=== PATIENT | female | born 1950 | race Caucasian/White ===

== ENCOUNTER 2019-03-24 09:52 | Outpatient (CLI) | payer MEDICARE, SELFPAY | END 2019-03-24 09:53 | disposition home or self-care (01) | PROVIDERS: PCP Family Medicine; Visit Provider Nurse Practitioner Family | DX: J30.9 Allergic rhinitis, unspecified (principal); J45.909 Unspecified asthma, uncomplicated | CPT/HCPCS: 36415; 82103; 82785; 86003 ==

== ENCOUNTER 2019-04-12 09:10 | Outpatient (CLI) | payer MEDICARE, SELFPAY ==
--- NOTE | ~2019-04-12 | XR_ITS ---
XR knee RT 2V, XR knee LT 2V 04/12/2019 09:41 Indication: Chronic knee pain Procedure: 2 views of each knee Comparison: No prior studies for comparison. Findings: There is mild-moderate bilateral tricompartment osteoarthritis of the knees. No fracture or traumatic malalignment. No significant joint effusion. No radiopaque foreign bodies. Impression: 1: Mild-moderate tricompartment osteoarthritis of the knees. Reviewed, dictated and finalized at location B. ING MANAGER Impression: 1: Mild-moderate tricompartment osteoarthritis of the knees. Impression: 1: Mild-moderate tricompartment osteoarthritis of the knees.
== END 2019-04-12 09:11 | disposition home or self-care (01) ==
PROVIDERS: PCP Family Medicine; Visit Provider Nurse Practitioner Family
DX: M17.0 Bilateral primary osteoarthritis of knee (principal)
CPT/HCPCS: 73560

== ENCOUNTER 2019-05-08 09:51 | Outpatient (CLI) | payer MEDICARE, SELFPAY ==
--- NOTE | ~2019-05-08 | DEXA_ITS ---
Bone Density Report Name: Susan Pradhan Age: 68 Sex: Female Ethnicity: White Date of : 1950 Indication: postmenopausal; height loss; asthma or emphysema; hysterectomy; rheumatoid arthritis; Referring Provider: Keesha Henriquez Study: Bone densitometry was performed. Exam Date: May 08, 2019 Accession number: [id number] Bone Density: Region BMD T-score Z-score Classification AP Spine (L1, L2, L3) 1.178 1.5 3.5 Normal Femoral Neck (Left) 0.842 -0.1 1.7 Normal Total Hip (Left) 1.110 1.4 2.9 Normal Total Hip Bilateral Avg 1.091 1.2 2.7 Normal Femoral Neck (Right) 0.900 0.5 2.2 Normal Total Hip (Right) 1.070 1.0 2.5 Normal World Health Organization criteria for BMD impression classify patients as: Normal (T-score at or above -1.0), Osteopenia (T-score between -1.0 and -2.5), or Osteoporosis (T-score at or below -2.5). 10-year Fracture Risk: FRAX not reported because: All T-scores for Spine Total, Hip Total, Femoral Neck at or above -1.0 Clinical Information Provided by Patient: Has rheumatoid arthritis Has the following medical conditions: Asthma or Emphysema, Hysterectomy Patient maximum height was 64 Menopause Age: 33 No regular weight bearing exercise Drinks caffeinated beverages Onset of menses at age 10 Number of children 2 Impression: The patient has normal bone mass. Discussion: BONE DENSITY IS ABOVE THE MINIMUM DESIRABLE LEVEL AT ALL SKELETAL SITES TESTED. This patient?s bone mineral density is above the minimum desirable level (T-score -1.0 or better) at all sites measured. The patient should follow a healthful lifestyle (good nutrition with adequate calcium and vitamin D, and appropriate weight-bearing exercise). Follow-Up: Consider repeating this study in 5 years or sooner if there is some new clinical indication. Reported by: [facility] on 05/08/2019 10:26:00 AM. Reviewed, dictated and finalized at location AFortino KAMARA
== END 2019-05-08 09:52 | disposition home or self-care (01) ==
LOC: ANHIMG 09:54
PROVIDERS: PCP Family Medicine; Visit Provider Student in an Organized Health Care Education/Training Program
DX: Z78.0 Asymptomatic menopausal state (principal)
CPT/HCPCS: 77080

== ENCOUNTER 2019-05-08 09:58 | Outpatient (CLI) | payer MEDICARE, SELFPAY ==
--- NOTE | ~2019-05-08 | MMUS_ITS ---
EXAMINATION: MM diagnostic salud BI w jazmin, US breast BI limited HISTORY: Six-month follow-up for probably benign bilateral breast masses TECHNIQUE: Craniocaudal, mediolateral, and mediolateral oblique 3-D tomosynthesis images of the shreyas ts were performed and synthetic 2-D images were generated. CAD analysis was submitted and interpreted . High resolution limited bilateral breast ultrasound was performed. COMPARISON: 11/03/2018, 03/02/2018, 02/24/2018, 11/09/2016, 09/12/2015 BREAST PARENCHYMAL COMPOSITION: There are scattered areas of fibroglandular density. FINDINGS: MAMMOGRAPHIC FINDINGS: Right breast: Again seen are small, obscured masses in the upper outer quadrant of the breast which d o not demonstrate suspicious interval change. There is a mass of the anterior third of the inner righ t breast which is stable on multiple prior examinations and considered benign given the lack of inter billy change. Scattered benign-appearing calcifications are present. No suspicious architectural distor tion is identified. Left breast: There is no evidence of suspicious mass, calcification, or architectural distortion to suggest malignancy. There has been no suspicious interval change. ULTRASOUND: Right breast: Masses with the appearance of cysts and complicated cysts in the upper outer quadrant o f the right breast are stable to decreased in size since the prior examination. The largest measures 6 mm x 2 mm at the 7:00 location 7 cm from the nipple. None demonstrate suspicious interval change. Left breast: There is a stable 7 mm x 2 mm oval, circumscribed, parallel, hypoechoic mass at the 12:0 0 location with centimeters from the nipple with no posterior features or internal vascularity. There is a stable 6 mm oval, circumscribed, complex cystic and solid mass at the 10:00 location 0.5 cm fro m the nipple which appears to be within the skin. IMPRESSION: 1. Stable, probably benign bilateral breast masses. 2. Given one year of interval stability, recommend 12 month followup bilateral diagnostic mammogram a nd ultrasound. BI-RADS category 3, probably benign findings. Reviewed, dictated and finalized at location A. IMPRESSION: 1. Stable, probably benign bilateral breast masses. 2. Given one year of interval stability, recommend 12 month followup bilateral diagnostic mammogram and ultrasound. BI-RADS category 3, probably benign findings.
== END 2019-05-08 09:59 | disposition home or self-care (01) ==
LOC: ANHIMG 10:01
PROVIDERS: PCP Family Medicine; Visit Provider Nurse Practitioner Family
DX: R92.8 Other abnormal and inconclusive findings on diagnostic imaging of breast (principal)
CPT/HCPCS: 76642; 77062; 77066; 77080; G0279

== ENCOUNTER 2019-06-22 11:42 | Outpatient (CLI) | payer MEDICARE, SELFPAY ==
[2019-06-22 12:14] LABS: Basophils Absolute Auto 0.1 K/mm3 (0.0-0.1); Basophils Percent Auto 0.6 % (0.2-1.2); Eosinophils Absolute Auto 0.1 K/mm3 (0-0.3); Eosinophils Percent Auto 1.3 % (0-4.4); Hematocrit 37.3 % (37.0-47.0); Hemoglobin 11.9 g/dL (12.0-15.0); Immature Granulocyte Absolute 0.03 K/mm3 (0.00-0.031); Immature Granulocyte Percent A 0.3 % (0-0.5); Lymphocytes Absolute Auto 2.52 K/mm3 (0.9-3.2); Lymphocytes Percent Auto 22.5 % (18.3-44.2); Mean Corpuscular HGB Conc 31.9 g/dl (32-36); Mean Corpuscular Hemoglobin 28.7 pg (26-34); Mean Corpuscular Volume 90.1 fl (80-100); Mean Platelet Volume 9.5 fl (7.4-10.4); Monocytes Absolute Auto 0.8 K/mm3 (0.1-0.6); Monocytes Percent Auto 7.3 % (2.6-8.5); Neutrophils Absolute Auto 7.6 K/mm3 (1.3-6.7); Platelet Count Result 329 k/mm3 (150-375); Red Blood Count 4.14 M/mm3 (4.2-5.4); Red Cell Distribution Width 14.2 % (11.5-14.5); White Blood Count 11.2 K/mm3 (4.5-10.0)
[2019-06-22 12:26] LABS: Blood Urea Nitrogen 17 mg/dL (7-17); Calcium 9.3 mg/dL (8.4-10.2); Carbon Dioxide 29 mmol/L (22-30); Chloride 100 mmol/L (98-107); Estimated Glomerular Filt Rate > 60; Glucose 172 mg/dL (65-105); Potassium 3.7 mmol/L (3.4-5.0); Sodium 137 mmol/L (137-145)
== END 2019-06-22 11:43 | disposition home or self-care (01) ==
LOC: ANHLAB 11:45
PROVIDERS: PCP Family Medicine; Visit Provider Nurse Practitioner Family
DX: I10 Essential (primary) hypertension (principal); R42 Dizziness and giddiness
CPT/HCPCS: 36415; 80048; 84443; 85025

== ENCOUNTER 2019-07-17 09:58 | Outpatient (CLI) | payer MEDICARE, SELFPAY ==
[2019-07-17 10:15] LABS: Basophils Absolute Auto 0.1 K/mm3 (0.0-0.1); Basophils Percent Auto 0.6 % (0.2-1.2); Eosinophils Absolute Auto 0.2 K/mm3 (0-0.3); Hematocrit 38.3 % (37.0-47.0); Hemoglobin 12.4 g/dL (12.0-15.0); Immature Granulocyte Absolute 0.05 K/mm3 (0.00-0.031); Immature Granulocyte Percent A 0.4 % (0-0.5); Lymphocytes Absolute Auto 2.25 K/mm3 (0.9-3.2); Mean Corpuscular HGB Conc 32.4 g/dl (32-36); Mean Corpuscular Hemoglobin 28.8 pg (26-34); Mean Corpuscular Volume 88.9 fl (80-100); Mean Platelet Volume 9.1 fl (7.4-10.4); Monocytes Absolute Auto 0.7 K/mm3 (0.1-0.6); Monocytes Percent Auto 6.4 % (2.6-8.5); Neutrophils Percent Auto 70.6 % (45.5-73.1); Platelet Count Result 285 k/mm3 (150-375); Red Blood Count 4.31 M/mm3 (4.2-5.4); Red Cell Distribution Width 13.9 % (11.5-14.5); White Blood Count 11.3 K/mm3 (4.5-10.0)
[2019-07-17 10:27] LABS: Blood Urea Nitrogen 14 mg/dL (7-17); Calcium 9.5 mg/dL (8.4-10.2); Carbon Dioxide 30 mmol/L (22-30); Chloride 97 mmol/L (98-107); Estimated Glomerular Filt Rate > 60; Glucose 210 mg/dL (65-105); Potassium 3.6 mmol/L (3.4-5.0); Sodium 134 mmol/L (137-145)
== END 2019-07-17 09:59 | disposition home or self-care (01) ==
LOC: ANHLAB 10:00
PROVIDERS: PCP Family Medicine; Visit Provider Nurse Practitioner Family
DX: R42 Dizziness and giddiness (principal); D72.829 Elevated white blood cell count, unspecified; E11.9 Type 2 diabetes mellitus without complications; I10 Essential (primary) hypertension
CPT/HCPCS: 36415; 80048; 84443; 85025

== ENCOUNTER 2019-07-31 09:04 | Outpatient (CLI) | payer MEDICARE, SELFPAY ==
[2019-07-31 09:20] LABS: Hematocrit 36.7 % (37.0-47.0); Hemoglobin 11.7 g/dL (12.0-15.0); Mean Corpuscular HGB Conc 31.9 g/dl (32-36); Mean Corpuscular Hemoglobin 28.7 pg (26-34); Mean Platelet Volume 9.2 fl (7.4-10.4); Platelet Count Result 300 k/mm3 (150-375); Red Blood Count 4.08 M/mm3 (4.2-5.4); Red Cell Distribution Width 14.2 % (11.5-14.5); White Blood Count 12.4 K/mm3 (4.5-10.0)
[2019-07-31 09:35] LABS: Blood Urea Nitrogen 21 mg/dL (7-17); Calcium 9.2 mg/dL (8.4-10.2); Carbon Dioxide 30 mmol/L (22-30); Chloride 100 mmol/L (98-107); Estimated Glomerular Filt Rate > 60; Glucose 203 mg/dL (65-105); Potassium 3.6 mmol/L (3.4-5.0); Sodium 139 mmol/L (137-145)
== END 2019-07-31 09:05 | disposition home or self-care (01) ==
LOC: ANHLAB 09:07
PROVIDERS: PCP Family Medicine; Visit Provider Nurse Practitioner Family
DX: E87.1 Hypo-osmolality and hyponatremia (principal); D72.829 Elevated white blood cell count, unspecified
CPT/HCPCS: 36415; 80048; 85027

== ENCOUNTER 2019-08-30 09:27 | Outpatient (CLI) | payer MEDICARE, SELFPAY ==
[2019-08-30 09:42] LABS: Basophils Percent Auto 0.5 % (0.2-1.2); Eosinophils Absolute Auto 0.1 K/mm3 (0-0.3); Eosinophils Percent Auto 1.6 % (0-4.4); Hematocrit 34.6 % (37.0-47.0); Hemoglobin 10.9 g/dL (12.0-15.0); Immature Granulocyte Absolute 0.03 K/mm3 (0.00-0.031); Immature Granulocyte Percent A 0.3 % (0-0.5); Lymphocytes Absolute Auto 2.25 K/mm3 (0.9-3.2); Lymphocytes Percent Auto 26.2 % (18.3-44.2); Mean Corpuscular HGB Conc 31.5 g/dl (32-36); Mean Corpuscular Hemoglobin 28.4 pg (26-34); Mean Corpuscular Volume 90.1 fl (80-100); Mean Platelet Volume 8.5 fl (7.4-10.4); Monocytes Absolute Auto 0.7 K/mm3 (0.1-0.6); Monocytes Percent Auto 8.5 % (2.6-8.5); Neutrophils Absolute Auto 5.4 K/mm3 (1.3-6.7); Neutrophils Percent Auto 62.9 % (45.5-73.1); Platelet Count Result 234 k/mm3 (150-375); Red Blood Count 3.84 M/mm3 (4.2-5.4); Red Cell Distribution Width 14.3 % (11.5-14.5); White Blood Count 8.6 K/mm3 (4.5-10.0)
== END 2019-08-30 09:28 | disposition home or self-care (01) ==
LOC: ANHLAB 09:30
PROVIDERS: PCP Family Medicine; Visit Provider Internal Medicine Hematology & Oncology
DX: D72.829 Elevated white blood cell count, unspecified (principal)
CPT/HCPCS: 36415; 85025

== ENCOUNTER 2019-08-31 14:43 | Outpatient (CLI) | payer MEDICARE, SELFPAY ==
[2019-08-31 16:37] LABS: Iron 62 ug/dL (37-170)
[2019-08-31 16:43] LABS: Alanine Aminotransferase 22 U/L (4-35); Albumin Level 4.2 g/dL (3.5-5.1); Alkaline Phosphatase 103 U/L (38-126); Anion Gap 13.9 mmol/L (7-16); Aspartate Amino Transferase 32 U/L (14-36); Bilirubin,Total 0.5 mg/dL (0.2-1.3); Blood Urea Nitrogen 27 mg/dL (7-17); Calcium 9.1 mg/dL (8.4-10.2); Carbon Dioxide 26 mmol/L (22-30); Chloride 101 mmol/L (98-107); Estimated Glomerular Filt Rate > 60; Glucose 168 mg/dL (65-105); Potassium 3.9 mmol/L (3.4-5.0); Sodium 137 mmol/L (137-145)
[2019-08-31 16:51] LABS: Percent Iron Saturation 18 % (20-50)
== END 2019-08-31 14:44 | disposition home or self-care (01) ==
PROVIDERS: PCP Family Medicine; Visit Provider Internal Medicine Hematology & Oncology
DX: D64.9 Anemia, unspecified (principal)
CPT/HCPCS: 36415; 80053; 82607; 82728; 83540; 83550

== ENCOUNTER 2019-09-11 08:57 | Outpatient (CLI) | payer MEDICARE, SELFPAY ==
[2019-09-11 09:39] LABS: Add Urine Microscopic? YES; Appearance Urine Cloudy (Clear); Bilirubin Urine Negative (Negative); Blood Urine 1+ (Negative); Color Urine Yellow (Yellow); Glucose Urine UA Negative (Negative); Ketones Urine Negative (Negative); Leukocyte Esterase Ur 3+ LEU/UL (Negative); Mucus Urine Rare /lpf; Nitrate Urine Negative (Negative); Protein Urine 2+ mg/dL (Negative); Specific Grav Ur 1.023 (1.001-1.035); Squamous Epithelial Cell Urine Many /hpf (Few); Urobilinogen Urine Negative mg/dL (<2.0)
[2019-09-11 09:47] LABS: Albumin Level 4.3 g/dL (3.5-5.1); Anion Gap 13.8 mmol/L (7-16); Blood Urea Nitrogen 29 mg/dL (7-17); Calcium 9.2 mg/dL (8.4-10.2); Carbon Dioxide 28 mmol/L (22-30); Chloride 99 mmol/L (98-107); Estimated Glomerular Filt Rate 44; Glucose 173 mg/dL (65-105); Phosphorus 3.7 mg/dL (2.5-4.5); Potassium 3.8 mmol/L (3.4-5.0); Sodium 137 mmol/L (137-145)
[2019-09-11 10:01] LABS: Creatinine Urine 189.1 mg/dL; Total Protein Urine Random 59 mg/dL
== END 2019-09-11 08:58 | disposition home or self-care (01) ==
LOC: ANHLAB 09:02
PROVIDERS: PCP Family Medicine; Visit Provider Internal Medicine Nephrology
DX: I10 Essential (primary) hypertension (principal)
CPT/HCPCS: 36415; 80069; 81001; 82088; 82570; 84156; 84244; 87077; 87086; 87088

== ENCOUNTER 2019-09-26 07:36 | Outpatient (CLI) | payer MEDICARE, SELFPAY ==
--- NOTE | ~2019-09-26 | US_ITS ---
EXAMINATION: US retroperitoneal duplex ltd EXAM DATE: 09/26/2019 09:05 INDICATION: Essential hypertension. Kidney TECHNIQUE: Multiple grayscale and Doppler images of the kidneys and renal arteries were obtained. T here is no prior study for comparison. FINDINGS: The aorta peak systolic velocity is 75 cm/s. The right renal artery peak systolic velocity is 164 cm/ s in the proximal segment, 128 cm/s in the mid segment, and 119 cm/s in the distal segment. The left renal artery peak systolic velocity is 121 cm/s in the proximal segment, 107 cm/s in the mid segment, and 116 cm/s in the distal segment. IMPRESSION: 1. Renal artery Doppler velocities within normal limits. Reviewed, dictated and finalized at location B.
== END 2019-09-26 07:37 | disposition home or self-care (01) ==
PROVIDERS: PCP Family Medicine; Visit Provider Internal Medicine Nephrology
DX: I10 Essential (primary) hypertension (principal)
CPT/HCPCS: 93976

== ENCOUNTER 2019-10-18 14:51 | Outpatient (CLI) | payer MEDICARE, SELFPAY ==
[2019-10-18 18:05] LABS: Folic Acid 7.5 ng/mL (2.76->20)
== END 2019-10-18 14:52 | disposition home or self-care (01) ==
PROVIDERS: PCP Family Medicine; Visit Provider Internal Medicine Hematology & Oncology
DX: D51.9 Vitamin B12 deficiency anemia, unspecified (principal)
CPT/HCPCS: 36415; 82607; 82746

== ENCOUNTER 2019-11-27 10:07 | Outpatient (CLI) | payer MEDICARE, SELFPAY ==
[2019-11-27 10:57] LABS: Basophils Absolute Auto 0.1 K/mm3 (0.0-0.1); Basophils Percent Auto 0.6 % (0.2-1.2); Eosinophils Absolute Auto 0.2 K/mm3 (0-0.3); Eosinophils Percent Auto 1.4 % (0-4.4); Hemoglobin 10.8 g/dL (12.0-15.0); Immature Granulocyte Absolute 0.03 K/mm3 (0.00-0.031); Immature Granulocyte Percent A 0.3 % (0-0.5); Lymphocytes Absolute Auto 2.13 K/mm3 (0.9-3.2); Lymphocytes Percent Auto 19.8 % (18.3-44.2); Mean Corpuscular HGB Conc 31.8 g/dl (32-36); Mean Corpuscular Hemoglobin 29.1 pg (26-34); Mean Corpuscular Volume 91.6 fl (80-100); Mean Platelet Volume 8.9 fl (7.4-10.4); Monocytes Absolute Auto 0.8 K/mm3 (0.1-0.6); Monocytes Percent Auto 7.2 % (2.6-8.5); Neutrophils Absolute Auto 7.6 K/mm3 (1.3-6.7); Neutrophils Percent Auto 70.7 % (45.5-73.1); Platelet Count Result 263 k/mm3 (150-375); Red Blood Count 3.71 M/mm3 (4.2-5.4); Red Cell Distribution Width 14.1 % (11.5-14.5); White Blood Count 10.8 K/mm3 (4.5-10.0)
[2019-11-27 11:01] LABS: Blood Urea Nitrogen 13 mg/dL (8-26); Carbon Dioxide 29 mmol/L (22-30); Chloride 97 mmol/L (98-109); Estimated Glomerular Filt Rate > 60; Glucose 136 mg/dL (70-105); Potassium 3.6 mmol/L (3.5-4.9); Sodium 140 mmol/L (138-146)
[2019-11-27 13:19] LABS: Iron 45 ug/dL (37-170)
[2019-11-27 13:22] LABS: Alanine Aminotransferase 21 U/L (4-35); Albumin Level 4.1 g/dL (3.5-5.1); Alkaline Phosphatase 77 U/L (38-126); Anion Gap 9 mmol/L (8-16); Aspartate Amino Transferase 33 U/L (14-36); Bilirubin,Total 0.5 mg/dL (0.2-1.3); Blood Urea Nitrogen 15 mg/dL (7-17); Calcium 9.4 mg/dL (8.4-10.2); Carbon Dioxide 32 mmol/L (22-30); Chloride 98 mmol/L (98-107); Estimated Glomerular Filt Rate > 60; Glucose 135 mg/dL (65-105); Sodium 139 mmol/L (137-145)
[2019-11-27 14:20] LABS: Percent Iron Saturation 13 % (20-50)
[2019-11-27 15:20] LABS: Folic Acid 6.9 ng/mL (2.76->20)
== END 2019-11-27 10:08 | disposition home or self-care (01) ==
LOC: ANHLAB 10:09
PROVIDERS: PCP Family Medicine; Visit Provider Internal Medicine Hematology & Oncology
DX: D64.9 Anemia, unspecified (principal); D51.9 Vitamin B12 deficiency anemia, unspecified
CPT/HCPCS: 36415; 80048; 80053; 82607; 82728; 82746; 83540; 83550; 85025

== ENCOUNTER 2020-01-26 11:53 | Outpatient (NON) | payer MEDICARE, SELFPAY ==
[2020-01-27 01:18] LABS: SARS-CoV-2 RNA PCR Negative
== END 2020-01-26 11:54 ==
LOC: ANHCOVIDDT 11:55
PROVIDERS: PCP Family Medicine; Visit Provider Nurse Practitioner Family
DX: Z20.828 Contact with and (suspected) exposure to other viral communicable diseases (principal)
CPT/HCPCS: 87635; C9803; U0003

== ENCOUNTER 2020-02-16 09:17 | Outpatient (CLI) | payer MEDICARE, SELFPAY ==
[2020-02-16 09:45] LABS: Basophils Percent Auto 0.4 % (0.2-1.2); Eosinophils Absolute Auto 0.1 K/mm3 (0-0.3); Eosinophils Percent Auto 1.2 % (0-4.4); Hematocrit 33.4 % (37.0-47.0); Hemoglobin 10.6 g/dL (12.0-15.0); Immature Granulocyte Absolute 0.02 K/mm3 (0.00-0.031); Immature Granulocyte Percent A 0.2 % (0-0.5); Lymphocytes Absolute Auto 2.15 K/mm3 (0.9-3.2); Mean Corpuscular HGB Conc 31.7 g/dl (32-36); Mean Corpuscular Volume 91.5 fl (80-100); Mean Platelet Volume 9.4 fl (7.4-10.4); Monocytes Absolute Auto 0.7 K/mm3 (0.1-0.6); Neutrophils Absolute Auto 6.8 K/mm3 (1.3-6.7); Neutrophils Percent Auto 69.2 % (45.5-73.1); Platelet Count Result 252 k/mm3 (150-375); Red Blood Count 3.65 M/mm3 (4.2-5.4); Red Cell Distribution Width 13.6 % (11.5-14.5); White Blood Count 9.8 K/mm3 (4.5-10.0)
[2020-02-16 15:18] LABS: Iron 51 ug/dL (37-170)
[2020-02-16 15:23] LABS: Alanine Aminotransferase 18 U/L (4-35); Alkaline Phosphatase 85 U/L (38-126); Anion Gap 10 mmol/L (8-16); Aspartate Amino Transferase 26 U/L (14-36); Bilirubin,Total 0.4 mg/dL (0.2-1.3); Blood Urea Nitrogen 19 mg/dL (7-17); Calcium 9.2 mg/dL (8.4-10.2); Carbon Dioxide 29 mmol/L (22-30); Chloride 100 mmol/L (98-107); Estimated Glomerular Filt Rate > 60; Glucose 176 mg/dL (65-105); Potassium 3.6 mmol/L (3.4-5.0); Sodium 139 mmol/L (137-145)
[2020-02-16 15:30] LABS: Percent Iron Saturation 14 % (20-50)
[2020-02-16 16:23] LABS: Folic Acid 8.1 ng/mL (2.76->20)
== END 2020-02-16 09:18 | disposition home or self-care (01) ==
LOC: ANHLAB 09:19
PROVIDERS: PCP Family Medicine; Visit Provider Internal Medicine Hematology & Oncology
DX: D72.829 Elevated white blood cell count, unspecified (principal); D51.9 Vitamin B12 deficiency anemia, unspecified; D64.9 Anemia, unspecified
CPT/HCPCS: 36415; 80053; 82607; 82728; 82746; 83540; 83550; 85025

== ENCOUNTER 2020-03-11 08:23 | Outpatient (CLI) | payer MEDICARE, SELFPAY ==
[2020-03-11 09:07] LABS: Anion Gap 7 mmol/L (8-16); Blood Urea Nitrogen 19 mg/dL (7-17); Calcium 8.9 mg/dL (8.4-10.2); Carbon Dioxide 31 mmol/L (22-30); Chloride 102 mmol/L (98-107); Estimated Glomerular Filt Rate 55; Glucose 128 mg/dL (65-105); Phosphorus 3.1 mg/dL (2.5-4.5); Potassium 3.9 mmol/L (3.4-5.0); Sodium 140 mmol/L (137-145)
[2020-03-11 09:10] LABS: Creatinine Urine 171.7 mg/dL; Total Protein Urine Random 31 mg/dL; Ur Ttl Prot Creatinine Ratio 0.18 mg/mg (0-0.20)
== END 2020-03-11 08:24 | disposition home or self-care (01) ==
PROVIDERS: PCP Family Medicine; Visit Provider Internal Medicine Nephrology
DX: R80.8 Other proteinuria (principal); I10 Essential (primary) hypertension
CPT/HCPCS: 36415; 80069; 82570; 84156

== ENCOUNTER 2020-05-14 18:08 | Observation (INO) | payer MEDICARE, SELFPAY ==
[2020-05-14] VITALS (24 sets, daily range): BP systolic 97–119; BP diastolic 44–88; PULSE 52–95; RESP 14–23; TEMP 36.3–36.6; O2SAT 93–100; BMI 38.1
--- NOTE | ~2020-05-14 | XR_ITS ---
EXAMINATION: XR chest 1V portable INDICATION: Slurred speech, transient alteration of awareness TECHNIQUE: Portable AP chest at 1832 hours COMPARISON: 01/06/2019 FINDINGS: The lungs are free of acute opacities. There is no pleural effusion or pneumothorax. The ca rdiomediastinal silhouette is normal. IMPRESSION: 1. No acute cardiopulmonary abnormality. Reviewed, dictated and finalized at location A.
--- NOTE | ~2020-05-14 | CT_ITS ---
EXAMINATION: CTA brain carotid DATE: 05/14/2020 19:24 INDICATION: Slurred speech and difficulty walking TECHNIQUE: Computed tomographic angiography (CTA) of the head was performed with 100 mL Omnipaque-350 intravenous contrast. CTA of the neck was performed with intravenous contrast. The dose-length produ ct was 1151.34 mGy-cm. Maximum intensity projection and volume rendered 3D-reconstructions were creat ed by the technologist on a separate workstation. Automated exposure control and iterative reconstruc tion technique were employed. COMPARISON: CT from today and MRI dated 04/22/2018 FINDINGS: HEAD CTA: There is no acute intraparenchymal hemorrhage. There is a stable 11 mm mass at the undersur face of the right cerebellar tentorium, consistent with a meningioma. No evidence of acute infarction . There is mild periventricular and subcortical hypodensity probably related to small vessel ischemic disease. There is mild prominence of the sulci and ventricles related to cerebral atrophy. Intracran ial calcified cerebral atherosclerosis is noted. There are no extra-axial collections. There is no ma ss effect or midline shift. Changes in the globes are likely from ocular lens surgery. . The visuali zed sinuses and mastoid air cells are well aerated. There is no significant stenosis of the basilar artery or posterior cerebral arteries. There is no si gnificant stenosis of the intracranial internal carotid arteries or the anterior or middle cerebral a rteries. The anterior communicating artery and posterior communicating arteries are normal. There is no aneurysm. NECK CTA: The thyroid gland is unremarkable. The submandibular and parotid glands are symmetric. Ther e is no lymphadenopathy. There are no masses identified. The airway is unremarkable. There is moderat e cervical spondylosis. The superior mediastinum is unremarkable. There is 6% stenosis of the proximal right internal carotid artery relative to normal distal artery l umen diameter (NASCET criteria). There is 0% stenosis of the proximal left internal carotid artery re lative to normal distal artery lumen diameter. IMPRESSION: 1. No acute intracranial abnormality. Normal head CTA. 2. 6% stenosis of the proximal right internal carotid artery relative to normal distal artery lumen d iameter (NASCET criteria). 3. 0% stenosis of the proximal left internal carotid artery relative to normal distal artery lumen di ameter. Reviewed, dictated and finalized at location A. IMPRESSION: 1. No acute intracranial abnormality. Normal head CTA. 2. 6% stenosis of the proximal right internal carotid artery relative to normal distal artery lumen diameter (NASCET criteria). 3. 0% stenosis of the proximal left internal carotid artery relative to normal distal artery lumen diameter.
--- NOTE | ~2020-05-14 | CT_ITS ---
EXAMINATION: CT brain wo con INDICATION: Slurred speech COMPARISON: None TECHNIQUE: Standard unenhanced head CT. The dose-length product (DLP) was 605.33 mGy-cm. The mA was a djusted according to patient size. Iterative reconstruction technique was employed. FINDINGS: There is no acute intraparenchymal hemorrhage. No evidence of acute infarction. There is a stable 11 mm mass at the undersurface of the right cerebellar tentorium, consistent with a meningioma . There is mild periventricular and subcortical hypodensity probably related to small vessel ischemic disease. There is mild prominence of the sulci and ventricles related to cerebral atrophy. Intracran ial calcified cerebral atherosclerosis is noted. There are no extra-axial collections. There is no ma ss effect or midline shift. Changes in the globes are likely from ocular lens surgery. The visualize d sinuses and mastoid air cells are well aerated. IMPRESSION: 1. No acute intracranial abnormality. 2. Age related findings. As per stroke protocol, I called these results to the Emergency Department, and discussed with STEVEN Styles at 1636 hours on 05/14/2020. Reviewed, dictated and finalized at location A.
--- NOTE | ~2020-05-14 | US_ITS ---
EXAMINATION: US carotid duplex BI EXAM DATE: 05/15/2020 12:50 INDICATION: Vertigo. TECHNIQUE: Grayscale, color and pulsed Doppler images of the cervical carotid arteries were obtained . The degree of vessel stenosis is placed in one of the following categories: normal, <50% stenosis, 50-69% stenosis, >=70% stenosis but less than near-occlusion, near-occlusion, or occlusion. Note that percent stenosis relative to normal distal artery lumen diameter is indirectly measured from velocit y measurements as described by Davi, et al. Radiology 2003; 229:340-346. Correlation is made to CTA from yesterday. FINDINGS: RIGHT SIDE: Right common carotid artery peak systolic velocity (PSV in cm/s): 66 Right bulb/internal carotid artery peak systolic velocity (PSV in cm/s): 78 Right internal carotid artery end diastolic velocity (EDV in cm/s): 66 Right ICA/CCA peak systolic ratio: 1.2 Right external carotid artery peak systolic velocity (PSV in cm/s): 68 Right vertebral artery antegrade flow: yes There is mild carotid bulb plaque. Velocity and Doppler waveforms in the common and internal carotid arteries is normal. LEFT SIDE: Left common carotid artery peak systolic velocity (PSV in cm/s): 82 Left bulb/internal carotid artery peak systolic velocity (PSV in cm/s): 77 Left internal carotid artery end diastolic velocity (EDV in cm/s): 15 Left ICA/CCA peak systolic ratio: 0.9 Left external carotid artery peak systolic velocity (PSV in cm/s): 62 Left vertebral artery antegrade flow: yes There is mild carotid bulb plaque. Velocity and Doppler waveforms in the common and internal carotid arteries is normal. IMPRESSION: 1. Less than 50% stenosis right internal carotid artery. 2. Less than 50% stenosis left internal carotid artery. Reviewed, dictated and finalized at location A.
--- NOTE | ~2020-05-14 | MR_ITS ---
EXAMINATION: MR brain/brain stem wo/w con DATE: 05/15/2020 12:44 INDICATION: Cerebrovascular accident. Dizziness. TECHNIQUE: Magnetic resonance imaging (MRI) of the brain and brainstem was performed without and with 19 mL MultiHance intravenous contrast. Sequences included sagittal and axial T1-weighted FSE, axial diffusion-weighted FS EPI, axial T2*-weighted GRE, axial T2-weighted FLAIR Propeller, and axial T2-we ighted Propeller. Postcontrast sequences included axial, sagittal, and coronal T1-weighted FSE. Appar ent diffusion coefficient (ADC) maps were created. COMPARISON: Brain MRI 04/22/2018, head CT 05/14/2020 FINDINGS: There are scattered areas of nonspecific increased T2-weighted signal intensity in the cere bral white matter, which is within normal limits for the patient's age. There is an 11 mm enhancing e xtra-axial mass at the undersurface of the right cerebellar tentorium, stable from 04/22/18. There is no intracranial hemorrhage. The ventricles are normal in size. There is a trace left mastoid effusion . There are likely changes of ocular lens replacement surgeries. The paranasal sinuses are clear. IMPRESSION: 1. Stable 11 mm extra-axial mass at the undersurface of the right cerebellar tentorium, consistent wi th a meningioma. Reviewed, dictated and finalized at location A. IMPRESSION: 1. Stable 11 mm extra-axial mass at the undersurface of the right cerebellar te ntorium, consistent with a meningioma.
--- NOTE | 2020-05-14 18:13 | ECG_ITS ---
Measurements Intervals [place] Rate: 54 P: 86 HI: 180 QRS: -11 QRSD: 95 T: 93 QT: 494 QTc: 468 Interpretive Statements SINUS BRADYCARDIA BORDERLINE R WAVE PROGRESSION, ANTERIOR LEADS CONSIDER INFERIOR INFARCT, AGE INDETERMINATE BORDERLINE ST-T WAVE ABNORMALITY- HIGH LATERAL LEADS BASELINE ARTIFACT- II, III, AVF, V3-V6 ABNORMAL ECG Electronically Signed On 05-14-2020 19:02:25 CDT by Mansoor Hernandes D.O.
[2020-05-14 18:30] LABS: Glucose Point of Care 198 (65-105)
[2020-05-14 18:33] LABS: Basophils Absolute Auto 0.1 K/mm3 (0.0-0.1); Basophils Percent Auto 0.6 % (0.2-1.2); Eosinophils Absolute Auto 0.2 K/mm3 (0-0.3); Eosinophils Percent Auto 1.8 % (0-4.4); Hematocrit 32.3 % (37.0-47.0); Hemoglobin 9.9 g/dL (12.0-15.0); Immature Granulocyte Absolute 0.03 K/mm3 (0.00-0.031); Immature Granulocyte Percent A 0.3 % (0-0.5); Lymphocytes Absolute Auto 3.58 K/mm3 (0.9-3.2); Lymphocytes Percent Auto 30.9 % (18.3-44.2); Mean Corpuscular HGB Conc 30.7 g/dl (32-36); Mean Corpuscular Hemoglobin 28.8 pg (26-34); Mean Corpuscular Volume 93.9 fl (80-100); Mean Platelet Volume 9.1 fl (7.4-10.4); Monocytes Absolute Auto 1.1 K/mm3 (0.1-0.6); Monocytes Percent Auto 9.8 % (2.6-8.5); Neutrophils Absolute Auto 6.6 K/mm3 (1.3-6.7); Neutrophils Percent Auto 56.6 % (45.5-73.1); Platelet Count Result 294 k/mm3 (150-375); Red Blood Count 3.44 M/mm3 (4.2-5.4); Red Cell Distribution Width 14.1 % (11.5-14.5); White Blood Count 11.6 K/mm3 (4.5-10.0)
--- NOTE | 2020-05-14 18:34 | ED.NEUROSD ---
HPI - Neuro Symptoms/Deficit General Chief Complaint: Suspected CVA <Damien Howard PA-C - Last Filed: 05/14/20 20:25> Stated Complaint: unsteady on feet/room spinning/slurred speech 1730 <Damien Howard PA-C - Last Filed: 05/14/20 20:25> Time Seen by Provider: 05/14/20 18:14 <Damien Howard PA-C - Last Filed: 05/14/20 20:25> Source: patient <Damien Howard PA-C - Last Filed: 05/14/20 20:25> Mode of arrival: ambulatory <GRZEGORZ Celaya Last Filed: 05/14/20 20:25> Limitations: no limitations <Damien Howard PA-C - Last Filed: 05/14/20 20:25> History of Present Illness HPI Narrative: Patient is 69-year-old female who presents to emergency department for evaluation of dizziness unsteady gait that occurred around 530 when coming to dinner she had been fine prior to this patient on arrival is accompanied by son presents per EMS patient is alert and oriented x3 notes some dizziness with sitting up but otherwise is answering questions appropriately. Patient on arrival has clear speech resting comfortably moving all extremities without difficulty denies any injury or trauma patient has been speaking with her sister just prior to onset of symptoms and the discussion was normal per son who spoke with the sister. <Damien Howard PA-C - Last Filed: 05/14/20 20:25> Related Data Home Medications: Home Medications Medication Instructions Recorded Confirmed aspirin 81 mg tablet,delayed 81 mg PO DAILY 01/19/19 05/06/20 release <Damien Howard PA-C - Last Filed: 05/14/20 20:25> Allergies/Adverse Reactions: Allergies Allergy/AdvReac Type Severity Reaction Status Date / Time No Known Allergies Allergy Verified 05/06/20 10:01 <Damien Howard PA-C - Last Filed: 05/14/20 20:25> Review of Systems Review of Systems: All systems reviewed & are unremarkable except as noted in HPI and below <Damien Howard PA-C - Last Filed: 05/14/20 20:25> [facility] Past Medical History Medical History: Medical History Acid reflux Anxiety Asthma BMI 34.0-34.9,adult BMI 37.0-37.9, adult BMI 38.0-38.9,adult COPD (chronic obstructive pulmonary disease) Diabetes Frequent headaches H/O vaginal delivery x2 11/1971, 07/1970 History of blood transfusion History of one miscarriage 1968 HTN (hypertension) Pneumonia <Damien Howard PA-C - Last Filed: 05/14/20 20:25> Surgical History Surgical History: Surgical History H/O dilation and curettage 1968 H/O total hysterectomy with removal of both tubes and ovaries 1995 History of bladder surgery 1995 [place] teeth removed 1971 <Damien Howard PA-C - Last Filed: 05/14/20 20:25> Family History Family History: Family History Mother , 79 Family history of cardiovascular disease Breast cancer Hypertension Diabetes mellitus Acute myocardial infarction Thrombocyte disorder Father , 64 Family history of pancreatic cancer Family history of lung cancer High cholesterol Hypertension Diabetes mellitus Sibling Family history of lung cancer Ovarian cancer Diabetes mellitus Grandparent Family history of lung cancer Son , 46 Family history of lung cancer Family history of malignant neoplasm of brain Family history of malignant neoplasm of bone Family history of primary malignant neoplasm of liver Hypertension Diabetes mellitus <Damien Howard PA-C - Last Filed: 05/14/20 20:25> Social History Social History: Social History Smoking status: Former smoker Tobacco type: cigarettes Second hand tobacco smoke exposure: Yes Alcohol intake: former Substance use: never Substance u
[2020-05-14 18:46] LABS: INR 0.9
[2020-05-14 18:47] LABS: Partial Thromboplastin Time 23.5 SECONDS (22.3-36.8)
[2020-05-14 18:52] LABS: Anion Gap 7 mmol/L (8-16); Blood Urea Nitrogen 18 mg/dL (7-17); Calcium 8.7 mg/dL (8.4-10.2); Carbon Dioxide 29 mmol/L (22-30); Chloride 104 mmol/L (98-107); Estimated CRCL calculation 48 ml/min; Estimated Glomerular Filt Rate 49; Glucose 195 mg/dL (65-105); Sodium 140 mmol/L (137-145)
[2020-05-14 19:03] LABS: Troponin I < 0.012 ng/mL (0.000-0.034)
--- NOTE | 2020-05-14 19:10 | PC.NURSE ---
Report given to ELADIO Hinojosa and Gabriela RN
--- NOTE | 2020-05-14 19:27 | PC.NURSE ---
assumed care of pt. report from Tanisha.
[2020-05-14] MEDS: SODIUM CHLORIDE 0.9% IV 500 ML 999 ML IV CONT (19:39)
[2020-05-14] MEDS: ASPIRIN 325 MG ENTERIC TABLET PO (21:10)
[2020-05-14 21:40] LABS: Add Urine Microscopic? YES; Appearance Urine Cloudy (Clear); Bilirubin Urine Negative (Negative); Blood Urine Negative (Negative); Color Urine Yellow (Yellow); Glucose Urine UA Negative (Negative); Ketones Urine Negative (Negative); Leukocyte Esterase Ur 1+ LEU/UL (Negative); Mucus Urine Rare /lpf; Nitrate Urine Negative (Negative); Protein Urine 1+ mg/dL (Negative); Specific Grav Ur 1.038 (1.001-1.035); Squamous Epithelial Cell Urine Many /hpf (Few)
--- NOTE | 2020-05-14 23:51 | PC.NURSE ---
This patient, Susan Pradhan, was admitted to 3 [facility] Surg Room 300-01 @ 22:55. Patient/family oriented to hospital policies and general routines including ID bracelet, bed and alarms, visiting hours, pain management, procedures, bathroom and other care routines, personal items, smoking policy, room service/diet, and visiting hours. Information on how to activate the Rapid Response Team has been discussed. Patient/Family are encouraged to report perceived risks to care and to ask questions if they do not understand what they are told or what they should do.
[2020-05-15] VITALS (8 sets, daily range): BP systolic 151–177; BP diastolic 57–64; PULSE 49–57; RESP 18–20; TEMP 36.2–36.6; O2SAT 97–98
--- NOTE | 2020-05-15 04:58 | PM.IMHP ---
H&P: HPI History of Present Illness Date/Time: 05/15/20 04:58 Chief Complaint: Slurred speech Narrative: 69-year-old female with a past medical history of meningioma, hypertension, diabetes and obesity who presented to the ER due to slurred speech. The patient had MRI of the brain at [facility] November 2019 to monitor her meningioma a demonstrated stable size and overall appearance of a meningioma emanating from the posterior medial right tentorium. Stable moderate atrophy and small-vessel ischemic disease [facility] Past Medical History Medical History (Updated 05/15/20 @ 05:07 by Kelsea Stanley DO) Acid reflux Anxiety Asthma COPD (chronic obstructive pulmonary disease) Mildly decreased DLCO on PFTs December 2018 Diabetes Frequent headaches H/O vaginal delivery x2 11/1971, 07/1970 History of blood transfusion History of one miscarriage 1968 HTN (hypertension) Pneumonia Surgical History Surgical History H/O dilation and curettage 1968 H/O total hysterectomy with removal of both tubes and ovaries 1995 History of bladder surgery 1995 [place] teeth removed 1971 Family History Family History Mother , 79 Family history of cardiovascular disease Breast cancer Hypertension Diabetes mellitus Acute myocardial infarction Thrombocyte disorder Father , 64 Family history of pancreatic cancer Family history of lung cancer High cholesterol Hypertension Diabetes mellitus Sibling Family history of lung cancer Ovarian cancer Diabetes mellitus Grandparent Family history of lung cancer Son , 46 Family history of lung cancer Family history of malignant neoplasm of brain Family history of malignant neoplasm of bone Family history of primary malignant neoplasm of liver Hypertension Diabetes mellitus Social History Social History Smoking status: Former smoker Tobacco type: cigarettes Second hand tobacco smoke exposure: Yes Additional smoking assessment comments: smoked as a teenager Alcohol intake: former Substance use: never Substance use type: does not use Additional occupation/education comments: [employer] Gender identity (if verbalized by the patient): Female Spiritual care concerns: No Meds Home Medications and Allergies Home Medications Medication Instructions Recorded Confirmed Type aspirin 81 mg tablet,delayed 81 mg PO DAILY 01/19/19 05/14/20 History release montelukast 10 mg tablet 10 mg PO DAILY 30 Days #90 tablet 06/22/19 05/14/20 Rx furosemide 20 mg tablet 20 mg PO QAM PRN #30 tablet 09/26/19 05/14/20 Rx albuterol sulfate 90 mcg/actuation 1 puff INHALATION Q4-6H PRN #18 gm 11/01/19 05/14/20 Rx aerosol inhaler glimepiride 1 mg tablet 1 mg PO BID #180 tablet 11/10/19 05/14/20 Rx omeprazole 20 mg capsule,delayed 20 mg PO DAILY PRN #90 cap 12/16/19 05/14/20 Rx release nifedipine 30 mg tablet,extended 30 mg PO DAILY #90 tablet 01/11/20 05/14/20 Rx release metformin 500 mg tablet 1,000 mg PO BID #360 tablet 02/20/20 05/14/20 Rx losartan 100 See Rx Instructions .ROUTE 03/18/20 05/14/20 Rx mg-hydrochlorothiazide 25 mg tablet .COMPLEX #90 tablet metoprolol tartrate 100 mg tablet 100 mg PO Q12H #180 tablet 03/18/20 05/14/20 Rx rosuvastatin 20 mg tablet 20 mg PO DAILY #90 tablet 03/18/20 05/14/20 Rx Allergies Allergy/AdvReac Type Severity Reaction Status Date / Time No Known Allergies Allergy Verified 05/06/20 10:01 Vital Signs Vital Signs - 24 hr 05/14/20 18:24 05/14/20 18:25 05/14/20 18:34 Temperature 97.8 F Pulse Rate 60 59 L 53 L Respiratory Rate 22 H 22 H 17 Blood Pressure 116/88 112/50 L Pulse Oximetry 95 100 05/14/20 18:35 05/14/20 18:41 05/14/20 18:45 Temperature Pulse Ra
[2020-05-15] MEDS: LACTATED RINGERS 1,000 ML 75 ML IV CONT (06:00)
[2020-05-15 08:18] LABS: Glucose Point of Care 102 (65-105)
--- NOTE | 2020-05-15 12:46 | PCSTNOTE ---
Please refer to the Bedside Swallow Evaluation in the EMR. Please note, silent aspiration cannot be ruled out at bedside.
--- NOTE | 2020-05-15 17:29 | PM.SD2 ---
Same Day Admit/Disch: HPI History of Present Illness Chief complaint: dizziness Narrative: Susan Pradhan is a 69 year old female with history of leukocytosis under surveillance of hematology for early leukemia, osteoarthritis bilateral knees, obesity, hypertension, diabetes mellitus, early dementia, IBS, HLD, meningioma under surveillance for the last 14 years, who presents to the emergency room with chief complaint of dizziness, slurred speech, difficulty ambulating, confusion lasted for approximately 1 hour and then resolved spontaneously. Patient denies any history of seizure, loss of bowel or bladder incontinence. Her confusion resolved when her motor symptoms improved. Patient reports that she has had a headache for the last week unrelieved with Tylenol or Imitrex. She is under the care of by outpatient physician that is treating her for this. At the time of my interview patient is ambulating without difficulty at baseline without dizziness or other complaint. [facility] Past Medical History Medical History (Updated 05/15/20 @ 17:38 by Anika Eldridge MD) Acid reflux Anxiety Asthma COPD (chronic obstructive pulmonary disease) Mildly decreased DLCO on PFTs December 2018 Diabetes Frequent headaches H/O vaginal delivery x2 11/1971, 07/1970 History of blood transfusion History of one miscarriage 1968 HTN (hypertension) Pneumonia Surgical History Surgical History H/O dilation and curettage 1968 H/O total hysterectomy with removal of both tubes and ovaries 1995 History of bladder surgery 1995 Arma teeth removed 1971 Family History Family History Mother , 79 Family history of cardiovascular disease Breast cancer Hypertension Diabetes mellitus Acute myocardial infarction Thrombocyte disorder Father , 64 Family history of pancreatic cancer Family history of lung cancer High cholesterol Hypertension Diabetes mellitus Sibling Family history of lung cancer Ovarian cancer Diabetes mellitus Grandparent Family history of lung cancer Son , 46 Family history of lung cancer Family history of malignant neoplasm of brain Family history of malignant neoplasm of bone Family history of primary malignant neoplasm of liver Hypertension Diabetes mellitus Social History Social History Smoking status: Former smoker Tobacco type: cigarettes Second hand tobacco smoke exposure: Yes Additional smoking assessment comments: smoked as a teenager Alcohol intake: former Substance use: never Substance use type: does not use Additional occupation/education comments: [employer] Gender identity (if verbalized by the patient): Female Spiritual care concerns: No Same Day Admit/Disch: Med Pre-admit Medications Home Medications Medication Instructions Recorded Confirmed Type aspirin 81 mg tablet,delayed 81 mg PO DAILY 01/19/19 05/14/20 History release montelukast 10 mg tablet 10 mg PO DAILY 30 Days #90 tablet 06/22/19 05/14/20 Rx furosemide 20 mg tablet 20 mg PO QAM PRN #30 tablet 09/26/19 05/14/20 Rx albuterol sulfate 90 mcg/actuation 1 puff INHALATION Q4-6H PRN #18 gm 11/01/19 05/14/20 Rx aerosol inhaler glimepiride 1 mg tablet 1 mg PO BID #180 tablet 11/10/19 05/14/20 Rx omeprazole 20 mg capsule,delayed 20 mg PO DAILY PRN #90 cap 12/16/19 05/14/20 Rx release nifedipine 30 mg tablet,extended 30 mg PO DAILY #90 tablet 01/11/20 05/14/20 Rx release metformin 500 mg tablet 1,000 mg PO BID #360 tablet 02/20/20 05/14/20 Rx losartan 100 See Rx Instructions .ROUTE 03/18/20 05/14/20 Rx mg-hydrochlorothiazide 25 mg tablet .COMPLEX #90 tablet metoprolol tartrate 100 mg tablet 100 mg PO Q12H #180 tablet 03/18/20 05/14/20 Rx rosuvastatin 20 mg tablet 20 mg PO ELVA
[2020-05-15] MEDS: GLIMEPIRIDE 1 MG TABLET PO (18:11)
[2020-05-15] MEDS: metFORMIN HCL 500 MG TABLET 1000 MG PO (18:11)
--- NOTE | 2020-05-15 18:47 | PC.NURSE ---
Pt has been discharged. Pt's IV was removed, tele monitor removed, and discharge paperwork reviewed. Pt and her visitor exhibited good understanding of all discharge instructions. Pt was assisted by staff to the front of the building, in a wheelchair.
== END 2020-05-15 18:47 | disposition home or self-care (01) ==
LOC: ANHED 20:25 → ANH3MEDSUR 05-15 08:31
PROVIDERS: Emergency Medicine; Emergency Medicine Emergency Medical Services; Admitting Provider Internal Medicine; Emergency Provider Emergency Medicine; PCP Family Medicine; Visit Provider Hospitalist
DX: G45.9 Transient cerebral ischemic attack, unspecified (principal); I10 Essential (primary) hypertension; J44.9 Chronic obstructive pulmonary disease, unspecified; E11.9 Type 2 diabetes mellitus without complications; F41.9 Anxiety disorder, unspecified; K21.9 Gastro-esophageal reflux disease without esophagitis; Z87.891 Personal history of nicotine dependence; M17.0 Bilateral primary osteoarthritis of knee; F03.90 Unspecified dementia, unspecified severity, without behavioral disturbance, psychotic disturbance, mood disturbance, and anxiety; E78.5 Hyperlipidemia, unspecified; K58.9 Irritable bowel syndrome, unspecified; D32.9 Benign neoplasm of meninges, unspecified; E66.9 Obesity, unspecified; Z68.38 Body mass index [BMI] 38.0-38.9, adult; Z79.82 Long term (current) use of aspirin; Z79.51 Long term (current) use of inhaled steroids; Z79.84 Long term (current) use of oral hypoglycemic drugs
CPT/HCPCS: 36415; 51701; 70450; 70496; 70498; 70553; 71045; 80048; 81001; 84484; 85025; 85610; 85730; 87077; 87086; 87088; 92610; 93005; 93880; 96360; 96361; 97161; 97165; 99285; A9270; A9577; G0378; J7040; J7120; Q9967

== ENCOUNTER 2020-05-17 10:34 | Outpatient (CLI) | payer MEDICARE, SELFPAY ==
--- NOTE | ~2020-05-17 | US_ITS ---
EXAMINATION: US thyroid EXAM DATE: 05/17/2020 15:35 INDICATION: R22.1 - Localized swelling, mass and lump, neck . TECHNIQUE: Multiple grayscale and Doppler images of the thyroid were obtained (by a technologist who performed the scan) and subsequently reviewed. Individual nodules and recommendations may be reporte d in accordance with TI-RADS system as designated by the 2017 ACR White Paper TI-RADS committee. The re is no prior study for comparison. FINDINGS: The right thyroid lobe measures 4.9 x 2.2 x 2.1 cm, the left measuring 3.7 x 1.8 x 1.7 cm. Diffusely heterogeneous thyroid echogenicity with multiple scattered small thyroid nodules, largest category TR 4 in the right thyroid lobe measuring 1.2 x 1.2 x 1.1 cm. IMPRESSION: Multiple thyroid nodules; consider one-year follow-up for the largest right thyroid lobe nodule. Reviewed, dictated and finalized at location A. IMPRESSION: Multiple thyroid nodules; consider one-year follow-up for the large st right thyroid lobe nodule.
--- NOTE | ~2020-05-17 | XR_ITS ---
EXAMINATION: XR chest 2V DATE: 05/17/2020 15:24 INDICATION: COPD, contact with and suspected exposure to asbestos TECHNIQUE: PA and lateral views of the chest are obtained. COMPARISON: 05/14/2020 FINDINGS: The lungs are free of acute opacities. There is no pleural effusion or pneumothorax. The ca rdiomediastinal silhouette is normal. There is moderate thoracic spondylosis. IMPRESSION: 1. No acute cardiopulmonary abnormality. Reviewed, dictated and finalized at location A.
[2020-05-17 11:48] LABS: Alanine Aminotransferase 16 U/L (4-35); Albumin Level 4.4 g/dL (3.5-5.1); Alkaline Phosphatase 89 U/L (38-126); Aspartate Amino Transferase 26 U/L (14-36); Bilirubin,Total 0.3 mg/dL (0.2-1.3); Cholesterol 120 mg/dL (0-200); HDL Direct 40 mg/dL; Triglycerides 154 mg/dL (<150)
[2020-05-17 11:59] LABS: LDL Cholesterol Direct 55 mg/dL
[2020-05-17 12:34] LABS: MALB Creatinine Ratio 95.3 mg/g (0-30); Microalbumin Urine Random 251.6 mg/L (0-16.7)
== END 2020-05-17 10:35 | disposition home or self-care (01) ==
PROVIDERS: PCP Family Medicine; Visit Provider Nurse Practitioner Family
DX: E11.9 Type 2 diabetes mellitus without complications (principal); R51.9 Headache, unspecified; Z13.29 Encounter for screening for other suspected endocrine disorder; E78.5 Hyperlipidemia, unspecified; E11.65 Type 2 diabetes mellitus with hyperglycemia; R22.1 Localized swelling, mass and lump, neck; R05 Cough; Z77.090 Contact with and (suspected) exposure to asbestos; E04.2 Nontoxic multinodular goiter
CPT/HCPCS: 36415; 71046; 76536; 80061; 80076; 82043; 84443

== ENCOUNTER 2020-06-25 10:06 | Outpatient (CLI) | payer MEDICARE, SELFPAY ==
[2020-06-25 10:55] LABS: Basophils Absolute Auto 0.1 K/mm3 (0.0-0.1); Basophils Percent Auto 0.6 % (0.2-1.2); Eosinophils Absolute Auto 0.2 K/mm3 (0-0.3); Eosinophils Percent Auto 1.5 % (0-4.4); Hematocrit 33.7 % (37.0-47.0); Hemoglobin 10.6 g/dL (12.0-15.0); Immature Granulocyte Absolute 0.04 K/mm3 (0.00-0.031); Immature Granulocyte Percent A 0.4 % (0-0.5); Lymphocytes Absolute Auto 1.89 K/mm3 (0.9-3.2); Lymphocytes Percent Auto 19.4 % (18.3-44.2); Mean Corpuscular HGB Conc 31.5 g/dl (32-36); Mean Corpuscular Volume 92.1 fl (80-100); Mean Platelet Volume 9.3 fl (7.4-10.4); Monocytes Absolute Auto 0.7 K/mm3 (0.1-0.6); Monocytes Percent Auto 7.3 % (2.6-8.5); Neutrophils Absolute Auto 6.9 K/mm3 (1.3-6.7); Neutrophils Percent Auto 70.8 % (45.5-73.1); Platelet Count Result 258 k/mm3 (150-375); Red Blood Count 3.66 M/mm3 (4.2-5.4); Red Cell Distribution Width 13.9 % (11.5-14.5); White Blood Count 9.7 K/mm3 (4.5-10.0)
[2020-06-25 10:57] LABS: Add Urine Microscopic? NO; Appearance Urine Clear (Clear); Bilirubin Urine Negative (Negative); Blood Urine Negative (Negative); Color Urine Yellow (Yellow); Glucose Urine UA Negative (Negative); Ketones Urine Negative (Negative); Leukocyte Esterase Ur Negative LEU/UL (Negative); Nitrate Urine Negative (Negative); Protein Urine Negative (Negative); Specific Grav Ur 1.012 (1.001-1.035); Urobilinogen Urine Negative mg/dL (<2.0)
[2020-06-25 12:42] LABS: Anion Gap 9 mmol/L (8-16); Blood Urea Nitrogen 23 mg/dL (7-17); Calcium 9.6 mg/dL (8.4-10.2); Carbon Dioxide 29 mmol/L (22-30); Chloride 102 mmol/L (98-107); Estimated Glomerular Filt Rate 49; Glucose 130 mg/dL (65-105); Potassium 3.8 mmol/L (3.4-5.0); Sodium 140 mmol/L (137-145)
== END 2020-06-25 10:07 | disposition home or self-care (01) ==
LOC: ANHLAB 10:14
PROVIDERS: PCP Family Medicine; Visit Provider Nurse Practitioner Family
DX: R53.81 Other malaise (principal); R94.4 Abnormal results of kidney function studies; D72.829 Elevated white blood cell count, unspecified
CPT/HCPCS: 36415; 80048; 81003; 85025

== ENCOUNTER 2020-06-27 16:50 | Outpatient (CLI) | payer MEDICARE, SELFPAY ==
--- NOTE | ~2020-06-27 | XR_ITS ---
EXAMINATION: XR lumbar spine 2-3V DATE: 06/27/2020 17:15 INDICATION: Dorsalgia unspecified TECHNIQUE: Anteroposterior and lateral views of the lumbar spine, and cone-down lateral view of the l umbosacral junction were obtained. COMPARISON: None. FINDINGS: There are 3 mm of anterolisthesis of L4 on L5. The vertebral body heights are maintained. T here is moderate loss of intervertebral disc space height at L3-4 and mild loss of intervertebral dis c space height throughout the remainder of the lumbar spine. The vertebral body heights are maintaine d. There is severe facet osteoarthritis of the lower lumbar spine. Small degenerative osteophytes pro ject from the anterior endplates of multiple vertebral bodies. Calcified atherosclerosis is noted. IMPRESSION: 1. Moderate lumbar spondylosis without acute findings. Reviewed, dictated and finalized at location A.
--- NOTE | ~2020-06-27 | XR_ITS ---
EXAMINATION: XR thoracic spine 2V DATE: 06/27/2020 17:15 INDICATION: Thoracic back pain TECHNIQUE: AP, lateral and lateral swimmer's views of the thoracic spine were obtained. COMPARISON: None. FINDINGS: The vertebral body heights and alignment are normal. There is no fracture. There is mild lo ss of intervertebral disc space height at multiple levels of the thoracic spine. Small degenerative o steophytes project from the anterior endplates of multiple vertebral bodies. IMPRESSION: 1. Mild thoracic spondylosis without acute findings. Reviewed, dictated and finalized at location A.
== END 2020-06-27 16:51 | disposition home or self-care (01) ==
PROVIDERS: PCP Family Medicine; Visit Provider Nurse Practitioner Family
DX: M54.9 Dorsalgia, unspecified (principal); M47.814 Spondylosis without myelopathy or radiculopathy, thoracic region; M47.816 Spondylosis without myelopathy or radiculopathy, lumbar region
CPT/HCPCS: 72070; 72100

== ENCOUNTER 2020-07-11 11:26 | Outpatient (CLI) | payer MEDICARE, SELFPAY ==
--- NOTE | ~2020-07-11 | MMUS_ITS ---
EXAMINATION: MM diagnostic salud BI w jazmin, US breast BI limited HISTORY: Follow-up bilateral breast masses TECHNIQUE: Additional 3-D tomosynthesis images of the breasts were performed and synthetic 2-D images were generated. CAD analysis was submitted and interpreted. High resolution limited bilateral breast ultrasound was performed. COMPARISON: Comparison to multiple prior studies sequentially, with oldest reviewed study dated 05/2015. BREAST PARENCHYMAL COMPOSITION: Breast composed of scattered areas of fibroglandular density. FINDINGS: MAMMOGRAPHIC FINDINGS: The breasts are stable. Nodular asymmetries are unchanged from prior examination. No new masses, calc ifications or architectural distortion is seen. ULTRASOUND: Right breast ultrasound: There are multiple cysts of the right breast. In addition at 7:00, 7 cm from the nipple, there is a stable 4 mm oval circumscribed hypoechoic mass, likely a complicated cyst. Left breast ultrasound: At 12:00, 1 cm from the nipple, there is a complicated cyst measuring 7 mm wi thout significant interval change. IMPRESSION: 1. Stable benign-appearing bilateral breast masses. No evidence for malignancy. 2. Routine yearly screening mammogram and regular clinical breast examination are recommended. BI-RADS Category 2: Benign finding(s). Reviewed, dictated and finalized at location A. IMPRESSION: 1. Stable benign-appearing bilateral breast masses. No evidence for malignancy. 2. Routine yearly screening mammogram and regular clinical breast examination a re recommended. BI-RADS Category 2: Benign finding(s).
== END 2020-07-11 11:27 | disposition home or self-care (01) ==
LOC: ANHIMG 11:29
PROVIDERS: PCP Family Medicine; Visit Provider Nurse Practitioner Family
DX: R92.8 Other abnormal and inconclusive findings on diagnostic imaging of breast (principal); Z87.898 Personal history of other specified conditions
CPT/HCPCS: 76642; 77062; 77066; G0279

== ENCOUNTER 2020-08-14 10:05 | Outpatient (CLI) | payer MEDICARE, SELFPAY ==
[2020-08-14 10:27] LABS: Hematocrit 33.5 % (37.0-47.0); Hemoglobin 10.7 g/dL (12.0-15.0); Mean Corpuscular HGB Conc 31.9 g/dl (32-36); Mean Corpuscular Hemoglobin 29.1 pg (26-34); Mean Platelet Volume 9.1 fl (7.4-10.4); Platelet Count Result 263 k/mm3 (150-375); Red Blood Count 3.68 M/mm3 (4.2-5.4); Red Cell Distribution Width 13.6 % (11.5-14.5); White Blood Count 9.6 K/mm3 (4.5-10.0)
[2020-08-14 13:38] LABS: Iron 52 ug/dL (37-170)
[2020-08-14 13:42] LABS: Anion Gap 11 mmol/L (8-16); Blood Urea Nitrogen 24 mg/dL (7-17); Calcium 9.6 mg/dL (8.4-10.2); Carbon Dioxide 28 mmol/L (22-30); Chloride 102 mmol/L (98-107); Estimated Glomerular Filt Rate 55; Glucose 161 mg/dL (65-105); Sodium 141 mmol/L (137-145)
[2020-08-14 13:47] LABS: Percent Iron Saturation 16 % (20-50)
[2020-08-14 14:48] LABS: Folic Acid 6.6 ng/mL (2.76->20)
== END 2020-08-14 10:06 | disposition home or self-care (01) ==
PROVIDERS: PCP Family Medicine; Visit Provider Internal Medicine Hematology & Oncology
DX: D64.9 Anemia, unspecified (principal)
CPT/HCPCS: 36415; 80048; 82607; 82728; 82746; 83540; 83550; 85027

== ENCOUNTER 2020-09-10 10:54 | Outpatient (CLI) | payer MEDICARE, SELFPAY ==
[2020-09-10 11:34] LABS: Creatinine Urine 168.2 mg/dL; Total Protein Urine Random 23 mg/dL; Ur Ttl Prot Creatinine Ratio 0.14 mg/mg (0-0.20)
[2020-09-10 11:37] LABS: Albumin Level 4.1 g/dL (3.5-5.1); Anion Gap 11 mmol/L (8-16); Blood Urea Nitrogen 19 mg/dL (7-17); Calcium 9.5 mg/dL (8.4-10.2); Carbon Dioxide 26 mmol/L (22-30); Chloride 103 mmol/L (98-107); Estimated Glomerular Filt Rate 49; Glucose 142 mg/dL (65-110); Phosphorus 3.3 mg/dL (2.5-4.5); Sodium 140 mmol/L (137-145)
== END 2020-09-10 10:55 | disposition home or self-care (01) ==
LOC: ANHLAB 10:56
PROVIDERS: PCP Family Medicine; Visit Provider Internal Medicine Nephrology
DX: I10 Essential (primary) hypertension (principal)
CPT/HCPCS: 36415; 80069; 82570; 84156

== ENCOUNTER 2020-11-29 10:17 | Outpatient (CLI) | payer MEDICARE, SELFPAY ==
--- NOTE | ~2020-11-29 | US_ITS ---
US abdomen complete EXAMINATION: US Abdomen Complete INDICATION: Left upper quadrant tenderness PROCEDURE: Realtime High Resolution abdomen ultrasound. COMPARISON: No prior studies for comparison FINDINGS: There are gallstones. Common bile duct measures 5 mm. Liver echotexture within normal limits without focal mass. The liver is enlarged measuring 20.5 cm in length. Pancreas within normal limits. Pancreatic tail is obscured by bowel gas. Spleen is unremar keable. Renal echotexture is within normal limits bilaterally without hydronephrosis, contour deformi ng mass or renal stone. Right kidney measures 11.5 cm. Left kidney measures 10.7 cm. There is a 7 mm left renal cyst. Visualized aspects of the aorta and IVC are within normal limits. Portal vein is patent. No sonograph ic Higgins's sign indicated by the technologist. IMPRESSION: 1: Hepatomegaly. 2: Cholelithiasis. Reviewed, dictated and finalized at location B.
== END 2020-11-29 10:18 | disposition home or self-care (01) ==
PROVIDERS: PCP Family Medicine; Visit Provider Nurse Practitioner Family
DX: R10.812 Left upper quadrant abdominal tenderness (principal); R16.0 Hepatomegaly, not elsewhere classified; K80.20 Calculus of gallbladder without cholecystitis without obstruction; N28.1 Cyst of kidney, acquired
CPT/HCPCS: 76700

== ENCOUNTER 2020-11-30 08:12 | Outpatient (CLI) | payer MEDICARE, SELFPAY ==
[2020-11-30 09:13] LABS: Basophils Absolute Auto 0.1 K/mm3 (0.0-0.1); Basophils Percent Auto 0.5 % (0.2-1.2); Eosinophils Absolute Auto 0.2 K/mm3 (0-0.3); Eosinophils Percent Auto 1.6 % (0-4.4); Hemoglobin 10.7 g/dL (12.0-15.0); Immature Granulocyte Absolute 0.02 K/mm3 (0.00-0.031); Immature Granulocyte Percent A 0.2 % (0-0.5); Lymphocytes Percent Auto 21.1 % (18.3-44.2); Mean Corpuscular HGB Conc 31.5 g/dl (32-36); Mean Corpuscular Hemoglobin 29.5 pg (26-34); Mean Corpuscular Volume 93.7 fl (80-100); Mean Platelet Volume 9.4 fl (7.4-10.4); Monocytes Absolute Auto 0.7 K/mm3 (0.1-0.6); Monocytes Percent Auto 7.1 % (2.6-8.5); Neutrophils Absolute Auto 6.6 K/mm3 (1.3-6.7); Neutrophils Percent Auto 69.5 % (45.5-73.1); Platelet Count Result 269 k/mm3 (150-375); Red Blood Count 3.63 M/mm3 (4.2-5.4); Red Cell Distribution Width 13.8 % (11.5-14.5); White Blood Count 9.5 K/mm3 (4.5-10.0)
[2020-11-30 09:31] LABS: Alanine Aminotransferase 17 U/L (4-35); Albumin Level 4.4 g/dL (3.5-5.1); Alkaline Phosphatase 87 U/L (38-126); Anion Gap 9 mmol/L (8-16); Aspartate Amino Transferase 25 U/L (14-36); Bilirubin,Total 0.3 mg/dL (0.2-1.3); Blood Urea Nitrogen 21 mg/dL (7-17); Calcium 9.4 mg/dL (8.4-10.2); Carbon Dioxide 27 mmol/L (22-30); Chloride 103 mmol/L (98-107); Estimated Glomerular Filt Rate 55; Glucose 133 mg/dL (65-110); Sodium 139 mmol/L (137-145)
[2020-11-30 10:03] LABS: Creatinine Urine 131.2 mg/dL
[2020-11-30 10:09] LABS: MALB Creatinine Ratio 47.3 mg/g (0-30); Microalbumin Urine Random 62.1 mg/L (0-16.7)
[2020-11-30 10:11] LABS: Hepatitis B Surface Antigen Negative (Negative)
[2020-11-30 10:17] LABS: HAV RESULT Negative (Negative); Hepatitis B Core IgM Result Negative (Negative)
[2020-11-30 10:28] LABS: Hepatitis C Virus Antibody Negative (Negative)
== END 2020-11-30 08:13 | disposition home or self-care (01) ==
LOC: ANHLAB 08:14
PROVIDERS: PCP Family Medicine; Visit Provider Nurse Practitioner Family
DX: R10.822 Left upper quadrant rebound abdominal tenderness (principal); E11.9 Type 2 diabetes mellitus without complications; R80.9 Proteinuria, unspecified; R16.0 Hepatomegaly, not elsewhere classified
CPT/HCPCS: 36415; 80053; 80074; 82043; 85025

== ENCOUNTER 2020-12-09 08:59 | Outpatient (CLI) | payer MEDICARE, SELFPAY ==
[2020-12-09 09:41] LABS: Basophils Absolute Auto 0.1 K/mm3 (0.0-0.1); Basophils Percent Auto 0.6 % (0.2-1.2); Eosinophils Absolute Auto 0.2 K/mm3 (0-0.3); Eosinophils Percent Auto 1.8 % (0-4.4); Hematocrit 32.8 % (37.0-47.0); Hemoglobin 10.3 g/dL (12.0-15.0); Immature Granulocyte Absolute 0.03 K/mm3 (0.00-0.031); Immature Granulocyte Percent A 0.3 % (0-0.5); Lymphocytes Absolute Auto 2.38 K/mm3 (0.9-3.2); Mean Corpuscular HGB Conc 31.4 g/dl (32-36); Mean Corpuscular Hemoglobin 29.8 pg (26-34); Mean Corpuscular Volume 94.8 fl (80-100); Mean Platelet Volume 9.3 fl (7.4-10.4); Monocytes Absolute Auto 0.8 K/mm3 (0.1-0.6); Monocytes Percent Auto 8.6 % (2.6-8.5); Neutrophils Absolute Auto 6.1 K/mm3 (1.3-6.7); Neutrophils Percent Auto 63.7 % (45.5-73.1); Platelet Count Result 267 k/mm3 (150-375); Red Blood Count 3.46 M/mm3 (4.2-5.4); Red Cell Distribution Width 14.1 % (11.5-14.5); White Blood Count 9.5 K/mm3 (4.5-10.0)
== END 2020-12-09 09:00 | disposition home or self-care (01) ==
LOC: ANHLAB 09:03
PROVIDERS: PCP Family Medicine; Visit Provider Family Medicine
DX: R25.2 Cramp and spasm (principal)
CPT/HCPCS: 36415; 85025

== ENCOUNTER 2021-02-05 09:10 | Outpatient (CLI) | payer MEDICARE, SELFPAY ==
[2021-02-05 09:37] LABS: Basophils Absolute Auto 0.1 K/mm3 (0.0-0.1); Basophils Percent Auto 0.6 % (0.2-1.2); Eosinophils Absolute Auto 0.2 K/mm3 (0-0.3); Eosinophils Percent Auto 1.7 % (0-4.4); Hematocrit 31.5 % (37.0-47.0); Hemoglobin 9.8 g/dL (12.0-15.0); Immature Granulocyte Absolute 0.02 K/mm3 (0.00-0.031); Immature Granulocyte Percent A 0.2 % (0-0.5); Lymphocytes Absolute Auto 2.14 K/mm3 (0.9-3.2); Lymphocytes Percent Auto 23.1 % (18.3-44.2); Mean Corpuscular HGB Conc 31.1 g/dl (32-36); Mean Corpuscular Hemoglobin 28.9 pg (26-34); Mean Corpuscular Volume 92.9 fl (80-100); Mean Platelet Volume 8.8 fl (7.4-10.4); Monocytes Absolute Auto 0.7 K/mm3 (0.1-0.6); Monocytes Percent Auto 7.7 % (2.6-8.5); Neutrophils Absolute Auto 6.2 K/mm3 (1.3-6.7); Neutrophils Percent Auto 66.7 % (45.5-73.1); Platelet Count Result 257 k/mm3 (150-375); Red Blood Count 3.39 M/mm3 (4.2-5.4); White Blood Count 9.3 K/mm3 (4.5-10.0)
[2021-02-05 11:32] LABS: Iron 67 ug/dL (37-170)
[2021-02-05 11:38] LABS: Alanine Aminotransferase 18 U/L (4-35); Albumin Level 4.2 g/dL (3.5-5.1); Alkaline Phosphatase 87 U/L (38-126); Anion Gap 7 mmol/L (8-16); Aspartate Amino Transferase 24 U/L (14-36); Bilirubin,Total 0.3 mg/dL (0.2-1.3); Blood Urea Nitrogen 16 mg/dL (7-17); Calcium 9.4 mg/dL (8.4-10.2); Carbon Dioxide 29 mmol/L (22-30); Chloride 103 mmol/L (98-107); Estimated Glomerular Filt Rate 55; Glucose 148 mg/dL (65-110); Potassium 3.8 mmol/L (3.4-5.0); Sodium 139 mmol/L (137-145)
[2021-02-05 11:45] LABS: Percent Iron Saturation 21 % (20-50)
== END 2021-02-05 09:11 | disposition home or self-care (01) ==
PROVIDERS: PCP Family Medicine; Visit Provider Internal Medicine Hematology & Oncology
DX: D64.9 Anemia, unspecified (principal)
CPT/HCPCS: 36415; 80053; 82607; 82728; 82746; 83540; 83550; 85025

== ENCOUNTER 2021-05-12 09:49 | Outpatient (CLI) | payer MEDICARE, SELFPAY ==
[2021-05-12 10:09] LABS: Hematocrit 35.8 % (37.0-47.0); Hemoglobin 10.8 g/dL (12.0-15.0); Mean Corpuscular HGB Conc 30.2 g/dl (32-36); Mean Corpuscular Hemoglobin 28.8 pg (26-34); Mean Corpuscular Volume 95.5 fl (80-100); Mean Platelet Volume 8.9 fl (7.4-10.4); Platelet Count Result 260 k/mm3 (150-375); Red Blood Count 3.75 M/mm3 (4.2-5.4); Red Cell Distribution Width 14.5 % (11.5-14.5)
[2021-05-12 15:35] LABS: Iron 63 ug/dL (37-170)
[2021-05-12 15:50] LABS: Percent Iron Saturation 19 % (20-50)
[2021-05-12 16:47] LABS: Folic Acid 8.7 ng/mL (2.76->20); Vitamin B12 > 1000.0 pg/mL (239-931)
== END 2021-05-12 09:50 | disposition home or self-care (01) ==
LOC: ANHLAB 09:51
PROVIDERS: PCP Family Medicine; Visit Provider Internal Medicine Hematology & Oncology
DX: D64.9 Anemia, unspecified (principal)
CPT/HCPCS: 36415; 82607; 82728; 82746; 83540; 83550; 85027

== ENCOUNTER 2021-05-20 08:32 | Outpatient (CLI) | payer MEDICARE, SELFPAY ==
--- NOTE | ~2021-05-20 | US_ITS ---
EXAMINATION: US thyroid DATE: 05/20/2021 12:55 INDICATION: Nontoxic single thyroid nodule. TECHNIQUE: Multiple ultrasound images of the thyroid were obtained. COMPARISON: Thyroid ultrasound 05/17/2020 FINDINGS: The right thyroid lobe measures 5.2 x 2.1 x 2.3 cm. The left thyroid lobe measures 4.0 x 1.6 x 1.4 c m. In the right thyroid lobe, there is a 13 mm solid, very hypoechoic, sjyme-jfea-fizp nodule with l obulated margin without echogenic foci (TI-RADS TR5). There are multiple subcentimeter nodules in the thyroid. IMPRESSION: 1. Multinodular goiter. Ultrasound-guided fine-needle aspiration of the 13 mm right thyroid nodule is recommended. Reviewed, dictated and finalized at location A. IMPRESSION: 1. Multinodular goiter. Ultrasound-guided fine-needle aspiration of the 13 mm r ight thyroid nodule is recommended.
--- NOTE | ~2021-05-20 | XR_ITS ---
EXAMINATION:XR_CERV2-3V_CR DATE: 05/20/2021 08:55 INDICATION: Neck pain TECHNIQUE: AP, lateral, lateral swimmers and odontoid views of the cervical spine are provided. COMPARISON: None FINDINGS: Alignment is normal. The odontoid is intact. No fracture is identified. The vertebral body heights are maintained. There is mild loss of intervertebral disc space height at C5-6 and C6-7. The prevertebral soft tissues are normal. There is moderate to severe multilevel facet and uncovertebral joint osteoarthritis. IMPRESSION: 1. Moderate cervical spondylosis. Reviewed, dictated and finalized at location A.
== END 2021-05-20 08:33 | disposition home or self-care (01) ==
PROVIDERS: PCP Family Medicine; Visit Provider Nurse Practitioner Family
DX: E04.1 Nontoxic single thyroid nodule (principal); M79.9 Soft tissue disorder, unspecified; M54.2 Cervicalgia; E04.2 Nontoxic multinodular goiter; M47.812 Spondylosis without myelopathy or radiculopathy, cervical region
CPT/HCPCS: 72040; 76536

== ENCOUNTER 2021-06-06 13:02 | Outpatient (CLI) | payer MEDICARE, SELFPAY ==
--- NOTE | ~2021-06-06 | US_ITS ---
EXAMINATION: US FNA w image guidance DATE: 06/06/2021 14:41 INDICATION: Nontoxic multinodular goiter. TECHNIQUE: The procedure and its benefits and risks were discussed with the patient. Risks specifically discusse d included bleeding. The patient verbalized understanding of the risks and agreed to proceed. The nec k was prepped and draped in the usual sterile manner. 1% lidocaine was used for local anesthesia. 6 passes were made with a 25G needle into the lesion under ultrasound guidance. There were no immedia te complications. FINDINGS: Grayscale ultrasound images demonstrate needles advanced into a 13 mm nodule in right thyroid lobe fo r biopsy. IMPRESSION: 1. Ultrasound-guided fine needle aspiration of a right thyroid nodule. Reviewed, dictated and finalized at location A.
== END 2021-06-06 13:03 | disposition home or self-care (01) ==
PROVIDERS: PCP Family Medicine; Visit Provider Nurse Practitioner Family
DX: E04.2 Nontoxic multinodular goiter (principal)
CPT/HCPCS: 10005; 88173; 88305

== ENCOUNTER 2021-08-08 08:57 | Outpatient (CLI) | payer MEDICARE, SELFPAY ==
--- NOTE | ~2021-08-08 | MM_ITS ---
EXAMINATION: MM screening [facility] BI w jazmin HISTORY: Screening TECHNIQUE: Craniocaudal and mediolateral oblique 3-D tomosynthesis images were obtained and synthetic 2-D images were generated. CAD analysis was submitted and interpreted. COMPARISON: Comparison to multiple prior studies sequentially, with oldest reviewed study dated 05/2015. BREAST PARENCHYMAL COMPOSITION: There are scattered areas of fibroglandular density. FINDINGS: There is no evidence of suspicious mass, calcification, or architectural distortion to sugg est malignancy in either breast. There has been no suspicious interval change. IMPRESSION: 1. No mammographic evidence of malignancy. 2. Recommend routine screening mammography in one year. BI-RADS Category 1: Negative Reviewed, dictated and finalized at location A.
== END 2021-08-08 08:58 | disposition home or self-care (01) ==
LOC: ANHIMG 08:58
PROVIDERS: PCP Family Medicine; Visit Provider Family Medicine
DX: Z12.31 Encounter for screening mammogram for malignant neoplasm of breast (principal)
CPT/HCPCS: 77063; 77067

== ENCOUNTER 2021-08-20 01:04 | Day surgery (SDC) | payer MEDICARE, SELFPAY ==
[2021-07-29 13:40] VITALS: BMI 36.8
--- NOTE | 2021-08-19 16:10 | WPDANESEPPF ---
Anes - Initial Pre Proc Eval Procedure: Operation Date: 08/20/21 10:00 Proposed Procedures p Esophagogastroduodenoscopy & Colonoscopy - Dirk Oro MD Date/Time: 08/19/21 16:10 Surgeon: Dirk Oro MD Pre Op Diagnosis: dysphagia, diarrhea Patient Data Age: 70 Gender: F Height: 1.63 m Weight: 97.5 kg Allergies Allergy/AdvReac Type Severity Reaction Status Date / Time No Known Allergies Allergy Verified 08/20/21 08:59 Home Medications Medication Instructions Recorded Confirmed Type furosemide 20 mg tablet 20 mg PO QAM PRN edema #30 tabs 09/26/19 08/20/21 Rx albuterol sulfate 90 mcg/actuation 1 puff inhalation Q4-6H PRN 11/01/19 08/20/21 Rx aerosol inhaler (ProAir HFA) shortness of breath or wheezing #18 grams aspirin 162.5 mg capsule,extended 162.5 mg PO DAILY 30 days #30 caps 05/15/20 08/20/21 Rx release 24 hr Symbicort 160 mcg-4.5 2 puff inhalation Q12H #10.2 grams 12/04/20 08/20/21 Rx mcg/actuation HFA aerosol inhaler (budesonide-formoterol) albuterol sulfate 2.5 mg/3 mL 2.5 mg (3 mL) inhalation QID PRN 12/09/20 08/20/21 Rx (0.083 %) solution for nebulization shortness of breath or wheezing #360 mL alprazolam 0.25 mg tablet 0.25 mg PO TID #90 tabs 02/05/21 08/20/21 Rx carvedilol 6.25 mg tablet 6.25 mg PO Q12H #180 tabs 02/05/21 08/20/21 Rx glimepiride 1 mg tablet 1 mg PO BID #180 tabs 02/05/21 08/20/21 Rx metformin 500 mg tablet 1,000 mg PO BID #360 tabs 02/05/21 08/20/21 Rx montelukast 10 mg tablet 10 mg PO DAILY 1 month #90 tabs 02/05/21 08/20/21 Rx omeprazole 20 mg capsule,delayed 20 mg PO DAILY PRN GERD #90 caps 02/05/21 08/20/21 Rx release rosuvastatin 20 mg tablet 20 mg PO DAILY #90 tabs 02/05/21 08/20/21 Rx losartan 100 See Rx Instructions .Route 04/07/21 08/20/21 Rx mg-hydrochlorothiazide 25 mg tablet .COMPLEX #90 tabs benzonatate 200 mg capsule 200 mg PO TID PRN cough #90 caps 05/02/21 08/20/21 Rx eluxadoline 75 mg tablet (Viberzi) 75 mg PO BID 05/02/21 08/20/21 History vit C 250 mg-vit E 90 mg-zinc 40 1 tablet PO BID 05/02/21 08/20/21 History mg-copper 1 [id number]-vfoykr capsule (PreserVision AREDS-2) cyanocobalamin (vitamin B-12) 1,000 mcg PO DAILY 06/25/21 08/20/21 History 1,000 mcg capsule ferrous sulfate 325 mg (65 mg 325 mg PO DAILY 06/25/21 08/20/21 History iron) tablet,delayed release meloxicam 7.5 mg tablet (Mobic) 15 mg PO DAILY 06/25/21 08/20/21 History zolpidem 5 mg tablet 5 mg PO QHS PRN Insomnia 06/25/21 08/20/21 History nifedipine 30 mg tablet,extended 30 mg PO DAILY #90 tabs 07/16/21 08/20/21 Rx release tizanidine 2 mg tablet 2 mg PO TID PRN muscle spasticity 08/13/21 08/20/21 Rx #30 tabs mirabegron 25 mg tablet,extended 25 mg PO DAILY OAB #30 tabs 08/14/21 08/20/21 Rx release 24 hr (Myrbetriq) Patient hx anesthesia problems: none Family hx anesthesia problems: none Results Review: All pre-operative results and documents have been reviewed as part of the pre-operative evaluation. [facility] Past Medical History Medical History (Updated 08/19/21 @ 16:12 by Darron Dubon MD) Acid reflux Anxiety Arthritis of left knee Asthma Asthma BMI 36.0-36.9,adult BMI over 35 Bradycardia Cataract Cholelithiasis COPD (chronic obstructive pulmonary disease) Mildly decreased DLCO on PFTs December 2018 Decreased GFR Depression with anxiety Diabetes Diabetes type 2, controlled Essential hypertension Frequent headaches Frequent loose stools H/O vaginal delivery x2 11/1971, 07/1970 History of blood transfusion History of one miscarriage 1968 HTN (hypertension) Hyperlipidemia Hypertension Meningioma Obesity (BMI 30-39.9) Pneumonia SOB (shortness of breath) Swelling of lower extremity Transient ischemic attack Uncontrolled hypertension Surgical History Surgical History H/O dilation and curettage 1968 H/O total hysterectomy
[2021-08-20 08:58] LABS: Glucose Point of Care 124 mg/dl (65-105)
[2021-08-20 09:00] VITALS: BP 188/94; PULSE 63; RESP 18; TEMP 36.4; O2SAT 100
[2021-08-20] MEDS: LACTATED RINGERS 1,000 ML 150 ML IV CONT (09:10)
--- NOTE | 2021-08-20 09:46 | PM.HPGS ---
History of Present Illness History of Present Illness Consent: Risks, benefits, and alternatives have been discussed and questions answered. Patient agrees to proceed with procedure. Chief complaint: dysphagia, diarrhea Narrative: Susan Pradhan is a 70 year old female with dysphagia to solids, also gerd on omeprazole. IBS-D using viberzi with some relief. Review of Systems Constitutional: Constitutional: Denies headache(s) and Denies weakness Eyes: Eyes: Denies blurry vision ENT: Reports Normal hearing present, Denies headache(s) and Denies neck pain Cardiovascular: Cardiovascular: Denies chest pain and Denies dyspnea Respiratory: Respiratory: Denies dyspnea Gastrointestinal: Gastrointestinal: Reports no additional gastrointestinal complaints Genitourinary: Genitourinary: Denies dysuria Musculoskeletal: Musculoskeletal: Denies neck pain Integumentary/Breasts: Skin/Breast: Denies dry skin Neurologic: Reports Normal hearing present, Denies headache(s) and Denies weakness Psychiatric: Psychiatric: Denies anxiety Endocrine: Endocrine: Denies change in body appearance Hematologic/Lymphatic: Hematologic/Lymphatic: Denies easy bleeding Allergic/Immunologic: Allergic/Immunologic: Denies urticaria PMF Past Medical History Medical History (Updated 08/20/21 @ 09:48 by Dirk Oro MD) Acid reflux Anxiety Arthritis of left knee Asthma Asthma BMI 36.0-36.9,adult BMI over 35 Bradycardia Cataract Cholelithiasis COPD (chronic obstructive pulmonary disease) Mildly decreased DLCO on PFTs December 2018 Decreased GFR Depression with anxiety Diabetes Diabetes type 2, controlled Dysphagia Essential hypertension Frequent headaches Frequent loose stools H/O vaginal delivery x2 11/1971, 07/1970 History of blood transfusion History of one miscarriage 1968 HTN (hypertension) Hyperlipidemia Hypertension Meningioma Obesity (BMI 30-39.9) Pneumonia SOB (shortness of breath) Swelling of lower extremity Transient ischemic attack Uncontrolled hypertension Surgical History Surgical History H/O dilation and curettage 1968 H/O total hysterectomy with removal of both tubes and ovaries 1995 History of bladder surgery 1995 Sargeant teeth removed 1971 Family History Family History Mother , 79 Family history of cardiovascular disease Breast cancer Hypertension Diabetes mellitus Acute myocardial infarction Thrombocyte disorder Father , 64 Family history of pancreatic cancer Family history of lung cancer High cholesterol Hypertension Diabetes mellitus Sibling Family history of lung cancer Ovarian cancer Diabetes mellitus Grandparent Family history of lung cancer Son , 46 Family history of lung cancer Family history of malignant neoplasm of brain Family history of malignant neoplasm of bone Family history of primary malignant neoplasm of liver Hypertension Diabetes mellitus Social History Social History Years smoked: 1 Smoking status: Former smoker Tobacco type: cigarettes Second hand tobacco smoke exposure: Yes Additional smoking assessment comments: only smoke for a short time as a teen Alcohol intake: never Substance use: never Substance use type: does not use Living arrangements: with family Additional living arrangements comments: son and daughter in law Additional occupation/education comments: [employer] Gender identity (if verbalized by the patient): Female Spiritual care concerns: No Meds Home Medications and Allergies Home Medications Medication Instructions Recorded Confirmed Type furosemide 20 mg tablet 20 mg PO QAM PRN edema #30 tabs 09/26/19 08/20/21 Rx albuterol sulfate 90 mcg/actuation 1 p
--- NOTE | 2021-08-20 10:10 | SUR.OPER ---
EGD ended at 1004. Colonoscopy started at 1009.
[2021-08-20 10:25] VITALS: BP 129/64; PULSE 51; RESP 18; O2SAT 97
[2021-08-20 10:35] VITALS: BP 144/71; PULSE 52; RESP 17; O2SAT 99
[2021-08-20 10:45] VITALS: BP 192/93; PULSE 59; RESP 19; O2SAT 95
--- NOTE | 2021-08-20 11:01 | SUR.PHASEII ---
Pt blood pressure 192/93. Pt states she did not take her blood pressure medications this morning. Dr. Dubon (Anesthesiologist) notified. Orders received to have pt to take blood pressure medications when she gets home. Pt states understanding.
== END 2021-08-20 11:09 | disposition home or self-care (01) ==
PROVIDERS: PCP Family Medicine; Visit Provider Internal Medicine Gastroenterology
PROC: 0DJ08ZZ Inspection of Upper Intestinal Tract, Via Natural or Artificial Opening Endoscopic (ICD-10-PCS; CPT 43235; principal; 2021-08-20 10:00)
DX: Z12.11 Encounter for screening for malignant neoplasm of colon (principal); K58.0 Irritable bowel syndrome with diarrhea; D12.0 Benign neoplasm of cecum; K62.1 Rectal polyp; K57.30 Diverticulosis of large intestine without perforation or abscess without bleeding; K64.8 Other hemorrhoids; K21.9 Gastro-esophageal reflux disease without esophagitis; K29.70 Gastritis, unspecified, without bleeding; R13.10 Dysphagia, unspecified; I10 Essential (primary) hypertension; E78.5 Hyperlipidemia, unspecified; E11.9 Type 2 diabetes mellitus without complications; J44.9 Chronic obstructive pulmonary disease, unspecified; F41.8 Other specified anxiety disorders; Z86.73 Personal history of transient ischemic attack (TIA), and cerebral infarction without residual deficits; E66.9 Obesity, unspecified; Z68.36 Body mass index [BMI] 36.0-36.9, adult; Z79.51 Long term (current) use of inhaled steroids; Z79.82 Long term (current) use of aspirin; Z79.84 Long term (current) use of oral hypoglycemic drugs
CPT/HCPCS: 45385; 45380; 43239; 43450; 82948; 88305; J2704; J7120

== ENCOUNTER 2021-11-13 09:24 | Outpatient (CLI) | payer MEDICARE, SELFPAY ==
[2021-11-13 09:56] LABS: Basophils Absolute Auto 0.1 K/mm3 (0.0-0.1); Basophils Percent Auto 0.6 % (0.2-1.2); Eosinophils Absolute Auto 0.2 K/mm3 (0-0.3); Eosinophils Percent Auto 1.5 % (0-4.4); Hematocrit 35.4 % (37.0-47.0); Hemoglobin 10.9 g/dL (12.0-15.0); Immature Granulocyte Absolute 0.03 K/mm3 (0.00-0.031); Immature Granulocyte Percent A 0.3 % (0-0.5); Lymphocytes Absolute Auto 2.09 K/mm3 (0.9-3.2); Lymphocytes Percent Auto 21.3 % (18.3-44.2); Mean Corpuscular HGB Conc 30.8 g/dl (32-36); Mean Corpuscular Hemoglobin 28.6 pg (26-34); Mean Corpuscular Volume 92.9 fl (80-100); Mean Platelet Volume 8.7 fl (7.4-10.4); Monocytes Absolute Auto 0.8 K/mm3 (0.1-0.6); Monocytes Percent Auto 7.7 % (2.6-8.5); Neutrophils Absolute Auto 6.7 K/mm3 (1.3-6.7); Neutrophils Percent Auto 68.6 % (45.5-73.1); Platelet Count Result 277 k/mm3 (150-375); Red Blood Count 3.81 M/mm3 (4.2-5.4); Red Cell Distribution Width 13.8 % (11.5-14.5); White Blood Count 9.8 K/mm3 (4.5-10.0)
[2021-11-13 12:15] LABS: Iron 54 ug/dL (37-170)
[2021-11-13 12:17] LABS: Anion Gap 11 mmol/L (8-16); Blood Urea Nitrogen 16 mg/dL (7-17); Carbon Dioxide 29 mmol/L (22-30); Chloride 102 mmol/L (98-107); Estimated Glomerular Filt Rate > 60; Glucose 141 mg/dL (65-110); Potassium 3.6 mmol/L (3.4-5.0); Sodium 142 mmol/L (137-145)
[2021-11-13 12:31] LABS: Percent Iron Saturation 17 % (20-50)
[2021-11-13 13:29] LABS: Folic Acid 6.9 ng/mL (2.76->20)
== END 2021-11-13 09:25 | disposition home or self-care (01) ==
LOC: ANHLAB 09:26
PROVIDERS: PCP Family Medicine; Visit Provider Internal Medicine Hematology & Oncology
DX: D64.9 Anemia, unspecified (principal)
CPT/HCPCS: 36415; 80048; 82607; 82728; 82746; 83540; 83550; 85025

== ENCOUNTER 2021-11-19 10:00 | Outpatient (CLI) | payer MEDICARE, SELFPAY ==
[2021-11-19 11:03] LABS: Creatinine Urine 206.9 mg/dL
[2021-11-19 11:07] LABS: MALB Creatinine Ratio 70.8 mg/g (0-30); Microalbumin Urine Random 146.4 mg/L (0-16.7)
[2021-11-19 14:02] LABS: Free T4 Free Thyroxine 1.02 ng/mL (0.78-2.19)
== END 2021-11-19 10:01 | disposition home or self-care (01) ==
LOC: ANHLAB 10:02
PROVIDERS: PCP Family Medicine; Visit Provider Nurse Practitioner Family
DX: E11.8 Type 2 diabetes mellitus with unspecified complications (principal)
CPT/HCPCS: 36415; 82043; 84439; 84443

== ENCOUNTER 2022-04-08 09:06 | Outpatient (CLI) | payer MEDICARE, SELFPAY ==
[2022-04-08 09:26] LABS: Basophils Absolute Auto 0.1 K/mm3 (0.0-0.1); Basophils Percent Auto 0.6 % (0.2-1.2); Eosinophils Absolute Auto 0.1 K/mm3 (0-0.3); Eosinophils Percent Auto 1.3 % (0-4.4); Hematocrit 36.3 % (37.0-47.0); Hemoglobin 11.4 g/dL (12.0-15.0); Immature Granulocyte Absolute 0.03 K/mm3 (0.00-0.031); Immature Granulocyte Percent A 0.3 % (0-0.5); Lymphocytes Absolute Auto 2.29 K/mm3 (0.9-3.2); Lymphocytes Percent Auto 22.4 % (18.3-44.2); Mean Corpuscular HGB Conc 31.4 g/dl (32-36); Mean Corpuscular Hemoglobin 29.2 pg (26-34); Mean Corpuscular Volume 92.8 fl (80-100); Mean Platelet Volume 8.9 fl (7.4-10.4); Monocytes Absolute Auto 0.9 K/mm3 (0.1-0.6); Monocytes Percent Auto 8.4 % (2.6-8.5); Neutrophils Absolute Auto 6.9 K/mm3 (1.3-6.7); Platelet Count Result 297 k/mm3 (150-375); Red Blood Count 3.91 M/mm3 (4.2-5.4); White Blood Count 10.2 K/mm3 (4.5-10.0)
== END 2022-04-08 09:07 | disposition home or self-care (01) ==
LOC: ANHLAB 09:09
PROVIDERS: PCP Family Medicine; Visit Provider Nurse Practitioner Family
DX: L53.9 Erythematous condition, unspecified (principal); R20.8 Other disturbances of skin sensation
CPT/HCPCS: 36415; 85025

== ENCOUNTER 2022-05-15 10:49 | Outpatient (CLI) | payer MEDICARE, SELFPAY ==
[2022-05-15 11:04] LABS: Basophils Absolute Auto 0.1 K/mm3 (0.0-0.1); Basophils Percent Auto 0.5 % (0.2-1.2); Eosinophils Absolute Auto 0.1 K/mm3 (0-0.3); Hemoglobin 11.5 g/dL (12.0-15.0); Immature Granulocyte Absolute 0.03 K/mm3 (0.00-0.031); Immature Granulocyte Percent A 0.3 % (0-0.5); Lymphocytes Absolute Auto 2.12 K/mm3 (0.9-3.2); Lymphocytes Percent Auto 19.9 % (18.3-44.2); Mean Corpuscular HGB Conc 31.9 g/dl (32-36); Mean Corpuscular Hemoglobin 29.6 pg (26-34); Mean Corpuscular Volume 92.5 fl (80-100); Mean Platelet Volume 8.8 fl (7.4-10.4); Monocytes Absolute Auto 0.8 K/mm3 (0.1-0.6); Monocytes Percent Auto 7.7 % (2.6-8.5); Neutrophils Absolute Auto 7.5 K/mm3 (1.3-6.7); Neutrophils Percent Auto 70.6 % (45.5-73.1); Platelet Count Result 299 k/mm3 (150-375); Red Blood Count 3.89 M/mm3 (4.2-5.4); Red Cell Distribution Width 14.2 % (11.5-14.5); White Blood Count 10.6 K/mm3 (4.5-10.0)
[2022-05-15 15:51] LABS: Anion Gap 9 mmol/L (8-16); Blood Urea Nitrogen 25 mg/dL (7-17); Calcium 8.9 mg/dL (8.4-10.2); Carbon Dioxide 31 mmol/L (22-30); Chloride 101 mmol/L (98-107); Estimated Glomerular Filt Rate > 60; Glucose 146 mg/dL (65-110); Potassium 3.9 mmol/L (3.4-5.0); Sodium 141 mmol/L (137-145)
[2022-05-15 15:54] LABS: Iron 51 ug/dL (37-170)
[2022-05-15 16:21] LABS: Percent Iron Saturation 16 % (20-50)
[2022-05-15 17:04] LABS: Folic Acid 8.6 ng/mL (2.76->20)
== END 2022-05-15 10:50 | disposition home or self-care (01) ==
PROVIDERS: PCP Family Medicine; Visit Provider Internal Medicine Hematology & Oncology
DX: D64.9 Anemia, unspecified (principal)
CPT/HCPCS: 36415; 80048; 82607; 82728; 82746; 83540; 83550; 85025

== ENCOUNTER 2022-07-16 11:47 | Outpatient (CLI) | payer MEDICARE, SELFPAY ==
--- NOTE | ~2022-07-16 | US_ITS ---
EXAMINATION: US venous doppler LE RT DATE: 07/16/2022 12:38 INDICATION: Right lower limb swelling. Other specified soft tissue disorders. TECHNIQUE: Grayscale ultrasound images without and with compression and Doppler ultrasound images of the right lower extremity veins were obtained. COMPARISON: None. FINDINGS: The visualized portions of right common femoral vein, profunda (deep) femoral vein, femoral vein, pop liteal vein, peroneal veins, posterior tibial veins, and greater saphenous vein outflow are patent. T here is an 8.5 x 2.7 x 7.6 cm hypoechoic and anechoic mass lateral to the right hip. IMPRESSION: 1. No deep venous thrombosis. 2. 8.5 cm mass lateral to the right hip, likely a hematoma. Reviewed, dictated and finalized at location A.
--- NOTE | ~2022-07-16 | US_ITS ---
EXAMINATION: US venous doppler UE RT DATE: 07/16/2022 12:38 INDICATION: Right upper limb swelling. Other specified soft tissue disorders. TECHNIQUE: Grayscale ultrasound images without and with compression and Doppler ultrasound images of the right upper extremity veins were obtained. COMPARISON: None. FINDINGS: The visualized portions of the right internal jugular vein, subclavian vein, axillary vein, brachial veins, basilic vein, cephalic vein, radial vein, and ulnar vein are patent. IMPRESSION: 1. No deep venous thrombosis. Reviewed, dictated and finalized at location A.
== END 2022-07-16 11:48 | disposition home or self-care (01) ==
PROVIDERS: PCP Family Medicine; Visit Provider Nurse Practitioner Family
DX: M79.89 Other specified soft tissue disorders (principal); S30.0XXA Contusion of lower back and pelvis, initial encounter; S40.029A Contusion of unspecified upper arm, initial encounter; X58.XXXA Exposure to other specified factors, initial encounter
CPT/HCPCS: 93971

== ENCOUNTER 2022-10-21 08:16 | Outpatient (CLI) | payer MEDICARE, SELFPAY ==
--- NOTE | ~2022-10-21 | MM_ITS ---
EXAMINATION: MM screening salud BI w jazmin HISTORY: Screening mammogram, family history of breast cancer in her mother. TECHNIQUE: Craniocaudal and mediolateral oblique 3-D tomosynthesis images were obtained and synthetic 2-D images were generated. CAD analysis was submitted and interpreted. COMPARISON: 722, 07/28/2020, 05/08/2019 BREAST PARENCHYMAL COMPOSITION:There are scattered areas of fibroglandular density. FINDINGS: No suspicious mass, calcification, or architectural distortion are identified in either ashli ast to suggest malignancy. There has been no suspicious interval change. IMPRESSION: No mammographic evidence of malignancy. Recommend routine screening mammography in one year. BI-RADS Category 1: Negative Reviewed, dictated and finalized at location .
== END 2022-10-21 08:17 | disposition home or self-care (01) ==
LOC: ANHIMG 08:19
PROVIDERS: PCP Family Medicine; Visit Provider Family Medicine
DX: Z12.31 Encounter for screening mammogram for malignant neoplasm of breast (principal)
CPT/HCPCS: 77063; 77067

== ENCOUNTER 2022-10-31 20:00 | Observation (INO) | payer MEDICARE, SELFPAY ==
--- NOTE | ~2022-10-31 | CT_ITS ---
EXAMINATION: CT brain wo con DATE: 10/31/2022 21:27 INDICATION: transient alteration in awareness . TECHNIQUE: Computed tomography (CT) of the head was performed without intravenous contrast. The mA wa s adjusted according to patient size. Iterative reconstruction technique was employed. The dose-lengt h product was 605.33 mGy-cm. COMPARISON: 05/14/2020; MR brain 05/15/2020. FINDINGS: No acute intracranial hemorrhage or extra-axial fluid collection. No hydrocephalus, mass, or herniation. No acute ischemic infarct. Unremarkable dural venous sinus attenuation. No acute osseous abnormality. The aerated spaces are clear. Mild atrophy and chronic white matter change. Atherosclerotic intracranial calcification. Bilateral l ens replacements. Stable right tentorial meningioma extending into the posterior fossa. IMPRESSION: No acute intracranial process. Reviewed, dictated and finalized at location K.
--- NOTE | ~2022-10-31 | MR_ITS ---
EXAMINATION: MR brain/brain stem wo con DATE: 11/01/2022 08:48 INDICATION: TIA TECHNIQUE: Magnetic resonance imaging (MRI) of the brain and brainstem was performed without intraven ous contrast. Sequences included sagittal and axial T1-weighted SE, axial diffusion-weighted FS SE, a xial T2*-weighted GRE, axial T2-weighted FLAIR Propeller, and axial T2-weighted Propeller. Apparent d iffusion coefficient (ADC) maps were created. COMPARISON: MRI dated 05/15/2020. FINDINGS: There is a stable extra-axial mass undersurface right cerebellar tentorium, consistent with meningioma, although not as well-visualized without contrast. No evidence for acute infarction or he morrhage. There are scattered mild periventricular and subcortical white matter changes, most likely related to small vessel ischemic disease (microangiopathy). No ventriculomegaly or midline shift. Par anasal sinuses and mastoids are pneumatized. Orbits are symmetric without disconjugate gaze. Paranasa l sinuses are unremarkable. IMPRESSION: 1. No acute intracranial abnormality. 2: No significant change allowing for differences of technique to extra-axial mass undersurface right cerebellar tentorium, most likely benign meningioma. Reviewed, dictated and finalized at location A. IMPRESSION: 1. No acute intracranial abnormality. 2: No significant change allowing for differences of technique to extra-axial m ass undersurface right cerebellar tentorium, most likely benign meningioma.
--- NOTE | ~2022-10-31 | XR_ITS ---
EXAMINATION: XR chest 2V Exam Date/Time: 10/31/2022 21:25 CDT HISTORY: AMS PER FAMILY MEMBERS, PT UNSURE OF SYMPTOMS Comparison: 05/17/2020. RESULT: Lines, tubes, and devices: None. Lungs and pleura: Senescent changes. Cardiomediastinal silhouette: Stable. Other: No acute osseous or upper abdominal finding. IMPRESSION: No acute cardiopulmonary process. Reviewed, dictated and finalized at location K.
--- NOTE | ~2022-10-31 | US_ITS ---
EXAMINATION: US carotid duplex BI DATE: 11/01/2022 09:47 INDICATION: TIA TECHNIQUE: Grayscale, color Doppler, and pulsed Doppler images of the cervical carotid arteries were obtained. The degree of vessel stenosis is placed in one of the following categories: normal, <50%, 5 0-69%, >=70% but less than near-occlusion, near-occlusion, or total occlusion. Note that percent sten osis relative to normal distal artery lumen diameter is indirectly measured from velocity measurement s as described by Davi, et al. Radiology 2003; 229:340-346. Notes: Normal: Peak systolic velocity <125 centimeters/sec and no plaque <50%. Peak systolic velocity <125 ( EDV <40; ICA/CCA PSV ratio <2.0; used these factors only a tandem lesions or low cardiac output or co ntralateral disease) 50-69 %: PSV 125-230 (EDV 40-100; ratio 2-4) >= 70% but less than near occlusion: PSV greater than 230 (EDV > 100; ratio> 4.0) Near Occlusion: PSV that is variable; markedly narrowed lumen Occlusion: Absent flow on color/spectral Doppler and no lumen on pagan scale. COMPARISON: None. FINDINGS: RIGHT: The right common carotid artery (CCA) peak systolic velocity (PSV) is 53 cm/s. The right internal car otid artery (ICA) PSV is 73 cm/s. The right ICA end-diastolic velocity (EDV) is 21 cm/s. The right IC A/CCA PSV ratio is 1.4. The external carotid artery (ECA) PSV is 52 cm/s. There is antegrade flow in the right vertebral artery. LEFT: The left CCA PSV is 69 cm/s. The left ICA PSV is 78 cm/s. The left ICA EDV is 25 cm/s. The left ICA/C CA PSV ratio is 1.1. The ECA PSV is 55 cm/s. There is antegrade flow in the left vertebral artery. IMPRESSION: 1. Less than 50% stenosis in the right internal carotid artery by sonographic criteria. 2. Less than 50% stenosis in the left internal carotid artery by sonographic criteria. Reviewed, dictated and finalized at location A. IMPRESSION: 1. Less than 50% stenosis in the right internal carotid artery by sonographic donna rodriguez. 2. Less than 50% stenosis in the left internal carotid artery by sonographic manav arciniega.
[2022-10-31 20:03] VITALS: BP 116/65; PULSE 62; RESP 19; TEMP 36.1; O2SAT 97
[2022-10-31 20:16] VITALS: BP 142/90; PULSE 67; RESP 18; O2SAT 98
--- NOTE | 2022-10-31 20:16 | ECG_ITS ---
Measurements Intervals Salol Rate: 57 P: 94 WI: 196 QRS: -18 QRSD: 95 T: 73 QT: 420 QTc: 411 Interpretive Statements SINUS BRADYCARDIA LOW QRS VOLTAGE IN PRECORDIAL LEADS ANTEROSEPTAL INFARCT, AGE INDETERMINATE CONSIDER INFERIOR INFARCT, AGE INDETERMINATE BORDERLINE ST-T WAVE ABNORMALITY- HIGH LATERAL LEADS ABNORMAL ECG ANTEROSEPTAL INFARCT, AGE INDETERMINATE NOW PRESENT Electronically Signed On 11-01-2022 7:00:14 CDT by Mansoor Hernandes D.O.
--- NOTE | 2022-10-31 20:28 | ED.AMS ---
HPI - Altered Mental Status General Chief Complaint: Altered Mental Status <Tejal Fernandez PA-C - Last Filed: 11/01/22 02:35> Stated Complaint: disoriented, AMS, TIA? <Tejal Fernandez PA-C - Last Filed: 11/01/22 02:35> Time Seen by Provider: 10/31/22 20:17 <Tejal Fernandez PA-C - Last Filed: 11/01/22 02:35> Source: patient and family <Tejal Fernandez PA-C - Last Filed: 11/01/22 02:35> Mode of arrival: wheelchair <GRZEGORZ Harrison Last Filed: 11/01/22 02:35> Limitations: no limitations <Tejal Fernandez PA-C - Last Filed: 11/01/22 02:35> History of Present Illness HPI narrative: This is a 72 year old female that presents to the ER for an episode of altered mental status. Reports she was eating dinner. She remembers staring off and feeling off balance. Her family reports she was not responsive to them for a couple of minutes. They helped get her into bed and she almost fell because she was so unsteady. Reports she lay down for a while and was back to baseline in about 15-30 minutes. Reports previous history of stroke and a brain tumor. Denies any current symptoms. Denies chest pain, shortness of breath, abdominal pain, vomiting, dysuria or focal numbness or weakness. <Tejal Fernandez PA-C - Last Filed: 11/01/22 02:35> Related Data Home Medications: Home Medications Medication Instructions Recorded Confirmed vit C 250 mg-vit E 90 mg-zinc 40 1 tablet PO BID 05/02/21 11/01/22 mg-copper 1 [id number] capsule (PreserVision AREDS-2) cyanocobalamin (vitamin B-12) 1,000 mcg PO DAILY 06/25/21 11/01/22 1,000 mcg capsule ferrous sulfate 325 mg (65 mg 325 mg PO DAILY 06/25/21 11/01/22 iron) tablet,delayed release zolpidem 5 mg tablet 5 mg PO HS PRN Sleep 11/01/22 11/01/22 meloxicam 15 mg tablet 15 mg PO DAILY 11/05/22 <Tejal Fernandez PA-C - Last Filed: 11/01/22 02:35> Allergies/Adverse Reactions: Allergies Allergy/AdvReac Type Severity Reaction Status Date / Time No Known Allergies Allergy Verified 11/05/22 08:21 <Tejal Fernandez PA-C - Last Filed: 11/01/22 02:35> Review of Systems Review of Systems: CONSTITUTIONAL: Denies fever EYES: Denies visual changes CARDIOVASCULAR: Denies chest pain RESPIRATORY: Denies dyspnea. GASTROINTESTINAL: Denies abdominal pain, nausea, vomiting GENITOURINARY: Denies dysuria NEUROLOGIC: Denies numbness, or weakness. <GRZEGORZ Harrison Last Filed: 11/01/22 02:35> All systems reviewed & are unremarkable except as noted in HPI and below <Tejal Fernandez PA-C - Last Filed: 11/01/22 02:35> [facility] Past Medical History Medical History: Medical History (Updated 11/05/22 @ 08:39 by Dirk Oro MD) Acid reflux Adenomatous colon polyp Anxiety Arthritis of left knee Asthma Asthma BMI 34.0-34.9,adult BMI 36.0-36.9,adult BMI over 35 Bradycardia Cataract Cholelithiasis COPD (chronic obstructive pulmonary disease) Mildly decreased DLCO on PFTs December 2018 Decreased GFR Depression with anxiety Diabetes Diabetes type 2, controlled Dysphagia Essential hypertension Frequent headaches Frequent loose stools H/O vaginal delivery x2 11/1971, 07/1970 Hematoma of arm History of blood transfusion History of one miscarriage 1968 HTN (hypertension) Hyperlipidemia Hypertension Meningioma Obesity (BMI 30-39.9) Pneumonia SOB (shortness of breath) Swelling of lower extremity Transient ischemic attack Traumatic hematoma of buttock Uncontrolled hypertension <GRZEGORZ [place] Last Filed: 11/01/22 02:35> Surgical History Surgical History: Surgical History H/O dilation and curettage 1968 H/O total hysterectomy with removal of both tubes and ovaries 1995 History of bladder surgery 1995 [place] teeth removed 1971 <Tejal Fernandez PA-C - Last Filed: 11/01/22 02:35> Family History Family History:
[2022-10-31 20:48] LABS: Basophils Absolute Auto 0.1 K/mm3 (0.0-0.1); Basophils Percent Auto 0.4 % (0.2-1.2); Eosinophils Absolute Auto 0.2 K/mm3 (0-0.3); Eosinophils Percent Auto 1.5 % (0-4.4); Hemoglobin 10.2 g/dL (12.0-15.0); Immature Granulocyte Absolute 0.04 K/mm3 (0.00-0.031); Immature Granulocyte Percent A 0.3 % (0-0.5); Lymphocytes Absolute Auto 2.41 K/mm3 (0.9-3.2); Lymphocytes Percent Auto 20.7 % (18.3-44.2); Mean Corpuscular HGB Conc 30.9 g/dl (32-36); Mean Corpuscular Hemoglobin 29.3 pg (26-34); Mean Corpuscular Volume 94.8 fl (80-100); Mean Platelet Volume 9.5 fl (7.4-10.4); Monocytes Absolute Auto 0.9 K/mm3 (0.1-0.6); Neutrophils Absolute Auto 8.1 K/mm3 (1.3-6.7); Neutrophils Percent Auto 69.1 % (45.5-73.1); Platelet Count Result 266 k/mm3 (150-375); Red Blood Count 3.48 M/mm3 (4.2-5.4); Red Cell Distribution Width 14.6 % (11.5-14.5); White Blood Count 11.7 K/mm3 (4.5-10.0)
[2022-10-31 20:58] LABS: Prothrombin Time 13.9 Seconds (11.1-14.7)
[2022-10-31 20:59] VITALS: BP 119/57; PULSE 63; RESP 20; O2SAT 97
[2022-10-31 20:59] LABS: Alanine Aminotransferase 19 U/L (6-35); Albumin Level 4.3 g/dL (3.5-5.1); Alkaline Phosphatase 74 U/L (38-126); Anion Gap 12 mmol/L (8-16); Aspartate Amino Transferase 23 U/L (14-36); Bilirubin,Total 0.4 mg/dL (0.2-1.3); Blood Urea Nitrogen 26 mg/dL (7-17); Calcium 8.7 mg/dL (8.4-10.2); Carbon Dioxide 25 mmol/L (22-30); Chloride 103 mmol/L (98-107); Estimated CRCL calculation 36 ml/min; Estimated Glomerular Filt Rate 37; Glucose 136 mg/dL (65-110); Partial Thromboplastin Time 26.6 SECONDS (22.3-36.8); Potassium 3.5 mmol/L (3.4-5.0); Sodium 140 mmol/L (137-145)
[2022-10-31] MEDS: SODIUM CHLORIDE 0.9% IV 500 ML 999 ML IV CONT (21:38)
[2022-10-31 23:10] VITALS: BP 135/60; PULSE 67; RESP 17; O2SAT 97
--- NOTE | 2022-10-31 23:36 | PM.IMHP ---
H&P: HPI History of Present Illness Date/Time: 10/31/22 23:36 Chief Complaint: patient brought to the ER for evaluation by family with complaints of transient altered mental status Narrative: Very pleasant 72 years old white female was eating dinner earlier today when she stared off into space and felt off balance. Family reports that she was not responsive for them for couple of minutes. They helped her into the bed and she almost fell because she was so unsteady on her feet. She laid down on the bed and was back to her baseline in about 15-20 minutes. She has a previous history of stroke and meningioma. She was completely asymptomatic when she came to the ER for evaluation. Given her neurological history, she is being placed under observation for close monitoring and neurological evaluation. Review of Systems Review of Systems: she denies any chest pain, palpitations, fever rigor chills, nausea vomiting, or abdominal pain. All systems reviewed & are unremarkable except as noted in HPI and below PMFSH Past Medical History Medical History Acid reflux Anxiety Arthritis of left knee Asthma Asthma BMI 34.0-34.9,adult BMI 36.0-36.9,adult BMI over 35 Bradycardia Cataract Cholelithiasis COPD (chronic obstructive pulmonary disease) Mildly decreased DLCO on PFTs December 2018 Decreased GFR Depression with anxiety Diabetes Diabetes type 2, controlled Dysphagia Essential hypertension Frequent headaches Frequent loose stools H/O vaginal delivery x2 11/1971, 07/1970 Hematoma of arm History of blood transfusion History of one miscarriage 1968 HTN (hypertension) Hyperlipidemia Hypertension Meningioma Obesity (BMI 30-39.9) Pneumonia SOB (shortness of breath) Swelling of lower extremity Transient ischemic attack Traumatic hematoma of buttock Uncontrolled hypertension Surgical History Surgical History H/O dilation and curettage 1968 H/O total hysterectomy with removal of both tubes and ovaries 1995 History of bladder surgery 1996 [place] teeth removed 1971 Family History Family History Mother , 79 Family history of cardiovascular disease Breast cancer Hypertension Diabetes mellitus Acute myocardial infarction Thrombocyte disorder Father , 64 Family history of pancreatic cancer Family history of lung cancer High cholesterol Hypertension Diabetes mellitus Sibling Family history of lung cancer Ovarian cancer Diabetes mellitus Grandparent Family history of lung cancer Son , 46 Family history of lung cancer Family history of malignant neoplasm of brain Family history of malignant neoplasm of bone Family history of primary malignant neoplasm of liver Hypertension Diabetes mellitus Social History Social History Years smoked: 1 Smoking status: Former smoker Tobacco type: cigarettes Second hand tobacco smoke exposure: Yes Additional smoking assessment comments: only smoke for a short time as a teen Alcohol intake: never Substance use: never Substance use type: does not use Lack of Transportation: No Lack of Food: Never True Current Housing: I Have Housing Concerned About Future Housing: No Difficulty Paying Gas/Electric Bills: No Difficulty Paying for Meds: No Currently Unemployed: No Education: High School Diploma/GED Difficulty w/ Childcare or Family Care: No Living arrangements: with family Additional living arrangements comments: son and daughter in law Occupation/Education: occupation Additional occupation/education comments: [employer] Gender identity (if verbalized by the patient): Female Spiritual care concerns: No Meds Home Medications and Allergies Home Medications
[2022-10-31 23:53] VITALS: BMI 34.0
[2022-11-01] VITALS (11 sets, daily range): BP systolic 130–166; BP diastolic 47–74; PULSE 62–75; RESP 14–18; TEMP 35.9–36.9; O2SAT 96–100; BMI 35.3
[2022-11-01] MEDS: ASPIRIN 81 MG CHEWABLE TABLET 324 MG PO (00:12)
[2022-11-01 00:59] LABS: Appearance Urine Cloudy (Clear); Bacteria Urine 2+ /hpf; Bilirubin Urine Negative (Negative); Blood Urine Negative (Negative); Color Urine Yellow (Yellow); Glucose Urine UA Negative (Negative); Ketones Urine Trace mg/dL (Negative); Leukocyte Esterase Ur 2+ LEU/UL (Negative); Need Manual Microscopic Reviewed; Nitrate Urine Negative (Negative); Protein Urine Trace mg/dL (Negative); RBC Urine 0-2 /hpf (0-2); Specific Grav Ur 1.021 (1.001-1.035); Squamous Epithelial Cell Urine Moderate /hpf (Few); WBC Urine 21-50 /hpf; pH Urine 5.5 (5.0-9.0)
[2022-11-01 01:01] LABS: Add Urine Microscopic? YES
[2022-11-01 01:11] LABS: Troponin I < 0.012 ng/mL (0.000-0.034)
--- NOTE | 2022-11-01 01:39 | ADMGEN ---
This patient, Susan Pradhan, was admitted to 3 [facility] Surg Room 313-01 at 0105. Patient/family oriented to hospital policies and general routines including ID bracelet, bed and alarms, visiting hours, pain management, procedures, bathroom and other care routines, personal items, smoking policy, room service/diet, and visiting hours. Information on how to activate the Rapid Response Team has been discussed. Patient/Family are encouraged to report perceived risks to care and to ask questions if they do not understand what they are told or what they should do.
[2022-11-01] MEDS: SODIUM CHLORIDE 0.9% IV 1,000 ML 75 ML IV CONT (02:07)
[2022-11-01 06:22] LABS: Troponin I < 0.012 ng/mL (0.000-0.034)
[2022-11-01 07:27] LABS: Basophils Percent Auto 0.4 % (0.2-1.2); Eosinophils Absolute Auto 0.2 K/mm3 (0-0.3); Eosinophils Percent Auto 1.6 % (0-4.4); Hematocrit 32.9 % (37.0-47.0); Hemoglobin 10.3 g/dL (12.0-15.0); Immature Granulocyte Absolute 0.02 K/mm3 (0.00-0.031); Immature Granulocyte Percent A 0.2 % (0-0.5); Lymphocytes Absolute Auto 2.86 K/mm3 (0.9-3.2); Mean Corpuscular HGB Conc 31.3 g/dl (32-36); Mean Corpuscular Hemoglobin 29.3 pg (26-34); Mean Corpuscular Volume 93.7 fl (80-100); Mean Platelet Volume 9.9 fl (7.4-10.4); Monocytes Absolute Auto 0.9 K/mm3 (0.1-0.6); Monocytes Percent Auto 8.8 % (2.6-8.5); Neutrophils Absolute Auto 5.9 K/mm3 (1.3-6.7); Platelet Count Result 270 k/mm3 (150-375); Red Blood Count 3.51 M/mm3 (4.2-5.4); Red Cell Distribution Width 14.5 % (11.5-14.5); White Blood Count 9.9 K/mm3 (4.5-10.0)
[2022-11-01 07:40] LABS: Anion Gap 14 mmol/L (8-16); Blood Urea Nitrogen 25 mg/dL (7-17); Calcium 8.8 mg/dL (8.4-10.2); Carbon Dioxide 24 mmol/L (22-30); Chloride 104 mmol/L (98-107); Estimated CRCL calculation 49 ml/min; Estimated Glomerular Filt Rate 54; Glucose 102 mg/dL (65-110); Magnesium 1.7 mg/dL (1.6-2.3); Potassium 3.5 mmol/L (3.4-5.0); Sodium 142 mmol/L (137-145)
[2022-11-01] MEDS: ASPIRIN 81 MG ENTERIC TABLET PO (08:10)
[2022-11-01] MEDS: MONTELUKAST SODIUM 10 MG TABLET PO (08:10)
[2022-11-01] MEDS: GLIMEPIRIDE 1 MG TABLET PO ×2 (08:10→16:31)
[2022-11-01] MEDS: PANTOPRAZOLE 40 MG TABLET PO ×2 (08:10→16:25)
[2022-11-01] MEDS: ROSUVASTATIN 10 MG TABLET 20 MG PO (08:10)
[2022-11-01] MEDS: NIFEdipine 30 MG TAB.ER.24 PO (08:10)
[2022-11-01] MEDS: ALPRAZolam (*CRX) 0.25 MG TABLET PO ×3 (08:11→16:25)
[2022-11-01] MEDS: CYANOCOBALAMIN 1,000 MCG TABLET 1000 MCG PO (08:11)
[2022-11-01] MEDS: OPTI-GEN TAB 1 TABLET PO ×2 (08:11→16:25)
[2022-11-01] MEDS: FERROUS SULFATE 325 MG TABLET DR PO (08:11)
[2022-11-01] MEDS: carvediloL 6.25 MG TABLET PO ×2 (08:11→20:03)
--- NOTE | 2022-11-01 10:01 | PCPTNOTE ---
attempted PT eval at 900--pt was out of room for MRI.
[2022-11-01 11:17] LABS: Glucose Point of Care 112 mg/dl (65-105)
[2022-11-01 11:20] LABS: Troponin I < 0.012 ng/mL (0.000-0.034)
--- NOTE | 2022-11-01 11:44 | PCSTNOTE ---
Bedside swallowing evaluation completed. Patient positioned upright in bed with head of bed elevated. Cursory oral peripheral examination results within normal limits. Trials of thin liquid by spoon, cup, and straw were within functional limits. Trials of pureed consistency by spoon and solid (danny cracker) by fingers were also within functional limits. No signs of aspiration or penetration. Please note that silent aspiration cannot be ruled out at bedside and can be evaluated with a modified barium swallow study. Recommendations: regular diet consistency and thin liquids. No further speech therapy is recommended. Thank you for the referral of this patient.
--- NOTE | 2022-11-01 13:00 | WPDNEURCNPN ---
Consult date: 11/01/22 HPI: Susan Pradhan is a 72 year old female Admitted to the hospital for the complaints of change in the mental status with the possibility of the TIA patient came to the ER for the complaints of change in the mental status describing that when she was eating dinner she remembered is tearing of an as per the family she was not responsive to them for a couple of minutes she was helped to get into bed when she almost fell because she was unsteady then she laid down for a while and was back to baseline in about 15 to 30 minutes patient does have a previous history of stroke and a brain tumor but otherwise she was not complaining of anything else. Her home medications particularly included only sleeping pill zolpidem 5 mg HS p.r.n. and vitamin supplements and iron supplements she does have a long history of multiple problems but particular 1 anxiety with depression, type 2 diabetes mellitus, hypertension, and follow-up by the habitat conservation planner as well. She is not a smoker not a drinker and her initial exam in the emergency room was normal her vital signs were normal except blood pressure 166/74 CBC with hemoglobin of 10.2 and completely lab was normal with creatinine of 1.4 CT scan of the head was negative, x-ray of the chest was normal, EKG was normal without atrial fibrillation, he has had Doppler study of the carotid which reveals less than 50% stenosis bilaterally an MRI of the brain is negative also x-ray chest is negative. Review of Systems Review of Systems: All systems reviewed & are unremarkable except as noted in HPI and below PMFSH Past Medical History Medical History Acid reflux Anxiety Arthritis of left knee Asthma Asthma BMI 34.0-34.9,adult BMI 36.0-36.9,adult BMI over 35 Bradycardia Cataract Cholelithiasis COPD (chronic obstructive pulmonary disease) Mildly decreased DLCO on PFTs December 2018 Decreased GFR Depression with anxiety Diabetes Diabetes type 2, controlled Dysphagia Essential hypertension Frequent headaches Frequent loose stools H/O vaginal delivery x2 11/1971, 07/1970 Hematoma of arm History of blood transfusion History of one miscarriage 1968 HTN (hypertension) Hyperlipidemia Hypertension Meningioma Obesity (BMI 30-39.9) Pneumonia SOB (shortness of breath) Swelling of lower extremity Transient ischemic attack Traumatic hematoma of buttock Uncontrolled hypertension Surgical History Surgical History H/O dilation and curettage 1968 H/O total hysterectomy with removal of both tubes and ovaries 1995 History of bladder surgery 1995 [place] teeth removed 1971 Family History Family History Mother , 79 Family history of cardiovascular disease Breast cancer Hypertension Diabetes mellitus Acute myocardial infarction Thrombocyte disorder Father , 64 Family history of pancreatic cancer Family history of lung cancer High cholesterol Hypertension Diabetes mellitus Sibling Family history of lung cancer Ovarian cancer Diabetes mellitus Grandparent Family history of lung cancer Son , 46 Family history of lung cancer Family history of malignant neoplasm of brain Family history of malignant neoplasm of bone Family history of primary malignant neoplasm of liver Hypertension Diabetes mellitus Social History Social History Years smoked: 1 Smoking status: Former smoker Second hand tobacco smoke exposure: Yes Additional smoking assessment comments: only smoke for a short time as a teen Alcohol intake: never Substance use: never Substance use type: does not use Lack of Transportation: No Lack of Food: Never True Current Housing: I Have Housing Concerned About Future Housing: No Difficulty P
--- NOTE | 2022-11-01 13:44 | WPDNEURCNPN ---
Assessment and Plan Assessment and plan (1) Acute UTI: Code(s): N39.0 - Urinary tract infection, site not specified Status: Acute Plan 1. TIA 2. Documented extra-axial mass on the undersurface of the right cerebellar tentorium most likely benign meningioma but with no evidence of any new stroke. carotids3. Negative Doppler study of the carotids. Plan is to continue the aspirin 81 mg daily in addition to all her other medications as outlined. Consult date: 11/01/22 HPI: Susan Pradhan is a 72 year old femaleAdmitted to the hospital for the complaints of changes in the mental status with the possibility of the TIA. Patient came to the emergency room for the complaints of change in the mental status describing that when she was eating dinner she remembered eating but as per the family she was not responsive to them for couple of minutes. The head to get in to bed when she almost fell because she was unsteady and then she laid down for a while and was back to baseline in about 15 to 30 minutes. Patient does have a previous history of stroke and a brain tumor but otherwise she was not complaining of anything else. Her home medications particularly included sleeping pill zolpidem 5 mg HS p.r.n. and vitamin supplements and iron supplements. Does have a long history of multiple problems were particularly 1. Anxiety with depression 2. Type 2 diabetes mellitus 3. Hypertension she is being followed by the armature bander as well she is not a smoker not a drinker under her initial exam in the emergency room was normal except blood pressure being 166/74 CBC revealed hemoglobin of 10.2 creatinine was 1.[address] scan of the head was negative for the bleed x-ray chest was normal EKG was normal without atrial fibrillation. She already had a Doppler study of the carotid which reveals less than 50% stenosis bilaterally MRI of the brain is negative psoas the x-ray of the chest. Review of Systems Review of Systems: All systems reviewed & are unremarkable except as noted in HPI and below PMFSH Past Medical History Medical History Acid reflux Anxiety Arthritis of left knee Asthma Asthma BMI 34.0-34.9,adult BMI 36.0-36.9,adult BMI over 35 Bradycardia Cataract Cholelithiasis COPD (chronic obstructive pulmonary disease) Mildly decreased DLCO on PFTs December 2018 Decreased GFR Depression with anxiety Diabetes Diabetes type 2, controlled Dysphagia Essential hypertension Frequent headaches Frequent loose stools H/O vaginal delivery x2 11/1971, 07/1970 Hematoma of arm History of blood transfusion History of one miscarriage 1968 HTN (hypertension) Hyperlipidemia Hypertension Meningioma Obesity (BMI 30-39.9) Pneumonia SOB (shortness of breath) Swelling of lower extremity Transient ischemic attack Traumatic hematoma of buttock Uncontrolled hypertension Surgical History Surgical History H/O dilation and curettage 1968 H/O total hysterectomy with removal of both tubes and ovaries 1995 History of bladder surgery 1995 [place] teeth removed 1971 Family History Family History Mother , 79 Family history of cardiovascular disease Breast cancer Hypertension Diabetes mellitus Acute myocardial infarction Thrombocyte disorder Father , 64 Family history of pancreatic cancer Family history of lung cancer High cholesterol Hypertension Diabetes mellitus Sibling Family history of lung cancer Ovarian cancer Diabetes mellitus Grandparent Family history of lung cancer Son , 46 Family history of lung cancer Family history of malignant neoplasm of brain Family history of malignant neoplasm of bone Family history of primary malignant neoplasm of liver Hypertension Diabetes mellitus Social History Socia
--- NOTE | 2022-11-01 13:54 | PM.IMPN ---
Progress Note: A&P Assessment and Plan (1) Transient ischemic attack: Code(s): G45.9 - Transient cerebral ischemic attack, unspecified Status: Acute Assessment and Plan: Period of unresponsiveness with family at home. Patient has a history of this. Continue with daily ASA. She was loaded with ASA in the ED. Neurology consult and rec's are appreciated. ECHO and EEG pending for Wednesday Carotid Doppler and brain MRI are both negative. No recurrence of symptoms since admission. TSH and vitamin B12 normal Hgb A1c is 6.4% from 08/2022 Add on lipid panel for tomorrow morning (2) Meningioma: Code(s): D32.9 - Benign neoplasm of meninges, unspecified Status: Acute Assessment and Plan: Stable. Follows with Radiation oncologist at [facility]. Has had for 15-20 years approximately. Yearly evaluations and MRIs. (3) Diabetes type 2, controlled: Qualifiers: Diabetes mellitus certified residential medication aide insulin use: without senior care use Diabetes mellitus complication status: with hyperglycemia Qualified Code(s): E11.65 - Type 2 diabetes mellitus with hyperglycemia Code(s): E11.9 - Type 2 diabetes mellitus without complications Status: Acute Assessment and Plan: Hgb A1c 6.7% in August On glimepiride at home. / accu checks Diabetic diet (4) Hypertension: Qualifiers: Hypertension type: primary hypertension Qualified Code(s): I10 - Essential (primary) hypertension Code(s): I10 - Essential (primary) hypertension Status: Acute Assessment and Plan: Blood pressures reviewed. Stable. SBP 130-160/40-60 Continue coreg, nifedipine, Losartan/Hydrochlorothiazide, and Lasix. Subjective Date/time seen: 11/01/22 13:54 Interval history: This is a 72-year-old female with a past medical history of COPD, depression, type 2 diabetes, hypertension, hyperlipidemia, meningioma, and TIA who presents to the ER on 10/31 after having an episode of unresponsive at home. Per the patient and her son she was sitting in a chair starring off into space when she stops answering questions and stopped responding to her family. Family states she became pale. They assisted her to her bedroom where her home oxygen is thinking that her oxygen was low. She was placed on 2 L and her pulse ox was 93%. They checked her blood push pressure which was 70/40 and rechecked with another machine 100/40. She then laid down in bed and went to sleep. The family called EMS and the next thing the patient remembers is waking up in the ER thinking she had just woken up from a nap. She denies any prodromal symptoms prior to her unresponsiveness. She follows with Dr. Helm her radiation oncologist for her meningioma at [facility]. She recently a left-sided brain cyst drained back in January of 2022. She is not currently under treatment for her meningioma rather they keep his testing every 6 months. She says she has lived with this meningioma for the last 20 years. She also follows with Dr. Kruger with Hematology for a reactive leukocytosis. 11/01-she is seen today at the bedside with her son sitting up and eating lunch. Her son recalls the events of yesterday. She says that she feels fine today. No neurological symptoms or focal deficits noted. She denies dizziness, headache, shortness of breath, chest pain, nausea, vomiting, diarrhea or constipation. She does complain of some urinary frequency therefore will continue with her IV Rocephin. Her creatinine was elevated likely due to the dehydration. Creatinine has improved with IV fluids. Her MRI of her brain and carotid Dopplers are both negative. Neurology has recommended adding an EEG and echo is still pending for tomorrow. Review of Systems Review of Systems: All systems reviewed & are unremarkable except as noted in HPI and below Exam Narrative: General: well appearing, well developed, well nourished, appea
--- NOTE | 2022-11-01 15:34 | PHAR ---
PT'S HOME MED VIBERZI 75 MG TABS VERIFIED BY PHARMACY
[2022-11-01 16:16] LABS: Glucose Point of Care 157 mg/dl (65-105)
[2022-11-01] MEDS: FLUTICASONE/SALMETEROL 115-21 MCG INHALER 1 PUFF 2 PUFF INHALATION (20:23)
[2022-11-01 22:27] LABS: Glucose Point of Care 152 mg/dl (65-105)
[2022-11-02] VITALS: BP 126/54; PULSE 57; PULSE 62; RESP 20; TEMP 35.7; O2SAT 100
--- NOTE | 2022-11-02 | ECHO_ITS ---
Patient Info Name: Susan Pradhan Age: 72 years : 1950 Gender: Female Ht: 64 in Wt: 205 lbs BSA: 2.09 m2 HR: 58 bpm BP: 164 / 67 mmHg Heart Rhythm: Sinus Rhythm Technical Quality: Fair Exam Date: 11/02/2022 4:09 PM Exam Location: [facility] Pulmonary Exam Room: [facility] Patient Status: Outpatient Admit Date: 10/31/2022 Staff Ordering Physician: Orlando Berrios MD Keyboard Operator: Linda Raya RDCS Attending Provider: Orlando Berrios MD Exam Type: CA echo doppler w bubble study Study Info Indications - TIA Limited two-dimensional transthoracic echocardiogram is performed. Contrast/Agitated Saline Contrast/Ag. Saline: Agitated Saline Amount: 2.00 ml Summary 1. Left ventricular chamber dimension is normal. 2. Left ventricular systolic function is normal, estimated at 60-65%. 3. There is mildly increased left ventricular wall thickness. 4. The left ventricular diastolic function is grade I diastolic dysfunction. 5. Right ventricular systolic function is normal. 6. Intact interatrial septum visualized by color flow and agitated saline imaging. Negative bubble study. 7. No significant valvular disease. Left Ventricle Left ventricular chamber dimension is normal. Left ventricular systolic function is normal, estimated at 60-65%. There is mildly increased left ventricular wall thickness. The left ventricular diastolic function is grade I diastolic dysfunction. Right Ventricle Right ventricular chamber dimension is normal. Right ventricular systolic function is normal. Left Atria Left atrial chamber dimension is normal. Right Atria Right atrial chamber dimension is normal. Atrial Septum Intact interatrial septum visualized by color flow and agitated saline imaging. Negative bubble study. Aortic Valve The aortic valve is trileaflet. There is no aortic valve stenosis. There is no aortic valve regurgitation. There is mild aortic valve calcification. Pulmonic Valve The pulmonic valve is not well visualized. There is trace pulmonic regurgitation. Mitral Valve There is trace mitral valve regurgitation. Tricuspid Valve There is trace tricuspid valve regurgitation. Pericardium/Pleural There is no pericardial effusion. Inferior Vena Cava Normal inferior vena cava with >50% collapse upon inspiration consistent with normal right atrial pressure, 3 mmHg. Aorta The aortic root size at the sinus of Valsalva is normal. Left Ventricular Outflow Tract Name Value Normal LVOT 2D LVOT Diameter 2.0 cm LVOT Doppler LVOT Peak Gradient 7 mmHg LVOT Mean Gradient 4 mmHg LVOT VTI 30 cm LVOT VTI/AV VTI Ratio 0.8 LVOT Stroke Volume 98 ml LVOT CO 18.2 l/min LVOT CI 8.7 l/min/m2 Pulmonic Valve Name Value Normal PV Doppler
[2022-11-02 04:00] VITALS: BP 164/67; PULSE 57; PULSE 58; RESP 18; TEMP 36.3; O2SAT 98
[2022-11-02 06:49] LABS: Basophils Percent Auto 0.4 % (0.2-1.2); Eosinophils Absolute Auto 0.2 K/mm3 (0-0.3); Eosinophils Percent Auto 1.9 % (0-4.4); Hematocrit 32.5 % (37.0-47.0); Hemoglobin 10.2 g/dL (12.0-15.0); Immature Granulocyte Absolute 0.01 K/mm3 (0.00-0.031); Immature Granulocyte Percent A 0.1 % (0-0.5); Lymphocytes Absolute Auto 2.07 K/mm3 (0.9-3.2); Lymphocytes Percent Auto 25.2 % (18.3-44.2); Mean Corpuscular HGB Conc 31.4 g/dl (32-36); Mean Corpuscular Hemoglobin 29.4 pg (26-34); Mean Corpuscular Volume 93.7 fl (80-100); Mean Platelet Volume 9.3 fl (7.4-10.4); Monocytes Absolute Auto 0.7 K/mm3 (0.1-0.6); Monocytes Percent Auto 8.6 % (2.6-8.5); Neutrophils Absolute Auto 5.2 K/mm3 (1.3-6.7); Neutrophils Percent Auto 63.8 % (45.5-73.1); Platelet Count Result 247 k/mm3 (150-375); Red Blood Count 3.47 M/mm3 (4.2-5.4); Red Cell Distribution Width 14.6 % (11.5-14.5); White Blood Count 8.2 K/mm3 (4.5-10.0)
[2022-11-02 07:01] LABS: Alanine Aminotransferase 18 U/L (6-35); Alkaline Phosphatase 76 U/L (38-126); Anion Gap 7 mmol/L (8-16); Aspartate Amino Transferase 23 U/L (14-36); Bilirubin,Total 0.5 mg/dL (0.2-1.3); Blood Urea Nitrogen 19 mg/dL (7-17); Calcium 8.7 mg/dL (8.4-10.2); Carbon Dioxide 29 mmol/L (22-30); Chloride 103 mmol/L (98-107); Cholesterol 112 mg/dL (0-200); Estimated CRCL calculation 54 ml/min; Estimated Glomerular Filt Rate > 60; Glucose 123 mg/dL (65-110); HDL Direct 28 mg/dL; Magnesium 1.7 mg/dL (1.6-2.3); Potassium 3.5 mmol/L (3.4-5.0); Sodium 139 mmol/L (137-145); Triglycerides 161 mg/dL (<150)
[2022-11-02 07:09] LABS: LDL Cholesterol Direct 59 mg/dL
[2022-11-02 07:34] LABS: Glucose Point of Care 127 mg/dl (65-105)
[2022-11-02] MEDS: FLUTICASONE/SALMETEROL 115-21 MCG INHALER 1 PUFF 2 PUFF INHALATION (07:44)
[2022-11-02 08:00] VITALS: BP 158/98; PULSE 58; PULSE 68; RESP 18; TEMP 36.6; O2SAT 98
[2022-11-02] MEDS: LOSARTAN POTASSIUM 100 MG TABLET PO (08:40)
[2022-11-02] MEDS: ALPRAZolam (*CRX) 0.25 MG TABLET PO ×3 (08:40→16:50)
[2022-11-02] MEDS: carvediloL 6.25 MG TABLET PO (08:40)
[2022-11-02] MEDS: ROSUVASTATIN 10 MG TABLET 20 MG PO (08:40)
[2022-11-02] MEDS: CYANOCOBALAMIN 1,000 MCG TABLET 1000 MCG PO (08:40)
[2022-11-02] MEDS: GLIMEPIRIDE 1 MG TABLET PO ×2 (08:40→16:51)
[2022-11-02] MEDS: ASPIRIN 81 MG ENTERIC TABLET PO (08:40)
[2022-11-02] MEDS: PANTOPRAZOLE 40 MG TABLET PO ×2 (08:40→16:50)
[2022-11-02] MEDS: MONTELUKAST SODIUM 10 MG TABLET PO (08:40)
[2022-11-02] MEDS: FERROUS SULFATE 325 MG TABLET DR PO (08:40)
[2022-11-02] MEDS: OPTI-GEN TAB 1 TABLET PO ×2 (08:40→16:50)
[2022-11-02] MEDS: NIFEdipine 30 MG TAB.ER.24 PO (08:40)
[2022-11-02] MEDS: hydroCHLOROthiazide 25 MG TABLET PO (08:40)
--- NOTE | 2022-11-02 08:55 | PM.IMPN ---
Progress Note: A&P Assessment and Plan (1) Transient ischemic attack: Code(s): G45.9 - Transient cerebral ischemic attack, unspecified Status: Acute Assessment and Plan: Period of unresponsiveness with family at home. Patient has a history of this. Continue with daily ASA. She was loaded with ASA in the ED. Neurology consult and rec's are appreciated. ECHO and EEG pending for Wednesday Carotid Doppler and brain MRI are both negative. No recurrence of symptoms since admission. TSH and vitamin B12 normal Hgb A1c is 6.4% from 08/2022 Add on lipid panel. Triglycerides 160, total cholesterol 112, LDL 59, HDL 28. (2) Meningioma: Code(s): D32.9 - Benign neoplasm of meninges, unspecified Status: Acute Assessment and Plan: Stable. Follows with Radiation oncologist at [facility]. Has had for 15-20 years approximately. Yearly evaluations and MRIs. (3) Diabetes type 2, controlled: Qualifiers: Diabetes mellitus complication status: with hyperglycemia Diabetes mellitus terminal gauger insulin use: without retirement use Qualified Code(s): E11.65 - Type 2 diabetes mellitus with hyperglycemia Code(s): E11.9 - Type 2 diabetes mellitus without complications Status: Acute Assessment and Plan: Hgb A1c 6.7% in August On glimepiride at home. / accu checks Diabetic diet (4) Hypertension: Qualifiers: Hypertension type: primary hypertension Qualified Code(s): I10 - Essential (primary) hypertension Code(s): I10 - Essential (primary) hypertension Status: Acute Assessment and Plan: Blood pressures reviewed. Stable. SBP 130-160/40-60 Continue coreg, nifedipine, Losartan/Hydrochlorothiazide, and Lasix. Plan Awaiting completion of echo. If that is normal then patient can discharge. Subjective Date/time seen: 11/02/22 08:55 Interval history: This is a 72-year-old female with a past medical history of COPD, depression, type 2 diabetes, hypertension, hyperlipidemia, meningioma, and TIA who presents to the ER on 10/31 after having an episode of unresponsive at home. Per the patient and her son she was sitting in a chair starring off into space when she stops answering questions and stopped responding to her family. Family states she became pale. They assisted her to her bedroom where her home oxygen is thinking that her oxygen was low. She was placed on 2 L and her pulse ox was 93%. They checked her blood push pressure which was 70/40 and rechecked with another machine 100/40. She then laid down in bed and went to sleep. The family called EMS and the next thing the patient remembers is waking up in the ER thinking she had just woken up from a nap. She denies any prodromal symptoms prior to her unresponsiveness. She follows with Dr. Helm her radiation oncologist for her meningioma at [facility]. She recently a left-sided brain cyst drained back in January of 2022. She is not currently under treatment for her meningioma rather they keep his testing every 6 months. She says she has lived with this meningioma for the last 20 years. She also follows with Dr. Kruger with Hematology for a reactive leukocytosis. 11/01-she is seen today at the bedside with her son sitting up and eating lunch. Her son recalls the events of yesterday. She says that she feels fine today. No neurological symptoms or focal deficits noted. She denies dizziness, headache, shortness of breath, chest pain, nausea, vomiting, diarrhea or constipation. She does complain of some urinary frequency therefore will continue with her IV Rocephin. Her creatinine was elevated likely due to the dehydration. Creatinine has improved with IV fluids. Her MRI of her brain and carotid Dopplers are both negative. Neurology has recommended adding an EEG and echo is still pending for tomorrow. 11/02-no acute events overnight. Patient is sitting up finishing lunch state
--- NOTE | 2022-11-02 09:37 | WPDNEUROLOGY ---
Neurology EEG Report General Information Date of Study: 11/02/22 TEST Routine EEG DIAGNOSIS Rule out seizure CONDITION OF RECORDING Awake, drowsy, asleep EEG NUMBER [id number] CLINICAL HISTORY Patient report she had an episode of confusion a few days ago. While eating dinner she started staring off, feelign off balanced. Family reported that she was not responsive to them for a couple of minutes. Family took her to bed to lie down. She was back to baseline after 15-30 min. EEG DESCRIPTION During the awake state with eyes closed the background consists of 9 Hz posterior dominant rhythm which attenuates appropriately with eye opening. The recording is continuous. There is a well developed anterior-posterior gradient. No significant asymmetries of background activities are noted. With drowsiness there is waxing and waning of the dominant rhythm with eventual replacement by a mixture of beta, alpha, and theta activity. As the patient enters stage II sleep, symmetrical spindles are present. Arousal is unremarkable. There are no epileptiform discharges or seizures during this recording. Hyperventilation and photic stimulation were not performed. IMPRESSION This is a normal routine EEG recorded in awake and asleep states. There are no electrographic seizures identified, nor are there any epileptiform discharges. Please note that a normal EEG cannot exclude a seizure disorder. Clinical correlation is recommended.
[2022-11-02 11:21] LABS: Glucose Point of Care 125 mg/dl (65-105)
[2022-11-02 11:53] VITALS: BP 159/65; PULSE 54; RESP 20; TEMP 35.6; O2SAT 99
[2022-11-02 12:00] VITALS: PULSE 59
[2022-11-02 16:00] VITALS: PULSE 60
--- NOTE | 2022-11-02 16:38 | PM.DS ---
DS: Admitting Diagnosis Discharge Date 11/02 Admitting Diagnosis Transient altered mental status DS: Discharge Diagnosis Discharge Diagnosis (1) Transient ischemic attack: Code(s): G45.9 - Transient cerebral ischemic attack, unspecified Status: Acute Assessment and Plan: Period of unresponsiveness with family at home. Patient has a history of this. Continue with daily ASA. She was loaded with ASA in the ED. Neurology consult and rec's are appreciated. ECHO and EEG pending for Wednesday Carotid Doppler and brain MRI are both negative. No recurrence of symptoms since admission. TSH and vitamin B12 normal Hgb A1c is 6.4% from 08/2022 Add on lipid panel. Triglycerides 160, total cholesterol 112, LDL 59, HDL 28. (2) Meningioma: Code(s): D32.9 - Benign neoplasm of meninges, unspecified Status: Acute Assessment and Plan: Stable. Follows with Radiation oncologist at [facility]. Has had for 15-20 years approximately. Yearly evaluations and MRIs. (3) Diabetes type 2, controlled: Qualifiers: Diabetes mellitus alf insulin use: without superintendent marine oil terminal use Diabetes mellitus complication status: with hyperglycemia Qualified Code(s): E11.65 - Type 2 diabetes mellitus with hyperglycemia Code(s): E11.9 - Type 2 diabetes mellitus without complications Status: Acute Assessment and Plan: Hgb A1c 6.7% in August On glimepiride at home. / accu checks Diabetic diet (4) Hypertension: Qualifiers: Hypertension type: primary hypertension Qualified Code(s): I10 - Essential (primary) hypertension Code(s): I10 - Essential (primary) hypertension Status: Acute Assessment and Plan: Blood pressures reviewed. Stable. SBP 130-160/40-60 Continue coreg, nifedipine, Losartan/Hydrochlorothiazide, and Lasix. Plan Awaiting completion of echo. If that is normal then patient can discharge. DS: Summary Hospital Course Hospital Course: This is a 72-year-old female with a past medical history of COPD, depression, type 2 diabetes, hypertension, hyperlipidemia, meningioma, and TIA who presents to the ER on 10/31 after having an episode of unresponsive at home.? Per the patient and her son she was sitting in a chair starring off into space when she stops answering questions and stopped responding to her family.? Family states she became pale.? They assisted her to her bedroom where her home oxygen is thinking that her oxygen was low.? She was placed on 2 L and her pulse ox was 93%.? They checked her blood push pressure which was 70/40 and rechecked with another machine 100/40. She then laid down in bed and went to sleep.? The family called EMS and the next thing the patient remembers is waking up in the ER thinking she had just woken up from a nap.? She denies any prodromal symptoms prior to her unresponsiveness.? She follows with Dr. Helm her radiation oncologist for her meningioma at [facility].? She recently a left-sided brain cyst drained back in January of 2022.? She is not currently under treatment for her meningioma rather they keep his testing every 6 months.? She says she has lived with this meningioma for the last 20 years.? She also follows with Dr. Kruger with Hematology for a reactive leukocytosis. 11/01-she is seen today at the bedside with her son sitting up and eating lunch.? Her son recalls the events of yesterday.? She says that she feels fine today.? No neurological symptoms or focal deficits noted.? She denies dizziness, headache, shortness of breath, chest pain, nausea, vomiting, diarrhea or constipation.? She does complain of some urinary frequency therefore will continue with her IV Rocephin.? Her creatinine was elevated likely due to the dehydration.? Creatinine has improved with IV fluids.? Her MRI of her brain and carotid Dopplers are both negative.? Neurology has recommended adding an EEG and echo is still pending for t
[2022-11-02 16:52] LABS: Glucose Point of Care 117 mg/dl (65-105)
--- NOTE | 2022-11-04 06:35 | PC.NURSE ---
ECHO report faxed to Dr. Tee.
== END 2022-11-02 17:30 | disposition home or self-care (01) ==
LOC: ANHED 22:42 → ANH3MEDSUR 11-02 15:42
PROVIDERS: Emergency Medicine; Nurse Practitioner Acute Care; Admitting Provider Family Medicine; Emergency Provider Physician Assistant; PCP Family Medicine; Visit Provider Student in an Organized Health Care Education/Training Program
DX: G45.9 Transient cerebral ischemic attack, unspecified (principal); D32.9 Benign neoplasm of meninges, unspecified; I10 Essential (primary) hypertension; E04.2 Nontoxic multinodular goiter; E11.65 Type 2 diabetes mellitus with hyperglycemia; E11.29 Type 2 diabetes mellitus with other diabetic kidney complication; R80.9 Proteinuria, unspecified; E78.5 Hyperlipidemia, unspecified; F41.8 Other specified anxiety disorders; J44.9 Chronic obstructive pulmonary disease, unspecified; K21.9 Gastro-esophageal reflux disease without esophagitis; K58.0 Irritable bowel syndrome with diarrhea; Z86.73 Personal history of transient ischemic attack (TIA), and cerebral infarction without residual deficits; E66.9 Obesity, unspecified; Z68.35 Body mass index [BMI] 35.0-35.9, adult; Z79.51 Long term (current) use of inhaled steroids; Z79.84 Long term (current) use of oral hypoglycemic drugs; Z79.82 Long term (current) use of aspirin
CPT/HCPCS: 36415; 70450; 70551; 71046; 80048; 80053; 80061; 81001; 82607; 82948; 83735; 84443; 84484; 85025; 85610; 85730; 87086; 87088; 92610; 93005; 93306; 93880; 94640; 95816; 96361; 96365; 96366; 96375; 97161; 97165; 99285; A9270; G0378; J0696; J7030; J7040

== ENCOUNTER 2022-11-10 15:05 | Outpatient (CLI) | payer MEDICARE, SELFPAY ==
[2022-11-10 15:20] LABS: Basophils Absolute Auto 0.1 K/mm3 (0.0-0.1); Basophils Percent Auto 0.5 % (0.2-1.2); Eosinophils Absolute Auto 0.2 K/mm3 (0-0.3); Eosinophils Percent Auto 1.4 % (0-4.4); Hematocrit 34.9 % (37.0-47.0); Hemoglobin 11.1 g/dL (12.0-15.0); Immature Granulocyte Absolute 0.03 K/mm3 (0.00-0.031); Immature Granulocyte Percent A 0.3 % (0-0.5); Lymphocytes Absolute Auto 2.38 K/mm3 (0.9-3.2); Lymphocytes Percent Auto 21.6 % (18.3-44.2); Mean Corpuscular HGB Conc 31.8 g/dl (32-36); Mean Corpuscular Volume 94.3 fl (80-100); Mean Platelet Volume 8.6 fl (7.4-10.4); Monocytes Absolute Auto 0.9 K/mm3 (0.1-0.6); Monocytes Percent Auto 7.9 % (2.6-8.5); Neutrophils Absolute Auto 7.5 K/mm3 (1.3-6.7); Neutrophils Percent Auto 68.3 % (45.5-73.1); Platelet Count Result 262 k/mm3 (150-375); Red Cell Distribution Width 14.1 % (11.5-14.5)
[2022-11-10 16:26] LABS: Iron 56 ug/dL (37-170)
[2022-11-10 16:29] LABS: Anion Gap 11 mmol/L (8-16); Blood Urea Nitrogen 24 mg/dL (7-17); Calcium 8.7 mg/dL (8.4-10.2); Carbon Dioxide 26 mmol/L (22-30); Chloride 102 mmol/L (98-107); Estimated Glomerular Filt Rate 49; Glucose 97 mg/dL (65-110); Potassium 3.7 mmol/L (3.4-5.0); Sodium 139 mmol/L (137-145)
[2022-11-10 16:37] LABS: Percent Iron Saturation 19 % (20-50)
[2022-11-10 17:38] LABS: Folic Acid 9.6 ng/mL (2.76->20)
== END 2022-11-10 15:06 | disposition home or self-care (01) ==
LOC: ANHLAB 15:07
PROVIDERS: PCP Family Medicine; Visit Provider Internal Medicine Hematology & Oncology
DX: D64.9 Anemia, unspecified (principal)
CPT/HCPCS: 36415; 80048; 82607; 82728; 82746; 83540; 83550; 85025

== ENCOUNTER 2023-02-03 12:39 | Emergency (ER) | payer MEDICARE, SELFPAY ==
--- NOTE | ~2023-02-03 | US_ITS ---
EXAMINATION: US venous doppler [facility] DATE: 02/03/2023 16:45 INDICATION: left lower extremity edema . TECHNIQUE: Grayscale images without and with compression and Doppler images of the left lower extremi ty veins were obtained. COMPARISON: None FINDINGS: The left common femoral vein, profunda (deep) femoral vein, femoral vein, popliteal vein, peroneal v ein, posterior tibial veins, gastrocnemius vein, and greater saphenous vein are patent. IMPRESSION: Patent left lower extremity veins. No evidence of deep venous thrombosis. Reviewed, dictated and finalized at location K. OMY PROFESSOR
--- NOTE | ~2023-02-03 | XR_ITS ---
EXAM: XR foot LT min 3V DATE: 02/03/2023 16:45 HISTORY: diabetic foot wound, 1ST TOE SWOLLEN, RED . COMPARISON: None available. FINDINGS: Decreased mineralization. No fracture or dislocation. No lytic or blastic lesion. Scattere d moderate degenerative changes. Prominent os navicularis. Mild Achilles and moderate plantar entheso kole. No erosion or periosteal change. Forefoot soft tissue swelling. IMPRESSION: No radiographic evidence of osteomyelitis. Note the great toe is obscured by overlapping anatomy in the lateral view. Depending on the location of the skin wound, dedicated radiographs of the great toe could be considered for further evaluation. Reviewed, dictated and finalized at location K. DRINIER TENDER IMPRESSION: No radiographic evidence of osteomyelitis. Note the great toe is obscured by overlapping anatomy in the lateral view. Depe nding on the location of the skin wound, dedicated radiographs of the great toe could be considered for further evaluation.
[2023-02-03 12:41] VITALS: BP 146/63; PULSE 68; RESP 14; TEMP 36.4; O2SAT 98
--- NOTE | 2023-02-03 15:54 | ED.SKABFB ---
HPI - Skin/Abscess/Foreign Bdy General Chief complaint: Skin/Abscess/Foreign Body Stated complaint: toe wound Time Seen by Provider: 02/03/23 15:41 Source: patient Mode of arrival: ambulatory Limitations: no limitations History of Present Illness HPI narrative: This is a 72 year old female that presents to the ER for a wound to the left great toe ongoing over the last week. Reports she had a bandage and tape over it that she left on her toe for 2 days. Reports an ulcerating lesion to the great toe. She has been applying some over the counter antibiotic ointment with little relief. Denies fevers. Related Data Home Medications Medication Instructions Recorded Confirmed vit C 250 mg-vit E 90 mg-zinc 40 1 tablet PO BID 05/02/21 12/10/22 mg-copper 1 [id number] capsule (PreserVision AREDS-2) cyanocobalamin (vitamin B-12) 1,000 mcg PO DAILY 06/25/21 12/10/22 1,000 mcg capsule ferrous sulfate 325 mg (65 mg 325 mg PO DAILY 06/25/21 12/10/22 iron) tablet,delayed release Allergies Allergy/AdvReac Type Severity Reaction Status Date / Time No Known Allergies Allergy Verified 12/10/22 07:45 Review of Systems Review of Systems: CONSTITUTIONAL: Denies fever SKIN: Reports diabetic foot ulcer NEUROLOGIC: Denies numbness All systems reviewed & are unremarkable except as noted in HPI and below PMFSH Past Medical History Medical History Acid reflux Adenomatous colon polyp Anxiety Arthritis of left knee Asthma Asthma BMI 36.0-36.9,adult Bradycardia Cataract Cholelithiasis COPD (chronic obstructive pulmonary disease) Mildly decreased DLCO on PFTs December 2018 Decreased GFR Depression with anxiety Diabetes Diabetes type 2, controlled Dysphagia Essential hypertension Frequent headaches Frequent loose stools H/O vaginal delivery x2 11/1971, 07/1970 Hematoma of arm History of blood transfusion History of one miscarriage 1968 HTN (hypertension) Hyperlipidemia Hypertension Meningioma Obesity (BMI 30-39.9) Pneumonia SOB (shortness of breath) Swelling of lower extremity Transient ischemic attack Traumatic hematoma of buttock Uncontrolled hypertension Surgical History Surgical History H/O dilation and curettage 1968 H/O total hysterectomy with removal of both tubes and ovaries 1995 History of bladder surgery 1995 [place] teeth removed 1971 Family History Family History Mother , 79 Family history of cardiovascular disease Breast cancer Hypertension Diabetes mellitus Acute myocardial infarction Thrombocyte disorder Father , 64 Family history of pancreatic cancer Family history of lung cancer High cholesterol Hypertension Diabetes mellitus Sibling Family history of lung cancer Ovarian cancer Diabetes mellitus Grandparent Family history of lung cancer Son , 46 Family history of lung cancer Family history of malignant neoplasm of brain Family history of malignant neoplasm of bone Family history of primary malignant neoplasm of liver Hypertension Diabetes mellitus Social History Social History Years smoked: 1 Smoking status: Former smoker Second hand tobacco smoke exposure: Yes Additional smoking assessment comments: only smoke for a short time as a teen Alcohol intake: never Substance use: never Substance use type: does not use Lack of Transportation: No Lack of Food: Never True Current Housing: I Have Housing Concerned About Future Housing: No Difficulty Paying Gas/Electric Bills: No Difficulty Paying for Meds: No Currently Unemployed: No Education: High School Diploma/GED Difficulty w/ Childcare or Family Care: No Living arrangements: with fam
[2023-02-03 16:03] LABS: Basophils Absolute Auto 0.1 K/mm3 (0.0-0.1); Basophils Percent Auto 0.5 % (0.2-1.2); Eosinophils Absolute Auto 0.2 K/mm3 (0-0.3); Eosinophils Percent Auto 1.6 % (0-4.4); Hematocrit 35.5 % (37.0-47.0); Hemoglobin 10.8 g/dL (12.0-15.0); Immature Granulocyte Absolute 0.03 K/mm3 (0.00-0.031); Immature Granulocyte Percent A 0.3 % (0-0.5); Lymphocytes Absolute Auto 2.32 K/mm3 (0.9-3.2); Lymphocytes Percent Auto 20.1 % (18.3-44.2); Mean Corpuscular HGB Conc 30.4 g/dl (32-36); Mean Corpuscular Volume 95.4 fl (80-100); Mean Platelet Volume 9.2 fl (7.4-10.4); Monocytes Percent Auto 8.6 % (2.6-8.5); Neutrophils Absolute Auto 7.9 K/mm3 (1.3-6.7); Neutrophils Percent Auto 68.9 % (45.5-73.1); Platelet Count Result 249 k/mm3 (150-375); Red Blood Count 3.72 M/mm3 (4.2-5.4); Red Cell Distribution Width 13.9 % (11.5-14.5); White Blood Count 11.5 K/mm3 (4.5-10.0)
[2023-02-03 16:21] LABS: Anion Gap 10 mmol/L (8-16); Blood Urea Nitrogen 25 mg/dL (7-17); CRP 0.8 mg/dL (<1.0); Calcium 9.6 mg/dL (8.4-10.2); Carbon Dioxide 28 mmol/L (22-30); Chloride 104 mmol/L (98-107); Estimated CRCL calculation 54 ml/min; Estimated Glomerular Filt Rate > 60; Glucose 98 mg/dL (65-110); Potassium 3.5 mmol/L (3.4-5.0); Sodium 142 mmol/L (137-145)
[2023-02-03 16:38] LABS: Erythrocyte Sedimentation Rate 121 mm/hr (0-20)
[2023-02-03 18:10] VITALS: BP 174/66; PULSE 64; RESP 16; O2SAT 96
== END 2023-02-03 18:10 | disposition home or self-care (01) ==
PROVIDERS: Emergency Provider Physician Assistant; PCP Family Medicine
DX: E11.621 Type 2 diabetes mellitus with foot ulcer (principal); J44.9 Chronic obstructive pulmonary disease, unspecified; I10 Essential (primary) hypertension; E78.5 Hyperlipidemia, unspecified; Z87.891 Personal history of nicotine dependence; Z86.73 Personal history of transient ischemic attack (TIA), and cerebral infarction without residual deficits
CPT/HCPCS: 36415; 73630; 80048; 85025; 85652; 86140; 87070; 87147; 87181; 87186; 87205; 93971; 99284

== ENCOUNTER 2023-04-27 10:00 | Outpatient (CLI) | payer MEDICARE, SELFPAY ==
[2023-04-27 16:38] LABS: Creatinine Urine 156.1 mg/dL
[2023-04-27 16:45] LABS: MALB Creatinine Ratio 74.1 mg/g (0-30); Microalbumin Urine Random 115.7 mg/L (0-16.7)
[2023-04-27 17:03] LABS: Cholesterol 110 mg/dL (0-200); HDL Direct 31 mg/dL; Triglycerides 155 mg/dL (<150)
[2023-04-27 17:13] LABS: LDL Cholesterol Direct 61 mg/dL
== END 2023-04-27 10:01 | disposition home or self-care (01) ==
LOC: ANHLAB 10:03
PROVIDERS: Nurse Practitioner Family; PCP Family Medicine; Visit Provider Internal Medicine Hematology & Oncology
DX: E78.5 Hyperlipidemia, unspecified (principal); E11.9 Type 2 diabetes mellitus without complications
CPT/HCPCS: 36415; 80061; 82043

== ENCOUNTER 2023-05-20 08:04 | Outpatient (CLI) | payer MEDICARE, SELFPAY ==
--- NOTE | ~2023-05-20 | US_ITS ---
EXAMINATION: US abdomen complete DATE: 05/20/2023 08:40 INDICATION: Hepatomegaly. TECHNIQUE: Multiple grayscale and Doppler ultrasound images of the abdomen were obtained. COMPARISON: None FINDINGS: The abdominal aorta is normal in caliber. Inferior vena cava is normal. The liver is normal without focal lesion. No liver surface nodularity. The visualized portions of the head, body, and ta il of the pancreas are normal. There is normal flow in main portal vein. The gallbladder is normal in size and contains gallstones. No gallbladder wall thickening. There was a positive sonographic Hanane y sign. The common duct is normal and measures 5 mm. The kidneys are normal in size. There is a 1.9 c m cyst in right kidney. The spleen is normal in size. IMPRESSION: 1. Cholelithiasis and positive sonographic Higgins sign, but no gallbladder distention or gallbladder wall thickening to suggest acute cholecystitis. Reviewed, dictated and finalized at location A. IMPRESSION: 1. Cholelithiasis and positive sonographic Higgins sign, but no gallbladder dist ention or gallbladder wall thickening to suggest acute cholecystitis.
== END 2023-05-20 08:05 ==
LOC: MICIMG 08:06
PROVIDERS: PCP Nurse Practitioner Family; Visit Provider Nurse Practitioner Family
DX: R16.0 Hepatomegaly, not elsewhere classified (principal); N28.1 Cyst of kidney, acquired; K80.20 Calculus of gallbladder without cholecystitis without obstruction
CPT/HCPCS: 76700

== ENCOUNTER 2023-05-20 08:55 | Outpatient (CLI) | payer MEDICARE, SELFPAY ==
[2023-05-20 09:16] LABS: Basophils Absolute Auto 0.1 K/mm3 (0.0-0.1); Basophils Percent Auto 0.5 % (0.2-1.2); Eosinophils Absolute Auto 0.2 K/mm3 (0-0.3); Eosinophils Percent Auto 1.8 % (0-4.4); Hemoglobin 11.2 g/dL (12.0-15.0); Immature Granulocyte Absolute 0.04 K/mm3 (0.00-0.031); Immature Granulocyte Percent A 0.4 % (0-0.5); Lymphocytes Percent Auto 21.7 % (18.3-44.2); Mean Corpuscular Volume 93.8 fl (80-100); Mean Platelet Volume 8.8 fl (7.4-10.4); Monocytes Absolute Auto 0.8 K/mm3 (0.1-0.6); Monocytes Percent Auto 8.3 % (2.6-8.5); Neutrophils Absolute Auto 6.8 K/mm3 (1.3-6.7); Neutrophils Percent Auto 67.3 % (45.5-73.1); Platelet Count Result 245 k/mm3 (150-375); Red Blood Count 3.73 M/mm3 (4.2-5.4); Red Cell Distribution Width 13.6 % (11.5-14.5); White Blood Count 10.1 K/mm3 (4.5-10.0)
[2023-05-20 09:40] LABS: Iron 47 ug/dL (37-170)
[2023-05-20 09:45] LABS: Alanine Aminotransferase 18 U/L (6-35); Albumin Level 4.7 g/dL (3.5-5.1); Alkaline Phosphatase 89 U/L (38-126); Anion Gap 12 mmol/L (4-12); Aspartate Amino Transferase 25 U/L (14-36); Bilirubin,Total 0.4 mg/dL (0.2-1.3); Blood Urea Nitrogen 24 mg/dL (7-17); Calcium 9.6 mg/dL (8.4-10.2); Carbon Dioxide 27 mmol/L (22-30); Chloride 103 mmol/L (98-107); Estimated Glomerular Filt Rate 49; Glucose 130 mg/dL (65-110); Potassium 3.7 mmol/L (3.4-5.0); Sodium 142 mmol/L (137-145)
[2023-05-20 09:51] LABS: Percent Iron Saturation 16 % (20-50)
[2023-05-20 10:49] LABS: Folic Acid 7.9 ng/mL (2.76->20)
== END 2023-05-20 08:56 | disposition home or self-care (01) ==
LOC: ANHLAB 08:57
PROVIDERS: PCP Nurse Practitioner Family; Visit Provider Internal Medicine Hematology & Oncology
DX: D64.9 Anemia, unspecified (principal)
CPT/HCPCS: 36415; 80053; 82607; 82728; 82746; 83540; 83550; 85025

== ENCOUNTER 2023-08-16 09:07 | Outpatient (CLI) | payer MEDICARE, SELFPAY ==
[2023-08-16 11:06] LABS: Creatinine Urine 105.6 mg/dL
[2023-08-16 11:11] LABS: MALB Creatinine Ratio 74.3 mg/g (0-30); Microalbumin Urine Random 78.5 mg/L (0-16.7)
== END 2023-08-16 09:08 | disposition home or self-care (01) ==
LOC: ANHLAB 09:10
PROVIDERS: Nurse Practitioner Family; PCP Family Medicine; Visit Provider Internal Medicine Hematology & Oncology
DX: R80.9 Proteinuria, unspecified (principal); E11.29 Type 2 diabetes mellitus with other diabetic kidney complication
CPT/HCPCS: 82043

== ENCOUNTER 2023-10-29 08:09 | Outpatient (CLI) | payer MEDICARE, SELFPAY ==
--- NOTE | ~2023-10-29 | MM_ITS ---
EXAMINATION: MM screening salud BI w jazmin HISTORY: Screening mammogram, family history of breast cancer in her mother. TECHNIQUE: Craniocaudal and mediolateral oblique 3-D tomosynthesis images were obtained and synthetic 2-D images were generated. CAD analysis was submitted and interpreted. COMPARISON: 10/21/2022, 08/08/2021, 07/11/2020 BREAST PARENCHYMAL COMPOSITION:Not Dense. There are scattered areas of fibroglandular density. FINDINGS: No suspicious mass, calcification, or architectural distortion are identified in either ashli ast to suggest malignancy. There has been no suspicious interval change. IMPRESSION: No mammographic evidence of malignancy. Recommend routine screening mammography in one year. BI-RADS Category 1: Negative Reviewed, dictated and finalized at location .
== END 2023-10-29 08:10 | disposition home or self-care (01) ==
LOC: ANHIMG 08:12
PROVIDERS: PCP Family Medicine; Visit Provider Family Medicine
DX: Z12.31 Encounter for screening mammogram for malignant neoplasm of breast (principal)
CPT/HCPCS: 77063; 77067

== ENCOUNTER 2023-11-16 10:25 | Outpatient (CLI) | payer MEDICARE, SELFPAY ==
[2023-11-16 11:11] LABS: Basophils Absolute Auto 0.1 K/mm3 (0.0-0.1); Basophils Percent Auto 0.6 % (0.2-1.2); Eosinophils Absolute Auto 0.2 K/mm3 (0-0.3); Eosinophils Percent Auto 2.1 % (0-4.4); Hematocrit 36.3 % (37.0-47.0); Hemoglobin 11.4 g/dL (12.0-15.0); Immature Granulocyte Absolute 0.01 K/mm3 (0.00-0.031); Immature Granulocyte Percent A 0.1 % (0-0.5); Lymphocytes Absolute Auto 1.75 K/mm3 (0.9-3.2); Mean Corpuscular HGB Conc 31.4 g/dl (32-36); Mean Corpuscular Hemoglobin 29.9 pg (26-34); Mean Corpuscular Volume 95.3 fl (80-100); Mean Platelet Volume 9.4 fl (7.4-10.4); Monocytes Absolute Auto 0.7 K/mm3 (0.1-0.6); Neutrophils Absolute Auto 5.3 K/mm3 (1.3-6.7); Neutrophils Percent Auto 66.2 % (45.5-73.1); Platelet Count Result 221 k/mm3 (150-375); Red Blood Count 3.81 M/mm3 (4.2-5.4); Red Cell Distribution Width 13.6 % (11.5-14.5)
[2023-11-16 11:57] LABS: Anion Gap 10 mmol/L (4-12); Blood Urea Nitrogen 26 mg/dL (7-17); Carbon Dioxide 27 mmol/L (22-30); Chloride 102 mmol/L (98-107); Estimated Glomerular Filt Rate 54; Glucose 101 mg/dL (65-110); Sodium 139 mmol/L (137-145)
[2023-11-16 13:01] LABS: Folic Acid 16.5 ng/mL (2.76->20); Vitamin B12 > 1000.0 pg/mL (239-931)
[2023-11-16 13:40] LABS: Iron 81 ug/dL (37-170)
[2023-11-16 13:51] LABS: Percent Iron Saturation 27 % (20-50)
== END 2023-11-16 10:26 | disposition home or self-care (01) ==
LOC: ANHLAB 10:28
PROVIDERS: PCP Family Medicine; Visit Provider Internal Medicine Hematology & Oncology
DX: D64.9 Anemia, unspecified (principal)
CPT/HCPCS: 36415; 80048; 82607; 82728; 82746; 83540; 83550; 85025

== ENCOUNTER 2024-02-16 08:06 | Outpatient (CLI) | payer MEDICARE, SELFPAY ==
--- NOTE | 2024-03-09 08:06 | P.SLEEP_ITS ---
Sleep Study Date of Study: 02/16/24 Ordering Provider: Karri Cordoba APRN Interpreting Physician: Twyla Sam DO Sleep Study Type: Split Polysomnogram Height: 1.63 m Weight: 92.533 kg Body Mass Index: 35.0 Neck Circumference (inches): 17 [place]: 2 Reason for Sleep Study Difficulty falling asleep and staying asleep Sleep History The patient is a 73-year-old female that had a sleep study ordered by the [facility] for evaluation of sleep apnea. The patient denies awakening from sleep short of breath. She denies awakening at night with heartburn, belching or cough. She denies snoring. She denies waking up gasping for air throughout the night. She denies having breathing problems at night observed by herself or others. She occasionally sweats excessively at night. She denies having heart palpitations or irregular heartbeats during the night. She denies falling asleep during the day and while driving. She denies sleep paralysis and cataplexy. She denies having trouble at school or work due to sleepiness. She denies feeling afraid of going to sleep. She denies having nightmares. She frequently remembers her dreams. She frequently has thoughts racing through her mind. She denies feeling sad or depressed. She frequently has anxiety. She denies having muscular tension. She denies noticing parts of her body jerk. She denies kicking during the night. She constantly has leg pain throughout the night. She denies awakening with morning jaw pain. She denies being bothered by pain during the day and denies being awakened by pain during the night. She denies waking up feeling stiff in the morning. She occasionally wakes up with sore or achy muscles. She denies waking up with pain in the neck, spine and other joints. She goes to bed between 10:30-11 p.m. on both weekdays and weekends. She wakes up 2-3 times throughout the night to urinate and it takes her an hour to fall back asleep. She wakes up between 730-8 a.m. on both weekdays and weekends. She typically gets 4-6 hours of sleep per night. She will stay in bed less than 30 minutes after waking up in the morning. She currently lives with her son and [id number]. She denies consuming any caffeinated beverages within 2 hours of bedtime. She denies engaging in physical exercise before bedtime. She will read before falling asleep. She will occasionally watch television before falling asleep. She denies taking naps in the afternoon or the evening. She consumes 2-3 cups of caffeinated beverage per day. She smoked a few cigarettes when she was a teenager. She denies alcohol and recreational drug use. [facility] Past Medical History Medical History Adenomatous colon polyp Acute UTI Altered awareness, transient Tooth pain Right knee pain Rash and nonspecific skin eruption Hematoma of arm Traumatic hematoma of buttock Burning sensation of skin Erythema Hair loss Dysphagia Meningioma Cholelithiasis Frequent loose stools Acute bacterial sinusitis Dysphasia Neck pain Obesity (BMI 30-39.9) Cataract Weight loss BMI 36.0-36.9,adult Back pain Malaise Elevated WBC count Decreased GFR Persistent microalbuminuria associated with type 2 diabetes mellitus Transient ischemic attack Neck fullness Frequent headaches Irritable bowel syndrome with diarrhea Hypoxemia Diabetes type 2, controlled Uncontrolled hypertension Bradycardia Hypertension Arthritis of left knee Sinusitis Right hand pain SOB (shortness of breath) Asthma Depression with anxiety Essential hypertension Hyperlipidemia Swelling of lower extremity History of blood transfusion Pneumonia COPD (chronic obstructive pulmonary disease) Mildly decreased DLCO on PFTs December 2018 Asthma Anxiety HTN (hypertension) History of one miscarriage 1968 Acid reflux H/O vaginal delivery x2 11/1971, 07/1970 Surgical History Surgical History H/O dilation and curettage 1968 [place] teeth removed 1971 H/O total hysterectomy with removal of both tubes and ovaries 1995 History of bladder surgery 1995 Family History Family History Mother , 79 Family history of cardiovascular disease Breast cancer Hypertension Diabetes mellitus Acute myocardial infarction Thrombocyte disorder Father , 64 Family history of pancreatic cancer Family history of lung cancer High cholesterol Hypertension Diabetes mellitus Sibling Family history of lung cancer Ovarian cancer Diabetes mellitus Grandparent Family history of lung cancer Son , 46 Family history of lung cancer Family history of malignant neoplasm of brain Family history of malignant neoplasm of bone Family history of primary malignant neoplasm of liver Hypertension Diabetes mellitus Social History Social History Years smoked: 1 Smoking status: Former smoker Second hand tobacco smoke exposure: Yes Additional smoking assessment comments: only smoke for a short time as a teen Alcohol intake: never Substance use: never Substance use type: does not use Lack of Transportation: No Lack of Food: Never True Current Housing: I Have Housing Concerned About Future Housing: No Difficulty Paying Gas/Electric Bills: No Difficulty Paying for Meds: No Currently Unemployed: No Education: High School Diploma/GED Difficulty w/ Childcare or Family Care: No Living arrangements: with family Additional living arrangements comments: son and daughter in law Occupation/Education: occupation Additional occupation/education comments: [employer] Gender identity (if verbalized by the patient): Female Spiritual care concerns: No Medications Home Medications ?Medication ?Instructions ?Recorded ?Confirmed ?Type furosemide 20 mg tablet 20 mg PO QAM PRN edema #30 tabs 09/26/19 12/30/23 Rx albuterol sulfate 90 mcg/actuation 1 puff inhalation Q4-6H PRN 11/01/19 12/30/23 Rx aerosol inhaler (ProAir HFA) shortness of breath or wheezing #18 grams Symbicort 160 mcg-4.5 2 puff inhalation Q12H #10.2 grams 12/04/20 12/30/23 Rx mcg/actuation HFA aerosol inhaler (budesonide-formoterol) albuterol sulfate 2.5 mg/3 mL 2.5 mg (3 mL) inhalation QID PRN 12/09/20 12/30/23 Rx (0.083 %) solution for nebulization shortness of breath or wheezing #360 mL vit C 250 mg-vit E 90 mg-zinc 40 1 tablet PO BID 05/02/21 12/30/23 History mg-copper 1 [id number] capsule (PreserVision AREDS-2) cyanocobalamin (vitamin B-12) 1,000 mcg PO DAILY 06/25/21 12/30/23 History 1,000 mcg capsule ferrous sulfate 325 mg (65 mg 325 mg PO DAILY 06/25/21 12/30/23 History iron) tablet,delayed release aspirin 81 mg tablet,delayed 81 mg PO DAILY #30 tabs 06/02/22 12/30/23 Rx release (Consuelo Low Dose Aspirin) carvedilol 6.25 mg tablet 6.25 mg PO Q12H #180 tabs 04/14/23 12/30/23 Rx omeprazole 20 mg capsule,delayed 40 mg (2 x 20 mg) PO DAILY GERD 3 04/14/23 12/30/23 Rx release months #180 caps rosuvastatin 20 mg tablet 20 mg PO DAILY #90 tabs 04/14/23 12/30/23 Rx metformin 500 mg tablet 500 mg PO BID #180 tabs 05/13/23 12/30/23 Rx meloxicam 7.5 mg tablet 7.5 mg PO BID #60 tabs 10/31/23 12/30/23 Rx eluxadoline 75 mg tablet (Viberzi) 75 mg PO BID #180 tabs 11/04/23 12/30/23 Rx nifedipine 30 mg tablet,extended 30 mg PO DAILY #90 tabs 11/18/23 12/30/23 Rx release eszopiclone 2 mg tablet 2 mg PO ONCE #1 tablet 11/24/23 12/30/23 Rx glimepiride 1 mg tablet 1 mg PO BID #180 tabs 12/15/23 12/30/23 Rx montelukast 10 mg tablet 10 mg PO DAILY 1 month #90 tabs 12/27/23 12/30/23 Rx dapagliflozin propanediol 10 mg 10 mg PO DAILY #90 tabs 12/30/23 12/30/23 Rx tablet (Farxiga) magnesium glycinate 100 mg (as 200 mg PO DAILY 12/30/23 12/30/23 History glycinate) tablet losartan 100 See Rx Instructions .Route 01/12/24 Rx mg-hydrochlorothiazide 25 mg tablet .COMPLEX #90 tabs alprazolam 0.25 mg tablet 0.25 mg PO TID #90 tabs 02/03/24 Rx Sleep Procedure A full night split study using the [employer] multi-channel system recorded the standard physiologic parameters including EEG, EOG, submentalis EMG, anterior tibialis EMG, EKG, body position, nasal and oral airflow using nasal pressure sensor and thermistor.? Respiratory parameters of chest and abdominal movements were recorded with Respiratory Inductance Plethysmography belts. Oxygen saturation was recorded by pulse oximetry. Video monitoring was also performed. Sleep stages, periodic limb movements, and EEG arousals were scored in 30 second epochs according to the criteria of the AASM Scoring Manual. The Apnea-Hypopnea Index was calculated using CMS guidelines for definition of hypopnea with 4% O2 desaturations while scoring respiratory events. Sleep Architecture During the diagnostic portion of the study, the total recording time was 180.9 minutes. The total sleep time was 139.0 minutes. Sleep latency was 31.4 minutes.? REM latency was 100.5 minutes. Sleep Efficiency was 76.8%. The patient had 7 awakenings for an awakening index of 3.0. Wake after sleep onset time was 10.5 minutes. The patient spent 13.0 minutes, 9.4% of total sleep time in Stage N1. The patient spent 106.0 minutes, 76.3% in Stage N2. The patient spent 0.0 minutes, 0.0% in Stage N3. The patient spent 20.0 minutes, 14.4% in Stage REM sleep. At 12:24:01 AM the patient was placed on PAP treatment and was titrated at pressures ranging from 5 cm H20 up to 9 cm H20. During the treatment portion of the study, the total recording time was 353.7 minutes.? The total sleep time was 273.5 minutes. Sleep latency was 49.0 minutes. REM latency was 62.5 minutes. Sleep Efficiency was 77.3%. Wake after Sleep Onset time was 31.5 minutes. The patient spent 24.0 minutes, 8.8% of total sleep time in Stage N1. The patient spent 147.0 minutes, 53.7% in Stage N2. The patient spent 0.0 minutes, 0.0% in Stage N3. The patient spent 102.5 minutes, 37.5% in Stage REM. Respiratory Analysis During the diagnostic portion of the study, the patient had 27 hypopneas and 1 obstructive apnea for an overall Apnea Hypopnea Index of 12.1 events per hour. The REM Apnea Hypopnea Index was 45.0. The NREM Apnea Hypopnea Index was 10.1. The patient had a Central Apnea Hypopnea Index of 0. There was no evidence of Dawson-Atikns Respirations. During the treatment portion of the study, the patient had 14 hypopneas and 1 obstructive apnea for an overall Apnea Hypopnea Index of 3.3 events per hour. The REM Apnea Hypopnea Index was 2.9. The NREM Apnea Hypopnea Index was 3.5. The patient had a Central Apnea Hypopnea Index of 0. There was no evidence of Dawson-Atkins Respirations. The patient was started on CPAP 5 cm H2O and titrated to CPAP 9 cm H2O due to hypopneas. The patient was able to fall asleep starting on CPAP 5 cm H2O. The patient was able to achieve REM sleep on 5 cm H2O. On CPAP 5 cm H2O, the patient spent 110 minutes in NREM and 37 minutes in REM with 1 hypopnea, resulting in an AHI of 0.4. The patient had a sleep efficiency of 66.7% on this pressure setting. The sleep efficiency was the lowest on 5 cm H2O due to the patient acclimating to CPAP. Arousals During the diagnostic portion of the study, there were a total of 35 arousals for an arousal index of 15.1.? There were 3 respiratory arousals for an index of 1.3. There were 24 periodic limb movement arousals for an index of 10.4.? There were 0 isolated limb movement arousals for an index of 0. There were 9 spontaneous arousals for an index of 3.9. During the treatment portion of the study, there were a total of 42 arousals for an index of 9.2.? There were 3 respiratory arousals for an index of 0.7. There were 16 periodic limb movement arousals for an index of 3.5.? There were 3 isolated limb movement arousals for an index of 0.7. There were 20 spontaneous arousals for an index of 4.4. Periodic Limb Movements During the diagnostic portion of the study, the patient had 0 isolated limb movements with an index of 0. The patient had 181 periodic limb movements with an index of 78.1, which is elevated (normal < 15). The patient had a total of 181 limb movements with a total limb movement index of 78.1. During the treatment portion of the study, the patient had 5 isolated limb movements with an index of 1.1. The patient had 198 periodic limb movements with an index of 43.4, which is elevated (normal < 15). The patient had a total of 203 limb movements with a total limb movement index of 44.5. Oximetry Data During the diagnostic portion of the study, the patient had an average oxygen saturation of 92.9% in wake with a minimum oxygen saturation of 87% and a maximum oxygen saturation of 98%. The patient had an average oxygen saturation of 89.9% in sleep with a minimum oxygen saturation of 82.0% and a maximum oxygen saturation of 96.0%. The patient had 64 oxygen desaturations resulting in an Oxygen Desaturation Index of 27.6. The patient spent 40.8 minutes, 22.5% of tot al sleep time with an oxygen saturation less than 88%. During the treatment portion of the study, the patient had an average oxygen saturation of 92.4% in wake with a minimum oxygen saturation of 86.0% and a maximum oxygen saturation of 98.0%. The patient had an average oxygen saturation of 92.3% in sleep with a minimum oxygen saturation of 85.0% and a maximum oxygen saturation of 99.0%. The patient had 48 oxygen desaturations resulting in an Oxygen Desaturation Index of 10.5. The patient spent 4.2 minutes, 1.2% of total sleep time with an oxygen saturation less than 88%. Snoring Profile Mild to moderate snoring was present in the baseline portion of the study. The snoring resolved once the patient was started on CPAP therapy. Cardiac Profile The EKG lead showed normal sinus rhythm with occasional PVCs. During the diagnostic portion of the study, the average pulse rate was 64.5 bpm.? The minimum pulse rate was 38.0 bpm. The maximum pulse rate was 81.0 bpm. During the treatment portion of the study, the average pulse rate was 60.2 bpm.? The minimum pulse rate was 52.0 bpm. The maximum pulse rate was 80.0 bpm. EEG Profile No signs of seizure activity seen. Assessment and Plan Assessment and Plan (1) MITZY (obstructive sleep apnea): Code(s): G47.33 - Obstructive sleep apnea (adult) (pediatric) Status: Acute Assessment and Plan: In the baseline portion of the study, the patient had an overall AHI of 12.1 with desaturation down to 82%. This is consistent with mild sleep apnea. Due to the patient's COPD, she qualifies for treatment. I recommend that the patient be prescribed CPAP 5 cm H2O, size small Resmed F30i mask, CPAP filters/tubing and heated humidity. The patient's oxygen saturation remained above 88% on this pressure setting. This should be used with all episodes of sleep.? Compliance should be reviewed within 31-90 days of starting therapy for usage greater than 4 hours per night greater than 70% of the nights. The patient should be asked about symptoms such as?excessive daytime sleepiness, quality of sleep, decreased nocturia, increased?mental functioning such as memory, mood, and concentration. The patient had a significant number of limb movements during the study with the majority being periodic in nature. The patient had a serum ferritin drawn in November 2023 that was 75.3. If highly suspicious for RLS, I recommend starting a dopamine agonist and titrating the dose until symptoms resolve. There are nonpharmacological methods to treat limb movements including daily exercise, stretching calf muscles before bed, avoiding excessive amounts of caffeine and alcohol, vitamin B supplementation, magnesium lotion massaged into legs before bed, and use of a weighted blanket. Data The data obtained during this sleep study is adequate for interpretation. Certification This sleep study has been reviewed by a board certified sleep medicine physician.
[2024-03-09 16:30] VITALS: BMI 35.0
== END 2024-02-17 07:20 | disposition home or self-care (01) ==
PROVIDERS: PCP Family Medicine; Visit Provider Nurse Practitioner Family
DX: G47.33 Obstructive sleep apnea (adult) (pediatric) (principal); G47.00 Insomnia, unspecified; G47.10 Hypersomnia, unspecified
CPT/HCPCS: 95811

== ENCOUNTER 2024-03-31 09:04 | Outpatient (CLI) | payer OTHER, MEDICARE, SELFPAY ==
--- NOTE | ~2024-03-31 | XR_ITS ---
Right Shoulder Technique: AP and scapular Y views were obtained. Clinical History: Injury Findings: No fracture or dislocation is seen. Osseous alignment is anatomic. The glenohumeral and acr omioclavicular joints demonstrate minimal degenerative change. Possible small focus of calcific tendi nitis of the distal rotator cuff insertion. Impression: No acute fracture or dislocation. Chronic findings, as above. Reviewed, dictated and finalized at location . EMS DEVELOPMENT CONSULTANT Impression: No acute fracture or dislocation. Chronic findings, as above.
--- OUTSIDE RECORDS SUMMARY | 2024-03-31 09:51 | XMS_ITS | Clinical Summary ---
Author Organization [facility] Address [address] [place] [phone] Phone Care Team Providers Care Circle Cutting Saw Operator Name Role Phone Willam Tee MD Primary Care Provider [phone] Allergies No known active allergies Medications Medication Sig Dispensed Refills Start Date End Date Status ALPRAZolam (XANAX) 0.25 MG tablet TK 1 T PO BID 08/01/2019 Active escitalopram (LEXAPRO) 10 MG tablet TK 1 T PO D 05/19/2019 Active glimepiride (AMARYL) 1 MG tablet 2 (two) times a day 05/15/2019 Active losartan-hydroCHLOROt hiazide (HYZAAR) 100-25 MG per tablet TK 1 T PO D 06/22/2019 Act fabby metFORMIN (GLUCOPHAGE) 500 MG tablet 08/02/2019 Active montelukast (SINGULAIR) 10 MG tablet TK 1 T PO D 06/16/2019 Active rosuvastatin (CRESTOR) 20 MG tablet TK 1 T PO D 05/26/2019 Active tolterodine (DETROL) 2 MG tablet TK 1 T PO Q 12 H 05/19/2019 Active Ventolin HFA 108 (90 Base) MCG/ACT inhaler INL 1 PUFF PO Q 4 TO 6 H PRF SOB OR WHZ 11/01/2019 Active ketoconazole (NIZORAL) 2 % cream FAUSTO EXT AA ON THE FACE BID 08/15/2019 Active omeprazole (PriLOSEC) [address] capsule TK 1 C PO D PRN 10/14/2019 Act fabby NIFEdipine CC (ADALAT CC) 30 MG 24 hr tablet TAKE 1 TABLET(30 MG) BY MOUTH 1 TIME EACH DAY 30 tablet 6 02/16/2020 Active carvedilol (COREG) 6.25 MG tablet Take 6.25 mg by mouth every 12 (twelve) hours 08/12/2020 Active meloxicam (MOBIC) 7.5 MG tablet Take 7.5 mg by mouth 1 (one) time each day 09/13/2020 Active budesonide-formoterol (SYMBICORT) 80-4.5 MCG/ACT inhaler Inhale 2 puffs 2 times daily Active cyanocobalamin (VITAMIN B-12) 1000 MCG tablet Take 1,000 mcg by mouth daily Active ferrous sulfate 325 (65 Fe) MG tablet Take 325 mg by mouth daily Active Multiple Vitamins-Minerals (PreserVision/Lutein) capsule Take 1 capsule by mouth 2 times daily Active Active Problems Problem Noted Date Diagnosed Date Vitamin B12 deficiency anemia 11/28/2019 Benign hypertension 06/07/2017 Chronic obstructive pulmonary disease 06/07/2017 H/O: hysterectomy 06/07/2017 Leukocytosis 06/07/2017 Benign neoplasm of brain 06/07/2017 Type 2 diabetes mellitus 06/07/2017 Immunizations Name Administration Dates Next Due Influenza, Injectable, Quadrivalent 11/06/2019 Sars-cov-2, Unspecified 04/28/2020 Family History Medical History Relation Comments Diabetes mellitus Father Hyperlipidemia Father Hypertension Father Breast cancer Mother Coronary artery disease Mother Diabetes mellitus Mother Hypertension Mother Hypertension Son Relation Status Comments Father Mother Son Social History Tobacco Use Types Packs/Day Years Used Date Smoking Tobacco: Former Smokeless Tobacco: Never Alcohol Use Standard Drinks/Week Comments Never 0 (1 standard drink = 0.6 oz pur e alcohol) AUDIT-C Answer Date Recorded Frequency of Alcohol Consumption Never 08/06/2019 Average Number of Drinks Not on file 020 Frequency of Binge Drinking Not on file 07/10 Sex and Gender Information Value Date Recorded Sex Assigned at Not on file Gender Identity Not on file Sexual Orientation Not on file Last Filed Vital Signs Vital Sign Reading Time Taken Comments Blood Pressure 110/64 03/31/2021 9:44 AM REINSURANCE CLAIM ANALYST Pulse - - Temperature 36.6 C (97.9 F) 03/31/2021 9:44 AM REINSURANCE CLAIM ANALYST Respiratory Rate 18 03/31/2021 9:44 AM REINSURANCE CLAIM ANALYST Oxygen Saturation - - Inhaled Oxygen Concentration - - Weight 96.2 kg (212 lb) 03/31/2021 9:44 AM REINSURANCE CLAIM ANALYST Height 162.6 cm (5' 4 ) 03/31/2021 9:44 AM REINSURANCE CLAIM ANALYST Body Mass Index 36.39 03/31/2021 9:44 AM REINSURANCE CLAIM ANALYST Plan of Treatment Health Maintenance Due Date Last Done Comments Pneumococcal PPSV23/PCV13 65 + Years / Low and Medium Risk (1 of 4 - PCV) 2014 Influenza Vaccine (#1) [address] Cutting Saw Operator Relationship Specialty Start Date End Date Willam Tee MD [address] [place] [phone] PCP - General Family Medicine 08/01/19
--- OUTSIDE RECORDS SUMMARY | 2024-03-31 09:51 | XMS_ITS | Clinical Summary ---
Author Organization [facility] Address [facility] [place] [address] Care Team Providers Care Course Developer Name Role Phone Willam Tee MD Primary Care Provider [phone] Allergies No known active allergies Medications losartan-hydroc hlorothiazide 100-25 MG tablet TK 1 T PO QD 2 06/17/2018 Active ALPRAZolam 0.25 MG tablet Take 0.25 mg by mouth 2 (two) times daily. 0 08/01/2018 Active glimepiride 1 MG tablet Take 1 mg by mouth daily. 0 05/13/2018 Active metFORMIN 500 MG tablet 0 07/13/2018 Active omeprazole 20 MG capsule TK 1 C PO QD AC PRN 0 08/01/2018 Active rosuvastatin 20 MG tablet Take 20 mg by mouth daily. 0 06/18/2018 Active albuterol sulfate HFA (VENTOLIN HFA) 108 (90 Base) MCG/ACT inhaler INL 1 PUFF PO Q 4 TO 6 H PRF SOB OR WHZ 11/01/2019 Active carvedilol 6.25 MG tablet Take 6.25 mg by mouth every 12 (twelve) hours. 05/17/2020 Active montelukast 10 MG tablet TK 1 T PO D 06/16/2019 Active NIFEdipine ER 30 MG 24 hr tablet TAKE 1 TABLET(30 MG) BY MOUTH 1 TIME EACH DAY 02/16/2020 Active aspirin 81 MG chewable tablet Chew 1 tablet (81 mg total) by mouth daily. Active Eluxadoline (VIBERZI) 75 MG Tab Take 0.5 tablets by mouth daily. Active Cyanocobalamin (VITAMIN B-12) 50 MCG Tab Take 1 tablet by mouth nightly. Active Ferrous Sulfate (IRON) 325 (65 Fe) MG tablet Take 325 mg by mouth daily with breakfast. Active tiZANidine (ZANAFLEX) 2 MG tablet Take 1 tablet (2 mg total) by mouth 3 (three) times daily as needed. 06/30/2022 Active zolpidem (AMBIEN) 5 MG tablet Take 1 tablet (5 mg total) by mouth daily as needed for Sleep. Active furosemide (LASIX) 20 MG tablet Take 1 tablet (20 mg total) by mouth daily as needed. Active meloxicam (MOBIC) 15 MG tablet Take 1 tablet (15 mg total) by mouth 2 (two) times daily as needed. Active aspirin 81 MG chewable tablet Chew 1 tablet (81 mg total) by mouth daily. 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 ([facility]) 05/29/2020 Social History Tobacco Use Types Packs/Day Years Used Date Smoking Tobacco: Former Smokeless Tobacco: Never Comments No Sex and Gender Information Value Date Recorded Sex Assigned at Not on file Legal Sex Female 2:42 PM CDT Gender Identity Female 05/15/2021 10:07 AM CDT Sexual Orientation Straight 05/15/2021 10 :07 AM CDT Last Filed Vital Signs Vital Sign Reading Time Taken Comments Blood Pressure 181/74 12/22/2022 8:16 AM MANAGER FIXED INCOME Pulse 58 12/22/2022 8:16 AM MANAGER FIXED INCOME Temperature - - Respiratory Rate - - Oxygen Saturation 98% 12/22/2022 8:16 AM MANAGER FIXED INCOME Inhaled Oxygen Concentration - - Weight 97.3 kg (214 lb 6.4 oz) 12/22/2022 8:16 A M MANAGER FIXED INCOME Height 162.6 cm (5' 4 ) 12/19/2021 9:15 AM MANAGER FIXED INCOME Body Mass Index 36.8 12/19/2021 9:15 AM MANAGER FIXED INCOME Plan of Treatment Upcoming Encounters Date Type Department Care Team (Late st Contact Info) Description 12/26/2024 8:00 AM MANAGER FIXED INCOME Appointment [facility] Radiation Oncology [address] [place] [address] Raghu Helm MD [address] [place] [address] [address] [place] [address] Health Maintenance Due Date Last Done Comments Colorectal Cancer Screening Colonoscopy (10 Years) 1949 Hepatitis C 09/04/1967 DTaP, Tdap and Td Vaccines (1 - Tdap) 1968 Mammogram Screening 1989 Zoster Vaccines (1 of 2) 09/04/1999 Annual Medicare Wellness Visit 2014 Dexa Scan (General) 2014 Pneumococcal Vaccine: 65+ Years (2 of 2 - PPSV23 or PCV20) 11/15/2017 11/15/2016 COVID-19 Vaccine (2 - season) 2023 04/28/2020 Influenza Adult (#1) 2023 12/09/2021, 11/06/2019, 10/18/2018, Additional history exists RSV Immunization or 60+ Years (1 - 1-dose 75+ series) 2024 Meningococcal B Vaccine Aged Out No l onger eligible based on patient's age to complete this topic Meningococcal Vaccine Aged Out No kirk deric eligible based on patient's age to complete this topic RSV Immunizations Under 20 Months Aged Out No longer eligible based on patient's age to complete [place] [id number] [facility] Care Teams Course Developer Relationship Specialty Start Date End Date Willam Tee MD [address] [place] [address] PCP - General FAMILY PRACTICE 08/03/18
--- OUTSIDE RECORDS SUMMARY | 2024-03-31 09:52 | XMS_ITS | Patient Health Summary ---
Author Organization [facility] Address [address] [place] [address] Care Team Providers Care Assembly Line Inspector Name Role Phone Willam Tee MD Primary Care Provider [phone] Note from [facility],non-owned Affiliates and Associated Physician Practices is amultiple site organization consisting of ambulatory clinics and hospital sitesin [place], [place], [place] and [place]. This disclosure is being madepursuant to the Care Everywhere program and may not contain all information available regarding this patient. Last updated 17.[facility] Allergies No known active allergies Medications * Be aware that medications may not be up to date on this document. Alwaysverify current medications with the patient. * NIFEdipine CR 24hr (ADALAT CC) 30 MG tablet(Started 02/16/2020) Take 1 (one) tablet by mouth once daily * carvedilol (COREG) 6.25 MG tablet(Started 05/17/2020) Take 1 (one) tablet by mouth every 12 hours * losartan-hydroCHLOROthiazide (HYZAAR) 100-25 MG tablet(Started 06/29/2021) Take 1 (one) tablet by mouth once daily * omeprazole (PRILOSEC) 20 MG capsule(Started 07/26/2021) Take 1 (one) capsule by mouth * metFORMIN (GLUCOPHAGE) 500 MG tablet(Started 07/19/2021) Take 2 (two) tablets by mouth 2 times daily * aspirin EC (ECOTRIN) 81 MG tablet Take 1 (one) tablet by mouth once daily * glimepiride (AMARYL) 1 MG tablet(Started 07/19/2021) Take 1 (one) tablet by mouth 2 times daily * rosuvastatin (CRESTOR) 20 MG tablet(Started 07/19/2021) Take 1 (one) tablet by mouth once daily * montelukast (SINGULAIR) 10 MG tablet(Started 07/19/2021) Take 1 (one) tablet by mouth as needed * ALPRAZolam (XANAX) 0.25 MG tablet(Started 02/05/2021) Take 1 (one) tablet by mouth once daily * meloxicam (MOBIC) 7.5 MG tablet(Started 09/13/2020) Take 1 (one) tablet by mouth once daily * furosemide (LASIX) 20 MG tablet Take 1 (one) tablet by mouth once daily * zolpidem (AMBIEN) 5 MG tablet Take 1 (one) tablet by mouth once daily as needed * benzonatate (TESSALON) 200 MG capsule(Started 11/26/2020) Take 1 (one) capsule by mouth as needed for cough * Cyanocobalamin 1000 MCG Take 1 (one) tablet by mouth once daily * SYMBICORT 160-4.5 MCG/ACT inhaler(Started 11/26/2020) once daily * Multiple Vitamins-Minerals (PreserVision AREDS 2) capsule Take 2 (two) capsules by mouth 2 times daily * albuterol HFA (Proventil; Ventolin; Proair) 108 (90 Base) MCG/ACT inhaler Inhale 2 (two) puffs by mouth every 6 hours as needed * Paxlovid, 150/100,(Started 09/29/2021) Take 1 (one) tablet by mouth 2 times daily * oseltamivir (Tamiflu) 75 MG capsule(Started 01/22/2022) Take 1 (one) capsule by mouth as directed * tiZANidine (Zanaflex) 2 MG tablet(Started 12/09/2021) Take 1 (one) tablet by mouth 3 times daily as needed For muscle spasms. Active Problems No known active problems Immunizations * Covid Moderna primary monovalent 12+ yr 0.5mL(Given 04/28/2020) * FLU VACCINE QUAD IIV4 SPLIT 0.25 ML IM(Given 11/06/2019) * INFLUENZA VACCINE(Given 12/09/2021) Social History Tobacco Use Types Packs/Day Years Used Date Smoking Tobacco: Never Smokeless Tobacco: Never Tobacco Cessation:Counseling Given: Not Answered Alcohol Use Standard Drinks/Week Comments Never 0 (1 standard drink = 0.6 oz pur e alcohol) Sex and Gender Information Value Date Recorded Sex Assigned at Not on file Gender Identity Not on file Sexual Orientation Not on file Last Filed Vital Signs Vital Sign Reading Time Taken Comments Blood Pressure 189/90 01/30/2022 8:53 AM ESL PROFESSOR Pulse 76 01/30/2022 8:53 AM ESL PROFESSOR Temperature - - Respiratory Rate - - Oxygen Saturation - - Inhaled Oxygen Concentration - - Weight 93.4 kg (206 lb) 01/30/2022 8:53 AM ESL PROFESSOR Height 162.6 cm (5' 4 ) 01/30/2022 8:53 AM ESL PROFESSOR Body Mass Index 35.36 01/30/2022 8:53 AM ESL PROFESSOR Procedures * NM FINE NEEDLE ASPIRATION(Performed 01/30/2022) Performed for Parotid cyst * FINE NEEDLE ASPIRATION (STL)(Performed 01/30/2022) Performed for Parotid cyst Results * NM FINE NEEDLE ASPIRATION (01/30/2022 11:44 AM ESL PROFESSOR) Narrative Ellis Rico MD - 01/30/2022 11:44 AM ESL PROFESSOR Ellis Rico MD 01/30/2022 11:45 AM Procedure note Procedure: Fine-needle aspiration Indication:parotid mass Site: left parotid Details: The lesion was visualized with an ultrasound probe. A 25-gauge needle was used to aspirate the lesion under direct visualization with attention directed towards the capsule. A total of 2 passes were made. There was minimal bleeding. The patient tolerated this very well. Ellis Rico MD PROCEDURE/MINOR SURG ICAL ORDERABLES * FINE NEEDLE ASPIRATION (STL) (01/30/2022 9:50 AM ESL PROFESSOR) Case Report Medical Cytology Report Case: [id number] Authorizing Provider: Ellis Rico MD Collected: 01/30/2022 09:50 AM Ordering Location: [facility] Otolaryngology Received: 01/30/2022 10:20 AM Pathologist: Moe Youngblood MD Specimen: Neck, Left parotid 02/03/2022 10:28 AM ESL PROFESSOR [facility] Specimen Adequacy Adequate cellularity for evaluation. 02/03/2022 10:28 AM ESL PROFESSOR [facility] Final Diagnosis Left parotid mass, FNA: - Paucicellular specimen: no malignant cells identified 02/03/2022 10:28 AM [facility] Gross Description 2 pap & 2 diff-quik stained slides and 1 cell block from 10cc collection fluid Specimen adequacy provided by Damon Reid Left parotid mass, us-guided fna Episode 1 Pass 1: inadequate (9:50) Episode 2 Pass 2: adequate (9:52) 02/03/2022 10:28 AM [facility] Microscopic Description Limited cellularity to support a definitive diagnosis; and the cell block is inadequate. 02/03/2022 10:28 AM [facility] Disclaimer The performance characteristics of all immunohistochemical and indirect immunofluorescence stains (if any) cited in this report were determined by the Histopathology Laboratory of [facility]. Some of these tests rely on the use of analyte-specific reagents and are subject to specific labeling requirements by the US Food and Drug Administration. Such tests were developed by the Histology Laboratory of [facility] and have not been cleared or approved by the FDA. The FDA has determined that such clearance and approval is not necessary. These tests are used for clinical purposes and should not be regarded as investigational or for research. This laboratory is certified under the Clinical Laboratory Improvement Amendments (CLIA) as qualified to perform high complexity clinical laboratory testing. This case has been personally reviewed and interpreted by the attending (teaching) pathologist. 02/03/2022 10:28 AM [facility] Embedded Images 02/03/2022 10:28 AM [facility] Pathology/Cytolo gy ENTIRE NECK / Unknown 01/30/2022 9:50 AM ESL PROFESSOR 01/30/2022 10:20 AM ESL PROFESSOR Ellis Rico MD LAB - PATHOLOGY/CYTO LOGY ORDERABLES [facility] [address] [place] [address], [facility] [phone] Care Teams Assembly Line Inspector Relationship Specialty Start Date End Date Willam Tee MD [address] [place] [address] PCP - General 06/30/21
--- OUTSIDE RECORDS SUMMARY | 2024-03-31 09:52 | XMS_ITS | Referral Summary ---
Author Organization [facility] [employer] Address [address] [place] [address] Care Team Providers Care Jewelry Estimator Name Role Phone Willam Tee MD Primary Care Provider [phone] Source Comments [facility],non-owned Affiliates and Associated Physician Practices is amultiple site organization consisting of ambulatory clinics and hospital sitesin [place], [place], [place] and [place]. This disclosure is being madepursuant to the Care Everywhere program and may not contain all information available regarding this patient. Last updated 17.[facility] [employer] Allergies No known active allergies Medications * Be aware that medications may not be up to date on this document. Alwaysverify current medications with the patient. Medication Sig Dispensed Refills Start Date End Date Status NIFEdipine CR 24hr (ADALAT CC) 30 MG tablet Take 1 (one) tablet by mouth once daily 02/16/2020 Active carvedilol (COREG) 6.25 MG tablet Take 1 (one) tablet by mouth every 12 hours 05/17/2020 Active losartan-hydroCHLOROt hiazide (HYZAAR) 100-25 MG tablet Take 1 (one) tablet by mouth once daily 06/29/2021 Active omeprazole (PRILOSEC) 20 MG capsule Take 1 (one) capsule by mouth 07/26/2021 Active metFORMIN (GLUCOPHAGE) 500 MG tablet Take 2 (two) tablets by mouth 2 times daily 07/19/2021 Active aspirin EC (ECOTRIN) 81 MG tablet Take 1 (one) tablet by mouth once daily Active glimepiride (AMARYL) 1 MG tablet Take 1 (one) tablet by mouth 2 times daily 07/19/2021 Active rosuvastatin (CRESTOR) 20 MG tablet Take 1 (one) tablet by mouth once daily 07/19/2021 Active montelukast (SINGULAIR) 10 MG tablet Take 1 (one) tablet by mouth as needed 07/19/2021 Active ALPRAZolam (XANAX) 0.25 MG tablet Take 1 (one) tablet by mouth once daily 02/05/2021 Active meloxicam (MOBIC) 7.5 MG tablet Take 1 (one) tablet by mouth once daily 09/13/2020 Active furosemide (LASIX) 20 MG tablet Take 1 (one) tablet by mouth once daily Active zolpidem (AMBIEN) 5 MG tablet Take 1 (one) tablet by mouth once daily as needed Active benzonatate (TESSALON) 200 MG capsule Take 1 (one) capsule by mouth as needed for cough 11/26/2020 Active Cyanocobalamin 1000 MCG Take 1 (one) tablet by mouth once daily Active SYMBICORT 160-4.5 MCG/ACT inhaler once daily 11/26/2020 Active Multiple Vitamins-Minerals (PreserVision AREDS 2) capsule Take 2 (two) capsules by mouth 2 times daily Active albuterol HFA (Proventil; Ventolin; Proair) 108 (90 Base) MCG/ACT inhaler Inhale 2 (two) puffs by mouth every 6 hours as needed Active Paxlovid, 150/100, Take 1 (one) tablet by mouth 2 times daily 09/29/2021 Active oseltamivir (Tamiflu) 75 MG capsule Take 1 (one) capsule by mouth as directed 01/22/2022 Active tiZANidine (Zanaflex) 2 MG tablet Take 1 (one) tablet by mouth 3 times daily as needed For muscle spasms. 12/09/2021 Active Active Problems No known active problems Immunizations Name Administration Dates Next Due Covid Moderna primary monovalent 12+ yr 0.5mL FLU VACCINE QUAD IIV4 SPLIT 0.25 ML IM 0 INFLUENZA VACCINE 12/09/2021 Social History Tobacco Use Types Packs/Day Years [...] Comments Blood Pressure 189/90 01/30/2022 8:53 AM AUTOMOTIVE DRIVABILITY TECHNICIAN Pulse 76 01/30/2022 8:53 AM AUTOMOTIVE DRIVABILITY TECHNICIAN Temperature - - Respiratory Rate - - Oxygen Saturation - - Inhaled Oxygen Concentration - - Weight 93.4 kg (206 lb) 01/30/2022 8:53 AM AUTOMOTIVE DRIVABILITY TECHNICIAN Height 162.6 cm (5' 4 ) 01/30/2022 8:53 AM AUTOMOTIVE DRIVABILITY TECHNICIAN Body Mass Index 35.36 01/30/2022 8:53 AM AUTOMOTIVE DRIVABILITY TECHNICIAN Plan of Treatment Not on file Care Teams Jewelry Estimator Relationship Specialty Start Date End Date Willam Tee MD [address] [place] [address] PCP - General 06/30/21
--- OUTSIDE RECORDS SUMMARY | 2024-03-31 09:52 | XMS_ITS | Clinical Summary ---
Author Organization [facility] Address [address] [place] [address] Care Team Providers Care Mandate Retail Service Merchandiser Name Role Phone Willam Tee MD Primary Care Provider [phone] Allergies No known active allergies Medications metoprolol tartrate (LOPRESSOR) 100 mg tablet TAKE 2 TABLETS BY MOUTH TWICE A DAY 3 8 Active rosuvastatin (CRESTOR) 20 mg tablet TAKE 1 TABLET BY MOUTH EVERY DAY 0 8 Active metFORMIN (GLUCOPHAGE) 500 mg tablet Take 500 mg by mouth 2 times daily. Active losartan-hydroCH LOROthiazide (HYZAAR) 100-25 mg tablet TAKE 1 TABLET BY MOUTH EVERY DAY 99 8 Active amLODIPine (NORVASC) 10 mg tablet TAKE 1 TABLET BY MOUTH EVERY DAY 3 8 Active aspirin (ECOTRIN EC) 81 mg Tablet, Delayed Release (E.C.) Take 81 mg by mouth daily. Active meloxicam (MOBIC) 15 mg tablet Take 15 mg by mouth daily. Active furosemide (LASIX) 20 mg tablet Take 20 mg by mouth daily. Active zolpidem (AMBIEN) 5 mg tablet Take 5 mg by mouth nightly as needed for Insomnia. Active glimepiride (AMARYL) 1 mg tablet Take 1 mg by mouth daily with breakfast. Active omeprazole (PriLOSEC) 20 mg Capsule, Delayed Release(E.C.) Take 20 mg by mouth daily. Active amoxicillin (AMOXIL) 875 mg tablet Take 875 mg by mouth every 12 hours. Active portable oxygen 2 liters at hs Active ALPRAZolam (XANAX) 0.25 mg tablet Take 0.25 mg by mouth nightly as needed for Anxiety. Active BENZONATATE ORAL Take by mouth. Active albuterol HFA 90 mcg inhaler INL 1 PUFF PO Q 4 TO 6 H PRF SOB OR WHZ 0 Active VENTOLIN HFA 90 mcg/actuation inhaler INL 1 PUFF PO Q 4 TO 6 H PRF SOB OR WHZ 0 Active ketoconazole (NIZORAL) 2 % Cream FAUSTO EXT AA ON THE FACE BID 0 Active montelukast (SINGULAIR) 10 mg tablet TK 1 T PO D 0 Active carvediloL (COREG) 6.25 mg tablet Take 6.25 mg by mouth every 12 hours. 1 Active NIFEdipine (ADALAT CC) 30 mg Extended Release tablet TAKE 1 TABLET(30 MG) BY MOUTH 1 TIME EACH DAY 1 Active cyanocobalamin 1,000 mcg Tablet Take 1,000 mcg by mouth daily. Active ferrous sulfate 325 mg (65 mg iron) tablet Take 325 mg by mouth daily. Active budesonide-formo teroL (SYMBICORT) 80-4.5 mcg/actuation HFA Aerosol Inhaler Take 2 Puffs by inhalation 2 times daily. Active Vit C-Vit S-Eqcpuv-SeVq-Marley tein (PRESERVISION) 226 mg-200 unit -5 mg-0.8 mg Capsule Take 1 Capsule by mouth 2 times daily. Active Clotrimazole (MYCELEX) 10 mg Jovana 2 Active cefdinir (OMNICEF) 300 mg capsule Take 300 mg by mouth every 12 hours. 2 Active dapagliflozin propanediol (Farxiga) 10 mg Tablet Take 10 mg by mouth daily. Active Active Problems Problem Noted Date Diagnosed Date Vitamin B12 deficiency anemia 11/28/2019 DM (diabetes mellitus), type 2 06/07/2017 Brain tumor 06/07/2017 HTN (hypertension), benign 06/07/2017 COPD (chronic obstructive pulmonary disease) H/O: hysterectomy 06/07/2017 Leukocytosis (leucocytosis) 06/07/2017 Encounters Date Type Department Care Team Description 03/01/2024 External Device Data STL ABSTRACTION Provider, Abstract 02/29/2024 External Device Data STL ABSTRACTION Provider, Abstract 02/22/2024 External Device Data STL ABSTRACTION Provider, Abstract from Last 3 Months Family History Medical History Relation Name Comments Anemia Father Asthma Father Diabetes Father Heart Disease Father High Cholesterol Father Hypertension Father Liver Disease Father Lung Cancer Father Osteoporosis Father Respiratory Disease Father Anemia Mother Asthma Mother Breast Cancer Mother Depression Mother Diabetes Mother Heart Disease Mother Hypertension Mother Osteoporosis Mother Ovarian Cancer Mother Diabetes Sister Asthma Son Diabetes Son Hypertension Son Osteoporosis Son Relation Name Status Comments Father Mother Sister Son Social History Tobacco Use Types Packs/Day Years Used Date Smoking Tobacco: Never Tobacco Cessation:Counseling Given: Not Answered Alcohol Use Standard Drinks/Week Comments No 0 (1 standard drink = 0.6 oz pur e alcohol) Comments No Sex and Gender Information Value Date Recorded Sex Assigned at Not on file Legal Sex Female 3:16 PM CDT Gender Identity Not on file Sexual Orientation Not on file Last Filed Vital Signs Vital Sign Reading Time Taken Comments Blood Pressure 192/76 11/26/2023 8:35 AM CDT Pulse 58 11/26/2023 8:27 AM CDT Temperature 36.3 C (97.3 F) 11/26/2023 8:27 AM CDT Respiratory Rate 14 11/26/2023 8:27 AM CDT Oxygen Saturation 97% 11/26/2023 8:27 AM CDT Inhaled Oxygen Concentration - - Weight 93.6 kg (206 lb 6.4 oz) 11/26/2023 8:27 A M CDT Height 162.6 cm (5' 4 ) 11/19/2021 10:33 AM CDT Body Mass Index 35.43 11/19/2021 10:33 AM CDT Plan of Treatment Upcoming Encounters Date Type Department Care Team (Late st Contact Info) Description 05/26/2024 8:45 AM CDT Office Visit [facility] Oncology and Hematology - [place] [address] [place] [address] Sang Kruger MD [address] [facility] [address] [place] [address] Health Maintenance Due Date Last Done Comments DIABETES ANNUAL FOOT EXAM 09/04/1967 DIABETES MICROALBUMIN ANNUAL SCREEN 09/04/1967 LDL CHOLESTEROL ANNUAL 09/04/1967 DTAP/TDAP/TD VACCINES (1 - Tdap) 1968 PNEUMOCOCCAL VACCINE 65+ YEA RS (1 of 2 - PCV) 1968 BREAST CANCER SCREENING 1989 FIT-DNA Q 3 years 1994 FIT/FOBT Q 1 year 1994 Flex Sig/CT Colonography Q 5 years 1994 ZOSTER VACCINE (1 of 2) 09/04/1999 RSV VACCINE (60+ or ) (1 - Risk 60-74 years 1-dose series) 2009 INFLUENZA VACCINE (#1) 2023 11/06/2019 DIABETES ANNUAL RETINAL EXAM 03/12/202403/2023, 02/11/2022, 10/28/2020, Additional history exists DIABETES HBA1C Q 6 MONTHS 03/23/20242023, 06/18/2023, 03/16/2023, Additional history exists COLORECTAL SCREENING 08/21/2031 08/20/2021, 08/20/2021, 05/09/2015 Colorectal Cancer Screening 08/21/2031 OSTEOPOROSIS SCREENING Completed 05/08/2019 Insurance MEDICARE PART A AND B [facility] MEDICARE PART A AND B [facility] Care Teams Mandate Retail Service Merchandiser Relationship Specialty Start Date End Date Willam Tee MD [address] [place] [id number] PCP - General Family Practice 06/07/17
--- OUTSIDE RECORDS SUMMARY | 2024-03-31 09:52 | XMS_ITS | Clinical Summary ---
Author Organization [facility] Address [address] [place] [address] Care Team Providers Care Enamel Machine Operator Name Role Phone Willam Tee MD Primary Care Provider [phone] Source Comments [facility]Picture,non-owned Affiliates and Associated Physician Practices is amultiple site organization consisting of ambulatory clinics and hospital sitesin [place], [place], [place] and [place]. This disclosure is being madepursuant to the Care Everywhere program and may not contain all information available regarding this patient. Last updated 17.[facility]Picture Allergies No known active allergies Medications * [...] Comments Blood Pressure 189/90 01/30/2022 8:53 AM SENIOR EXECUTIVE COMPENSATION ANALYST Pulse 76 01/30/2022 8:53 AM SENIOR EXECUTIVE COMPENSATION ANALYST Temperature - - Respiratory Rate - - Oxygen Saturation - - Inhaled Oxygen Concentration - - Weight 93.4 kg (206 lb) 01/30/2022 8:53 AM SENIOR EXECUTIVE COMPENSATION ANALYST Height 162.6 cm (5' 4 ) 01/30/2022 8:53 AM SENIOR EXECUTIVE COMPENSATION ANALYST Body Mass Index 35.36 01/30/2022 8:53 AM SENIOR EXECUTIVE COMPENSATION ANALYST Plan of Treatment Health Maintenance Due Date Last Done Comments BONE DENSITY TESTING 1950 COLOGUARD (AGES 45-75) - COL ON CA SCREENING 1949 COLON MONITORING 1949 COLONOSCOPY - COLON CA SCREENING 1949 CT COLONOGRAPHY - COLON CA SCREENING 1950 Colorectal Cancer Screening 1949 FIT - COLON CA SCREENING 1949 FLEX SIG - COLON CA SCREENING 1949 MAMMOGRAM 1950 MEDICARE AWV 12 MONTHS 1949 HEPATITIS C SCREENING 08/30/1967 DTAP/TDAP/TD VACCINES (1 - Tdap) 1968 PNEUMOCOCCAL VACCINE 50+ (1 of 1 - PCV) 09/04/1999 ZOSTER VACCINE (1 of 2) 09/04/1999 COVID-19 VACCINE (2 - 2023-2 5 season) 2023 04/28/2020 INFLUENZA VACCINE (#1) 2023 2, 11/06/2019 DEPRESSION SCREENING 02/09/2024 Respiratory Syncytial Virus (RSV) Vaccine Pt: or over 60 yrs (1 - 1-dose 75+ series) 2024 HEPATITIS B VACCINE Aged Out No longe r eligible based on patient's age to complete this topic HIB VACCINE Aged Out No longer eligi ble based on patient's age to complete this topic HPV VACCINE Aged Out No longer eligi ble based on patient's age to complete this topic MENINGOCOCCAL (Group B) VACCINE Aged Out No longer eligible b ased on patient's age to complete this topic MENINGOCOCCAL VACCINE Aged Out No kirk deric eligible based on patient's age to complete this topic Care Teams Enamel Machine Operator Relationship Specialty Start Date End Date Willam Tee MD [address] [place] [address] PCP - General 06/30/21
== END 2024-03-31 09:05 | disposition home or self-care (01) ==
PROVIDERS: PCP Family Medicine; Visit Provider Physician Assistant Medical
DX: S49.91XA Unspecified injury of right shoulder and upper arm, initial encounter (principal); X58.XXXA Exposure to other specified factors, initial encounter
CPT/HCPCS: 73030

== ENCOUNTER 2024-04-20 12:25 | Outpatient (CLI) | payer MEDICARE, SELFPAY ==
--- NOTE | ~2024-04-20 | MR_ITS ---
EXAMINATION: MR humerus RT wo con DATE: 04/20/2024 13:40 INDICATION: Unspecified injury of right shoulder and upper arm. TECHNIQUE: Magnetic resonance imaging (MRI) of the right humerus was performed without intravenous co ntrast. COMPARISON: Right shoulder radiographs 03/31/2024 FINDINGS: Alignment is normal. No fracture. There is a complete tear of proximal biceps tendon. There is fluid around proximal biceps muscle belly. IMPRESSION: 1. Complete tear of proximal biceps tendon with fluid around proximal biceps muscle belly. Reviewed, dictated and finalized at location B. IMPRESSION: 1. Complete tear of proximal biceps tendon with fluid around proximal biceps mu scle belly.
--- NOTE | ~2024-04-20 | MR_ITS ---
EXAMINATION: MR shoulder RT wo con DATE: 04/20/2024 13:40 INDICATION: Unspecified injury of right shoulder. Right upper arm pain. TECHNIQUE: Magnetic resonance imaging (MRI) of the right shoulder was performed without intravenous c ontrast. COMPARISON: Right shoulder radiographs 03/31/2024 FINDINGS: Coracoacromial arch: The acromion undersurface is curved in morphology (type II). There is severe acromioclavicular joint osteoarthritis including inferiorly directed osteophytes. There is moderate subacromial/subdeltoid bu rsitis. Rotator cuff: There is severe supraspinatus and infraspinatus tendinopathy with bursal sided partial tear of the co njoined portion of the tendon measuring 4 mm anterior to posterior by 8 mm proximal to distal by 50% tendon thickness. Teres minor tendon is normal. There is moderate subscapularis tendinopathy. Biceps tendon and glenoid labrum: Biceps tendon is in bicipital groove. There is a complete tear of proximal biceps tendon. Fluid: There is a small glenohumeral joint effusion. Bones/cartilage: There is partial thickness cartilage loss of glenoid and humeral head. Osteophytes are noted. IMPRESSION: 1. Severe rotator cuff tendinopathy with bursal sided partial thickness tear of the conjoined portion of supraspinatus and infraspinatus tendons. 2. Moderate glenohumeral joint chondrosis. 3. Severe acromioclavicular joint osteoarthritis. 4. Complete tear of proximal biceps tendon. 5. Small glenohumeral joint effusion. 6. Moderate subacromial/subdeltoid bursitis. Reviewed, dictated and finalized at location B.
== END 2024-04-20 12:26 | disposition home or self-care (01) ==
LOC: GOSHIMG 12:27
PROVIDERS: PCP Physician Assistant Medical; Visit Provider Physician Assistant Medical
DX: S49.91XA Unspecified injury of right shoulder and upper arm, initial encounter (principal); X58.XXXA Exposure to other specified factors, initial encounter
CPT/HCPCS: 73218; 73221

== ENCOUNTER 2024-05-16 10:10 | Outpatient (CLI) | payer MEDICARE, SELFPAY ==
[2024-05-16 10:27] LABS: Basophils Absolute Auto 0.1 K/mm3 (0.0-0.1); Basophils Percent Auto 0.6 % (0.2-1.2); Eosinophils Absolute Auto 0.2 K/mm3 (0-0.3); Eosinophils Percent Auto 2.1 % (0-4.4); Hematocrit 36.7 % (37.0-47.0); Hemoglobin 11.7 g/dL (12.0-15.0); Immature Granulocyte Absolute 0.03 K/mm3 (0.00-0.031); Immature Granulocyte Percent A 0.3 % (0-0.5); Lymphocytes Absolute Auto 2.18 K/mm3 (0.9-3.2); Lymphocytes Percent Auto 20.2 % (18.3-44.2); Mean Corpuscular HGB Conc 31.9 g/dl (32-36); Mean Corpuscular Hemoglobin 30.2 pg (26-34); Mean Corpuscular Volume 94.8 fl (80-100); Mean Platelet Volume 8.6 fl (7.4-10.4); Monocytes Absolute Auto 0.9 K/mm3 (0.1-0.6); Monocytes Percent Auto 8.3 % (2.6-8.5); Neutrophils Absolute Auto 7.4 K/mm3 (1.3-6.7); Neutrophils Percent Auto 68.5 % (45.5-73.1); Platelet Count Result 250 k/mm3 (150-375); Red Blood Count 3.87 M/mm3 (4.2-5.4); Red Cell Distribution Width 13.8 % (11.5-14.5); White Blood Count 10.8 K/mm3 (4.5-10.0)
--- OUTSIDE RECORDS SUMMARY | 2024-05-16 11:20 | XMS_ITS | Clinical Summary ---
Author Organization [facility] Address [address] [place] [address] Care Team Providers Care Manager File Name Role Phone Willam Tee MD Primary Care Provider [phone] Source Comments [facility],non-owned Affiliates and Associated Physician Practices is amultiple site organization consisting of ambulatory clinics and hospital sitesin [place], [place], [place] and [place]. This disclosure is being madepursuant to the Care Everywhere program and may not contain all information available regarding this patient. Last updated 17.[facility] Allergies No known active allergies Medications * [...] Comments Blood Pressure 189/90 01/30/2022 8:53 AM MATERIALS BUYER Pulse 76 01/30/2022 8:53 AM MATERIALS BUYER Temperature - - Respiratory Rate - - Oxygen Saturation - - Inhaled Oxygen Concentration - - Weight 93.4 kg (206 lb) 01/30/2022 8:53 AM MATERIALS BUYER Height 162.6 cm (5' 4 ) 01/30/2022 8:53 AM MATERIALS BUYER Body Mass Index 35.36 01/30/2022 8:53 AM MATERIALS BUYER Plan of Treatment Health Maintenance Due Date [...] complete this topic MENINGOCOCCAL (Group B) VACCINE SHARED DECISION-MAKING Aged Out No longer eligible based on patient's age to complete this topic MENINGOCOCCAL GROUPS A/C/Y/W VACCINE Aged Out No longer eligible b ased on patient's age to complete this topic Care Teams Manager File Relationship Specialty Start Date End Date Willam Tee MD [address] [place] [address] PCP - General 06/30/21
--- OUTSIDE RECORDS SUMMARY | 2024-05-16 11:20 | XMS_ITS | Clinical Summary ---
Author Organization [facility] Address [address] [place] [address] Phone Care Team Providers Care Border Measurer Name Role Phone Willam Tee MD Primary Care Provider [phone] Allergies No known active allergies Medications Medication [...] Comments Blood Pressure 110/64 03/31/2021 9:44 AM PLANT ASSIGNER Pulse - - Temperature 36.6 C (97.9 F) 03/31/2021 9:44 AM PLANT ASSIGNER Respiratory Rate 18 03/31/2021 9:44 AM PLANT ASSIGNER Oxygen Saturation - - Inhaled Oxygen Concentration - - Weight 96.2 kg (212 lb) 03/31/2021 9:44 AM PLANT ASSIGNER Height 162.6 cm (5' 4 ) 03/31/2021 9:44 AM PLANT ASSIGNER Body Mass Index 36.39 03/31/2021 9:44 AM PLANT ASSIGNER Plan of Treatment Health Maintenance Due Date Last Done Comments Pneumococcal PPSV23/PCV13 65 + Years / Low and Medium Risk (1 of 4 - PCV) 2014 Influenza Vaccine (Season Ended) 2024 Care Teams Border Measurer Relationship Specialty Start Date End Date Willam Tee MD [address] [place] [id number] PCP - General Family Medicine 08/01/19
--- OUTSIDE RECORDS SUMMARY | 2024-05-16 11:20 | XMS_ITS | Clinical Summary ---
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 ([facility]/HCC [facility]) 05/29/2020 Social History Tobacco Use Types Packs/Day [...] Comments Blood Pressure 181/74 12/22/2022 8:16 AM STAFF SUBMARINE WARFARE OFFICER Pulse 58 12/22/2022 8:16 AM STAFF SUBMARINE WARFARE OFFICER Temperature - - Respiratory Rate - - Oxygen Saturation 98% 12/22/2022 8:16 AM STAFF SUBMARINE WARFARE OFFICER Inhaled Oxygen Concentration - - Weight 97.3 kg (214 lb 6.4 oz) 12/22/2022 8:16 A M STAFF SUBMARINE WARFARE OFFICER Height 162.6 cm (5' 4 ) 12/19/2021 9:15 AM STAFF SUBMARINE WARFARE OFFICER Body Mass Index 36.8 12/19/2021 9:15 AM STAFF SUBMARINE WARFARE OFFICER Plan of Treatment Upcoming Encounters Date Type Department Care Team (Late st Contact Info) Description 12/26/2024 8:00 AM STAFF SUBMARINE WARFARE OFFICER Appointment [facility] [address] [place] [address] Raghu Helm MD [address] [place] [address] [address] [place] [address] Health Maintenance Due Date Last Done Comments Colorectal Cancer Screening Colonoscopy (10 Years) 1949 Hepatitis C 09/04/1967 DTaP, Tdap and Td Vaccines ( 1 - Tdap) 1968 Mammogram Screening 1989 Zoster Vaccines (1 of 2) 09/04/1999 Annual Medicare Wellness Visit 2014 Dexa Scan (General) 2014 Pneumococcal Vaccine: 65+ Ye ars (2 of 2 - PPSV23 or PCV20) 11/15/2017 11/15/2016 COVID-19 Vaccine (2 - 2023-2 5 season) 2023 04/28/2020 RSV Immunization or 60+ Years (1 - [...] [place] this [place] [id number] [facility] Care Teams Heel Seat Fitter Machine Relationship Specialty Start Date End Date Willam Tee MD [address] [address] PCP - General FAMILY PRACTICE 08/03/18
--- OUTSIDE RECORDS SUMMARY | 2024-05-16 11:20 | XMS_ITS | Clinical Summary ---
Author Organization [facility] Address [address] [place] [address] Care Team Providers Care Aeronautical Inspector Name Role Phone Willam Tee MD Primary Care Provider Allergies No known active allergies Medications metoprolol [...] inhalation 2 times daily. Active Vit C-Vit V-Jtucqs-SrLs-Marley tein (PRESERVISION) 226 mg-200 unit -5 mg-0.8 [...] Encounters Date Type Department Care Team Description 04/12/2024 External Device Data STL ABSTRACTION Provider, Abstract 03/01/2024 External Device Data STL ABSTRACTION Provider, [...] Description 05/26/2024 8:45 AM CDT Office Visit [facility] Oncology and Hematology - [place] [address] [place] [address] Sang Kruger MD [address] [place] [address] Health Maintenance Due Date Last Done Comments DIABETES ANNUAL FOOT EXAM 09/04/1967 DIABETES MICROALBUMIN ANNUAL SCREEN 09/04/1967 LDL CHOLESTEROL ANNUAL 09/04/1967 DTAP/TDAP/TD VACCINES (1 - Tdap) 1968 PNEUMOCOCCAL VACCINE 50+ YEA RS (1 of 2 - PCV) 1968 Traditional Medicare (ACO) A nnual Wellness Visit 1968 FIT-DNA Q 3 years 1994 FIT/FOBT Q 1 year 1994 Flex Sig/CT Colonography Q 5 years 1994 ZOSTER VACCINE (1 of 2) 09/04/1999 RSV VACCINE (60+ or ) (1 - Risk 60-74 years 1-dose series) 2009 INFLUENZA VACCINE (#1) 2023 11/06/2019 DIABETES ANNUAL RETINAL EXAM 03/12/202403/2023, 02/11/2022, 10/28/2020, Additional history exists DIABETES HBA1C Q 6 MONTHS 03/23/20242023, 06/18/2023, 03/16/2023, Additional history exists BREAST CANCER SCREENING 10/28/2024 10/29/19 24, 10/29/2023, 08/08/2021, Additional history exists COLORECTAL SCREENING 08/21/2031 08/20/2021, 08/20/2021, 05/09/2015 Colorectal Cancer Screening 08/21/2031 OSTEOPOROSIS SCREENING Completed 05/08/2019 Insurance [address] [place] [id number] MEDICARE PART A AND B [facility] SUPP MEDICARE PART A AND B [facility] Care Teams Aeronautical Inspector Relationship Specialty Start Date End Date Willam Tee MD [address] [place] [phone] PCP - General Family Practice 06/07/17
[2024-05-16 12:10] LABS: Iron 66 ug/dL (37-170)
[2024-05-16 12:11] LABS: Anion Gap 9 mmol/L (4-12); Blood Urea Nitrogen 31 mg/dL (7-17); Carbon Dioxide 30 mmol/L (22-30); Chloride 100 mmol/L (98-107); Estimated Glomerular Filt Rate 45; Glucose 100 mg/dL (65-110); Sodium 139 mmol/L (137-145)
[2024-05-16 12:22] LABS: Percent Iron Saturation 22 % (20-50)
== END 2024-05-16 10:11 | disposition home or self-care (01) ==
LOC: ANHLAB 10:12
PROVIDERS: PCP Physician Assistant Medical; Visit Provider Internal Medicine Hematology & Oncology
DX: D64.9 Anemia, unspecified (principal)
CPT/HCPCS: 36415; 80048; 82607; 82728; 83540; 83550; 85025

== ENCOUNTER 2024-07-13 09:29 | Outpatient (CLI) | payer MEDICARE, SELFPAY ==
--- OUTSIDE RECORDS SUMMARY | 2024-07-13 10:15 | XMS_ITS | Clinical Summary ---
Author Organization [facility] Address [address] [place] [address] Care Team Providers Care Sleeve Wheel Maker Name Role Phone Willam Tee MD Primary Care Provider [phone] [facility],non-owned Affiliates and Associated Physician Practices is amultiple site organization consisting of ambulatory clinics and hospital sitesin [place], [place], [place] and [place]. This disclosure is being madepursuant to the Care Everywhere program and may not contain all information available regarding this patient. Last updated 17.[facility] Allergies No known active allergies Medications * Be aware that medications may not be up to date on this document. Alwaysverify current medications with the patient. NIFEdipine CR 24hr (ADALAT CC) 30 MG tablet Take 1 (one) tablet by mouth once daily 02/16/2020 Active carvedilol (COREG) 6.25 MG tablet Take 1 (one) tablet by mouth every 12 hours 05/17/2020 Active losartan-hydroC HLOROthiazide (HYZAAR) 100-25 MG tablet Take 1 (one) [...] MCG/ACT inhaler once daily 11/26/2020 Active Multiple Vitamins-Minera ls (PreserVision AREDS 2) capsule Take 2 (two) [...] Active Problems No known active problems Immunizations Immunization Administration Dates Next Due Covid Moderna primary monovalent 12+ yr 0.5mL FLU VACCINE QUAD IIV4 SPLIT 0.25 ML IM 0 INFLUENZA VACCINE 12/09/2021 Social History Tobacco Use Types Packs/Day Years Used Date Smoking Tobacco: Never Smokeless Tobacco: Never Tobacco Cessation:Counseling Given: Not Answered Alcohol Use Standard Drinks/Week Comments Never 0 (1 standard drink = 0.6 oz pur e alcohol) Comments Unknown Sex and Gender Information Value Date Recorded Sex Assigned at Not on file Legal Sex Female 1:01 PM CDT Gender Identity Not on file Sexual Orientation Not on file Last Filed Vital Signs Vital Sign Reading Time Taken Comments Blood Pressure 189/90 01/30/2022 8:53 AM RAILROAD POLICE Pulse 76 01/30/2022 8:53 AM RAILROAD POLICE Temperature - - Respiratory Rate - - Oxygen Saturation - - Inhaled Oxygen Concentration - - Weight 93.4 kg (206 lb) 01/30/2022 8:53 AM RAILROAD POLICE Height 162.6 cm (5' 4) 01/30/2022 8:53 AM RAILROAD POLICE Body Mass Index 35.36 01/30/2022 8:53 AM RAILROAD POLICE Plan of Treatment Health Maintenance Due Date [...] (2 - 2023-2 5 season) 2023 04/28/2020 DEPRESSION SCREENING 02/09/2024 Respiratory Syncytial Virus (RSV) Vaccine Pt: or over 60 yrs (1 - 1-dose 75+ series) 2024 INFLUENZA VACCINE (Season Ended) 2024 12/09/2021, 11/06/2019 HEPATITIS B VACCINE Aged Out No longe [...] age to complete this topic Insurance MEDICARE Care Teams Sleeve Wheel Maker Relationship Specialty Start Date End Date Willam Tee MD [address] [place] [address] PCP - General 06/30/21
--- OUTSIDE RECORDS SUMMARY | 2024-07-13 10:15 | XMS_ITS | Clinical Summary ---
Author Organization [facility] Address [address] [place] [address] Care Team Providers Care Stove Installer Name Role Phone Willam Tee MD Primary [...] inhalation 2 times daily. Active Vit C-Vit K-Tkdman-OyHi-Marley tein (PRESERVISION) 226 mg-200 unit -5 mg-0.8 [...] Encounters Date Type Department Care Team Description 05/26/2024 8:45 AM CDT Office Visit [facility] Oncology and Hematology - [address] [place] [address] Sang Kruger MD Chronic anemia (Primary Dx) 05/16/2024 Orders Only [facility] Oncology and Hematology - [place] [address] [place] [address] Sang Kruger MD 04/12/2024 External Device Data STL ABSTRACTION Provider, [...] Sign Reading Time Taken Comments Blood Pressure 139/67 05/26/2024 8:30 AM CDT Pulse 54 05/26/2024 8:28 AM CDT Temperature 36.2 C (97.2 F) 05/26/2024 8:28 AM CDT Respiratory Rate 15 05/26/2024 8:28 AM CDT Oxygen Saturation 97% 05/26/2024 8:28 AM CDT Inhaled Oxygen Concentration - - Weight 94.7 kg (208 lb 12.8 oz) 05/26/2024 8:28 AM CDT Height 162.6 cm (5' 4) 11/19/2021 10:3 3 AM CDT Body Mass Index 35.84 11/19/2021 10:33 AM CDT Plan of Treatment Upcoming Encounters Date Type Department Care Team (Late st Contact Info) Description 03/09/2025 8:30 AM CARDIOLOGY SPECIALIST Office Visit [facility] Oncology and Hematology - [place] [address] [place] [phone] Sang Kruger MD [address] [facility] [address] [place] [address] Health Maintenance Due Date Last Done Comments DIABETES ANNUAL FOOT EXAM 09/04/1967 DIABETES MICROALBUMIN ANNUAL SCREEN 09/04/1967 LDL CHOLESTEROL ANNUAL 09/04/1967 DTAP/TDAP/TD VACCINES (1 - Tdap) 1968 PNEUMOCOCCAL VACCINE 50+ YEA RS (1 of 2 - PCV) 1968 FIT-DNA Q 3 years 1994 FIT/FOBT Q 1 year 1994 Flex Sig/CT Colonography Q 5 years 1994 ZOSTER VACCINE (1 of 2) 09/04/1999 RSV VACCINE (60+ or ) (1 - Risk 60-74 years 1-dose series) 2009 INFLUENZA VACCINE (#1) 2023 11/06/2019 DIABETES ANNUAL RETINAL EXAM 03/12/202403/2023, 02/11/2022, 10/28/2020, Additional history exists OSTEOPOROSIS SCREENING 05/07/2024 05/08/2019 DIABETES HBA1C Q 6 MONTHS 06/28/20242023, 09/21/2023, 06/18/2023, Additional history exists BREAST CANCER SCREENING 10/28/2024 10/29/19 24, 10/29/2023, 08/08/2021, Additional history exists COLORECTAL SCREENING 08/21/2031 08/20/2021, 08/20/2021, 05/09/2015 Colorectal Cancer Screening 08/21/2031 Procedures Procedure Name Priority Date/Time Associated Diagnosis Comments BASIC METABOLIC PANEL Routine 05/16/2024 4:13 PM CDT CBC MIXED CELL DIFFERENTIAL Routine 05/16/2024 3:54 PM CDT from Last 3 Months Results * BASIC METABOLIC PANEL (05/16/2024 4:13 PM CDT) Blood us Sang Kruger MD CHEMISTRY ORDERABLES Final Resu lt * CBC MIXED CELL DIFFERENTIAL (05/16/2024 3:54 PM CDT) Blood Sang Kruger MD HEMATOLOGY ORDERABLES Final Res ult from Last 3 Months Insurance MEDICARE PART A AND B [employer] SUPP MEDICARE PART A AND B [employer] SUPP Care Teams Stove Installer Relationship Specialty Start Date End Date Willam Tee MD [address] [place] [address] PCP - General Family Practice 06/07/17
--- OUTSIDE RECORDS SUMMARY | 2024-07-13 10:15 | XMS_ITS | Clinical Summary ---
Author Organization [facility] Address [address] [place] [address] Phone Care Team Providers Care Hydrogen Plant Operator Name Role Phone Willam Tee MD Primary Care Provider [phone] Allergies No known active allergies Medications ALPRAZolam (XANAX) 0.25 MG tablet TK 1 T PO BID 08/01/2019 Active escitalopram (LEXAPRO) 10 MG tablet TK 1 T PO D 05/19/2019 Active glimepiride (AMARYL) 1 MG tablet 2 (two) times a day 05/15/2019 Active losartan-hydroC HLOROthiazide (HYZAAR) 100-25 MG per tablet TK 1 T PO D 06/22/2019 Act fabby metFORMIN (GLUCOPHAGE) 500 MG tablet 08/02/2019 Activ e montelukast (SINGULAIR) 10 MG tablet TK 1 [...] TK 1 C PO D PRN 10/14/2019 Active NIFEdipine CC (ADALAT CC) 30 MG 24 hr tablet TAKE 1 TABLET(30 MG) BY MOUTH 1 TIME EACH DAY 30 tablet 6 02/16/2020 Active carvedilol (COREG) 6.25 MG tablet Take 6.25 mg by mouth every 12 (twelve) hours 08/12/2020 Active meloxicam (MOBIC) 7.5 MG tablet Take 7.5 mg by mouth 1 (one) time each day 09/13/2020 Active budesonide-form oterol (SYMBICORT) 80-4.5 MCG/ACT inhaler Inhale 2 puffs 2 times daily Active cyanocobalamin (VITAMIN B-12) 1000 MCG tablet Take 1,000 mcg by mouth daily Active ferrous sulfate 325 (65 Fe) MG tablet Take 325 mg by mouth daily Active Multiple Vitamins-Minera ls (PreserVision/L utein) capsule Take 1 capsule by mouth 2 times daily Active Active Problems Problem Noted Date Diagnosed Date Vitamin B12 deficiency anemia 11/28/2019 Benign hypertension 06/07/2017 Chronic obstructive pulmonary disease 06/07/2017 H/O: hysterectomy 06/07/2017 Leukocytosis 06/07/2017 Benign neoplasm of brain 06/07/2017 Type 2 diabetes mellitus 06/07/2017 Immunizations Immunization Administration Dates Next Due Influenza, Injectable, Quadrivalent [...] of Binge Drinking Not on file 07/10 Comments Unknown Sex and Gender Information Value Date Recorded Sex Assigned at Not on file Legal Sex Female 1:41 PM MDT Gender Identity Not on file Sexual Orientation Not on file Last Filed Vital Signs Vital Sign Reading Time Taken Comments Blood Pressure 110/64 03/31/2021 9:44 AM TURN SEWER Pulse - - Temperature 36.6 C (97.9 F) 03/31/2021 9:44 AM TURN SEWER Respiratory Rate 18 03/31/2021 9:44 AM TURN SEWER Oxygen Saturation - - Inhaled Oxygen Concentration - - Weight 96.2 kg (212 lb) 03/31/2021 9:44 AM TURN SEWER Height 162.6 cm (5' 4) 03/31/2021 9:44 AM TURN SEWER Body Mass Index 36.39 03/31/2021 9:44 AM TURN SEWER Plan of Treatment Health Maintenance Due Date Last Done Comments Pneumococcal PPSV23/PCV13 65 + Years / Low and Medium Risk (1 of 4 - PCV) 09/04/1999 Influenza Vaccine (Season Ended) 2024 Insurance MEDICARE [facility] Care Teams Hydrogen Plant Operator Relationship Specialty Start Date End Date Willam Tee MD [address] [place] [address] PCP - General Family Medicine 08/01/19
[2024-07-13 16:51] LABS: Thyroid Stimulating Hormone 0.274 uIU/mL (0.465-4.680)
[2024-07-13 23:59] LABS: Vitamin D 25 Hydroxy 21.5 ng/mL
== END 2024-07-13 09:30 | disposition home or self-care (01) ==
LOC: ANHLAB 09:31
PROVIDERS: PCP Family Medicine; Visit Provider Nurse Practitioner Family
DX: F41.9 Anxiety disorder, unspecified (principal); E55.9 Vitamin D deficiency, unspecified; Z13.29 Encounter for screening for other suspected endocrine disorder
CPT/HCPCS: 36415; 82306; 84443

== ENCOUNTER 2024-07-19 08:40 | Outpatient (CLI) | payer MEDICARE, SELFPAY ==
--- NOTE | ~2024-07-19 | XR_ITS ---
[id number] 07/19/2024 08:56 Indication: Left knee pain Procedure: 2 views left knee Comparison: No prior studies for comparison. Findings: There is mild tricompartment osteoarthritis. Moderate joint effusion. No fracture, subluxat ion or dislocation. Impression: 1: Mild tricompartment osteoarthritis. Reviewed, dictated and finalized at location B. Impression: 1: Mild tricompartment osteoarthritis.
== END 2024-07-19 08:41 | disposition home or self-care (01) ==
PROVIDERS: PCP Family Medicine; Visit Provider Nurse Practitioner Adult Health
DX: M25.562 Pain in left knee (principal); M17.12 Unilateral primary osteoarthritis, left knee
CPT/HCPCS: 73560

== ENCOUNTER 2024-07-27 08:21 | Outpatient (CLI) | payer MEDICARE, SELFPAY ==
--- OUTSIDE RECORDS SUMMARY | 2024-07-27 08:32 | XMS_ITS | Clinical Summary ---
Author Organization [facility] Address [address] [place] [phone] Phone Care Team Providers Care Regional [employer] Company Driver Name Role Phone Willam Tee MD Primary Care Provider [phone] Allergies No known active allergies Medications ALPRAZolam [...] Comments Blood Pressure 110/64 03/31/2021 9:44 AM AUTOMOTIVE SALES EXECUTIVE Pulse - - Temperature 36.6 C (97.9 F) 03/31/2021 9:44 AM AUTOMOTIVE SALES EXECUTIVE Respiratory Rate 18 03/31/2021 9:44 AM AUTOMOTIVE SALES EXECUTIVE Oxygen Saturation - - Inhaled Oxygen Concentration - - Weight 96.2 kg (212 lb) 03/31/2021 9:44 AM AUTOMOTIVE SALES EXECUTIVE Height 162.6 cm (5' 4) 03/31/2021 9:44 AM AUTOMOTIVE SALES EXECUTIVE Body Mass Index 36.39 03/31/2021 9:44 AM AUTOMOTIVE SALES EXECUTIVE Plan of Treatment Health Maintenance Due Date Last Done Comments Pneumococcal PPSV23/PCV13 65 + Years / Low and Medium Risk (1 of 4 - PCV) 09/04/1999 Influenza Vaccine (Season Ended) 2024 Insurance MEDICARE [facility] Care Teams [employer] Driver Relationship Specialty Start Date End Date Willam Tee MD [address] [place] [address] PCP - General Family Medicine 08/01/19
--- OUTSIDE RECORDS SUMMARY | 2024-07-27 08:32 | XMS_ITS | Clinical Summary ---
Author Organization [facility] [employer] Address [address] [place] [address] Care Team Providers Care Dietary Supervisor Name Role Phone Willam Tee MD Primary Care Provider [phone] Source Comments [facility] [employer],non-owned Affiliates and Associated Physician Practices is amultiple site organization consisting of ambulatory clinics and hospital sitesin [place], [place], [place] and [place]. This disclosure is being madepursuant to the Care Everywhere program and may not contain all information available regarding this patient. Last updated 17.[facility] [employer] Allergies No known active allergies Medications * [...] Comments Blood Pressure 189/90 01/30/2022 8:53 AM RELATIONS SPECIALIST Pulse 76 01/30/2022 8:53 AM RELATIONS SPECIALIST Temperature - - Respiratory Rate - - Oxygen Saturation - - Inhaled Oxygen Concentration - - Weight 93.4 kg (206 lb) 01/30/2022 8:53 AM RELATIONS SPECIALIST Height 162.6 cm (5' 4) 01/30/2022 8:53 AM RELATIONS SPECIALIST Body Mass Index 35.36 01/30/2022 8:53 AM RELATIONS SPECIALIST Plan of Treatment Health Maintenance Due Date [...] complete this topic Insurance MEDICARE Care Teams Dietary Supervisor Relationship Specialty Start Date End Date Willam Tee MD [address] [place] [address] PCP - General 06/30/21
--- OUTSIDE RECORDS SUMMARY | 2024-07-27 08:32 | XMS_ITS | Clinical Summary ---
Author Organization [facility] Address [address] [place] [address] Care Team Providers Care Dock Superintendent Name Role Phone Willam eTe MD Primary Care Provider Allergies No known [...] inhalation 2 times daily. Active Vit C-Vit Q-Cwnhvx-XtTl-Marley tein (PRESERVISION) 226 mg-200 unit -5 mg-0.8 [...] Encounters Date Type Department Care Team Description 07/25/2024 External Device Data STL ABSTRACTION Provider, Abstract 05/26/2024 8:45 AM CDT Office Visit [facility] Oncology and Hematology - [place] [address] [place] [address] Sang Kruger MD Chronic anemia (Primary Dx) 05/16/2024 Orders Only [facility] Oncology and Hematology - [place] [address] [place] [address] Sang Kruger MD from Last 3 Months Family History Medical [...] st Contact Info) Description 03/09/2025 8:30 AM CEPHALOMETRIC ANALYST Office Visit [facility] Oncology and Hematology - [place] [address] [place] [address] Sang Kruger MD [address] [facility] [address] [place] [address] Health Maintenance Due Date Last [...] Months Insurance MEDICARE PART A AND B [employer] SUPP MEDICARE PART A AND B [employer] SUPP Care Teams Dock Superintendent Relationship Specialty Start Date End Date Willam Tee MD [address] [place] [address] PCP - General Family Practice 06/07/17
--- OUTSIDE RECORDS SUMMARY | 2024-07-27 08:32 | XMS_ITS | Encounter Summary ---
Author Organization [facility] Address [address] [place] [address] Care Team Providers Care Supervisor Airplane Flight Attendant Name Role Phone Willam Tee MD Primary Care Provider Encounter Details Date Type Department Care Team (Late st Contact Info) Description 07/25/2024 External Device Data STL ABSTRACTION Provider, Abstract NO ADDRESS ON FILE Social History Tobacco Use Types Packs/Day Years Used Date Smoking Tobacco: Never Alcohol Use Standard Drinks/Week Comments No 0 (1 standard drink = 0.6 oz pur e alcohol) Comments No Sex and Gender Information Value Date Recorded Sex Assigned at Not on file Legal Sex Female 3:16 PM CDT Gender Identity Not on file Sexual Orientation Not on file documented as of this encounter Plan of Treatment Upcoming Encounters Date Type Department Care Team (Late Contact Info) Description 03/09/2025 8:30 AM PHYSICIAN EXECUTIVE Office Visit [facility] Oncology and Hematology - [place] [address] [place] [address] [address] [place] [address] Sang Kruger MD [address] [facility] [address] [place] [address] documented as of this encounter Visit Diagnoses Not on filedocumented in this encounter Care Teams Supervisor Airplane Flight Attendant Relationship Specialty Start Date End Date Willam Tee MD [address] [place] [address] PCP - General Family Practice 06/07/17 documented as of this encounter
[2024-07-27 10:09] LABS: Cholesterol 111 mg/dL (0-200); HDL Direct 34 mg/dL; Triglycerides 184 mg/dL (<150)
[2024-07-27 10:19] LABS: LDL Cholesterol Direct 38 mg/dL
[2024-07-27 11:14] LABS: Free T4 Free Thyroxine 1.04 ng/dL (0.78-2.19)
[2024-07-31 11:58] LABS: Thyroid Peroxidase Antibodies. 1 IU/mL (<9)
== END 2024-07-27 08:22 | disposition home or self-care (01) ==
LOC: ANHLAB 08:23
PROVIDERS: Nurse Practitioner Family; PCP Family Medicine; Visit Provider Family Medicine
DX: R79.89 Other specified abnormal findings of blood chemistry (principal); E55.9 Vitamin D deficiency, unspecified; E04.2 Nontoxic multinodular goiter; F41.9 Anxiety disorder, unspecified; Z13.29 Encounter for screening for other suspected endocrine disorder
CPT/HCPCS: 36415; 80061; 84439; 84443; 86376

== ENCOUNTER 2024-10-11 08:35 | Outpatient (CLI) | payer MEDICARE, SELFPAY ==
[2024-10-11 08:51] LABS: Hematocrit 38.3 % (37.0-47.0); Hemoglobin 12.3 g/dL (12.0-15.0); Immature Granulocyte Percent A 0.3 % (0-0.5); Lymphocytes Absolute Auto 2.13 K/mm3 (0.9-3.2); Mean Corpuscular HGB Conc 32.1 g/dl (32-36); Mean Corpuscular Hemoglobin 30.4 pg (26-34); Mean Corpuscular Volume 94.6 fl (80-100); Nucleated Red Blood Cells Absolute Auto 0.000 K/mm3 (0.0-0.012); Nucleated Red Blood Cells Perc 0.0 % (0.0-0.2); Platelet Count Result 260 k/mm3 (150-375); Red Blood Count 4.05 M/mm3 (4.2-5.4); White Blood Count 11.0 K/mm3 (4.5-10.0)
--- OUTSIDE RECORDS SUMMARY | 2024-10-11 08:57 | XMS_ITS | Clinical Summary ---
Author Organization [facility] Address [address] [place] [address] Care Team Providers Care Blacksmith Hammer Operator Name Role Phone Willam Tee MD Primary Care Provider [phone] Allergies No known active allergies Medications metoprolol [...] inhalation 2 times daily. Active Vit C-Vit T-Pmzbct-IeCg-Marley tein (PRESERVISION) 226 mg-200 unit -5 mg-0.8 [...] Encounters Date Type Department Care Team Description 09/13/2024 External Device Data STL ABSTRACTION Provider, Abstract 08/23/2024 External Device Data STL ABSTRACTION Provider, Abstract 08/22/2024 External Device Data STL ABSTRACTION Provider, Abstract 07/25/2024 External Device Data STL ABSTRACTION Provider, [...] st Contact Info) Description 03/09/2025 8:30 AM TEACHER OF THE HANDICAPPED Office Visit [facility] Oncology and Hematology - [place] [address] [place] [address] Sang Kruger MD [address] [facility] [address] [place] [address] Health Maintenance Due Date Last Done Comments DIABETES ANNUAL FOOT EXAM 09/04/1967 DIABETES MICROALBUMIN ANNUAL SCREEN 09/04/1967 LDL CHOLESTEROL ANNUAL 09/04/1967 DTAP/TDAP/TD VACCINES (1 - Tdap) 1968 PNEUMOCOCCAL VACCINE 50+ YEA RS (1 of 2 - PCV) 1968 FIT-DNA Q 3 years 1994 FIT/FOBT Q 1 year 1994 Flex Sig/CT Colonography Q 5 years 1994 ZOSTER VACCINE (1 of 2) 09/04/1999 DIABETES ANNUAL RETINAL EXAM 03/12/202403/2023, 02/11/2022, 10/28/2020, Additional history exists OSTEOPOROSIS SCREENING 05/07/2024 05/08/2019 RSV VACCINE (60+ or ) (1 - 1-dose 75+ series) 2024 INFLUENZA VACCINE (#1) 2024 11/06/2019 DIABETES HBA1C Q 6 MONTHS 10/04/20242024, 12/30/2023, 09/21/2023, Additional history exists COLORECTAL SCREENING 08/21/2031 08/20/2021, 08/20/2021, 05/09/2015 Colorectal Cancer Screening 08/21/2031 Insurance [address] [place] [id number] MEDICARE PART A AND B [facility] MEDICARE PART A AND B [facility] Care Teams Blacksmith Hammer Operator Relationship Specialty Start Date End Date Willam Tee MD [address] [place] [address] PCP - General Family Practice 06/07/17
--- OUTSIDE RECORDS SUMMARY | 2024-10-11 08:57 | XMS_ITS | Clinical Summary ---
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 ([facility]) 05/29/2020 Social History Tobacco Use Types [...] Comments Blood Pressure 181/74 12/22/2022 8:16 AM PILLOWCASE CUTTER Pulse 58 12/22/2022 8:16 AM PILLOWCASE CUTTER Temperature - - Respiratory Rate - - Oxygen Saturation 98% 12/22/2022 8:16 AM PILLOWCASE CUTTER Inhaled Oxygen Concentration - - Weight 97.3 kg (214 lb 6.4 oz) 12/22/2022 8:16 A M PILLOWCASE CUTTER Height 162.6 cm (5' 4) 12/19/2021 9:15 AM PILLOWCASE CUTTER Body Mass Index 36.8 12/19/2021 9:15 AM PILLOWCASE CUTTER Plan of Treatment Upcoming Encounters Date Type Department Care Team (Late st Contact Info) Description 12/26/2024 8:00 AM PILLOWCASE CUTTER Appointment [facility] Radiation Oncology [address] [place] [address] Raghu Helm MD [address] [place] [address] [address] [place] [address] Health Maintenance Due Date Last Done Comments Colorectal Cancer Screening Colonoscopy (10 Years) 1950 Hepatitis C 09/04/1967 DTaP, Tdap and Td Vaccines ( 1 - Tdap) 1968 Zoster Vaccines (1 of 2) 09/04/1999 Annual Medicare Wellness Visit 2014 Dexa Scan (General) 2014 Pneumococcal Vaccine: 50+ Ye ars (2 of 2 - PPSV23) 11/15/2017 11/15/2016 COVID-19 Vaccine (2 - 2023-2 [...] age to complete this topic Insurance MEDICARE [facility] Care Teams Shipping Room Supervisor Relationship Specialty Start Date End Date Willam Tee MD [address] [place] [address] PCP - General FAMILY PRACTICE 08/03/18
--- OUTSIDE RECORDS SUMMARY | 2024-10-11 08:57 | XMS_ITS | Clinical Summary ---
Author Organization [facility] [employer] Address [address] [place] [address] Phone Care Team Providers Care Business Services Tech Name Role Phone Willam Tee MD Primary Care Provider [phone] Allergies No known active allergies Medications ALPRAZolam [...] Comments Blood Pressure 110/64 03/31/2021 9:44 AM PAYROLL MASTER Pulse - - Temperature 36.6 C (97.9 F) 03/31/2021 9:44 AM PAYROLL MASTER Respiratory Rate 18 03/31/2021 9:44 AM PAYROLL MASTER Oxygen Saturation - - Inhaled Oxygen Concentration - - Weight 96.2 kg (212 lb) 03/31/2021 9:44 AM PAYROLL MASTER Height 162.6 cm (5' 4) 03/31/2021 9:44 AM PAYROLL MASTER Body Mass Index 36.39 03/31/2021 9:44 AM PAYROLL MASTER Plan of Treatment Health Maintenance Due Date Last Done Comments Pneumococcal PPSV23/PCV13 65 + Years / Low and Medium Risk (1 of 2 - PCV) 09/04/1999 Influenza Vaccine (#1) 2024 Insurance MEDICARE [facility] Care Teams Business Services Tech Relationship Specialty Start Date End Date Willam Tee MD [address] [place] [address] PCP - General Family Medicine 08/01/19
--- OUTSIDE RECORDS SUMMARY | 2024-10-11 08:57 | XMS_ITS | Clinical Summary ---
Author Organization [facility] [employer] Address [address] [place] [address] Care Team Providers Care Circular Knitter Name Role Phone Willam Tee MD Primary Care Provider [phone] Source Comments [facility] [employer],non-owned Affiliates and Associated Physician Practices is amultiple site organization consisting of ambulatory clinics and hospital sitesin [place], [place], [place] and [place]. This disclosure is being madepursuant to the Care Everywhere program and may not contain all information available regarding this patient. Last updated 17.[facility] [employer] Allergies No known active allergies Medications * [...] Comments Blood Pressure 189/90 01/30/2022 8:53 AM TALENT SCOUT Pulse 76 01/30/2022 8:53 AM TALENT SCOUT Temperature - - Respiratory Rate - - Oxygen Saturation - - Inhaled Oxygen Concentration - - Weight 93.4 kg (206 lb) 01/30/2022 8:53 AM TALENT SCOUT Height 162.6 cm (5' 4) 01/30/2022 8:53 AM TALENT SCOUT Body Mass Index 35.36 01/30/2022 8:53 AM TALENT SCOUT Plan of Treatment Health Maintenance Due Date [...] 75+ series) 2024 INFLUENZA VACCINE (#1) 2024 2, 11/06/2019 HEPATITIS B VACCINE Aged Out No [...] complete this topic Insurance MEDICARE Care Teams Circular Knitter Relationship Specialty Start Date End Date Willam Tee MD [address] [place] [address] PCP - General 06/30/21
[2024-10-11 09:12] LABS: Anion Gap 12 mmol/L (4-12); Blood Urea Nitrogen 23 mg/dL (7-17); Calcium 9.4 mg/dL (8.4-10.2); Carbon Dioxide 26 mmol/L (22-30); Chloride 102 mmol/L (98-107); Estimated Glomerular Filt Rate 52; Glucose 109 mg/dL (65-110); Potassium 4.0 mmol/L (3.4-5.0); Sodium 140 mmol/L (137-145)
[2024-10-11 09:37] LABS: MALB Creatinine Ratio 107.6 mg/g (0-30)
== END 2024-10-11 08:36 | disposition home or self-care (01) ==
PROVIDERS: PCP Family Medicine; Visit Provider Physician Assistant Medical
DX: E11.65 Type 2 diabetes mellitus with hyperglycemia (principal); E11.29 Type 2 diabetes mellitus with other diabetic kidney complication; I10 Essential (primary) hypertension; R80.9 Proteinuria, unspecified
CPT/HCPCS: 36415; 80048; 82043; 85025

== ENCOUNTER 2024-11-10 08:37 | Outpatient (CLI) | payer MEDICARE, SELFPAY ==
--- OUTSIDE RECORDS SUMMARY | 2024-11-10 08:44 | XMS_ITS | Clinical Summary ---
Author Organization [facility] [employer] Address [address] [place] [address] Care Team Providers Care Electric Welder Name Role Phone Willam Tee MD Primary Care Provider [phone] Source Comments [facility] [employer],non-owned Affiliates and Associated Physician Practices is amultiple site organization consisting of ambulatory clinics and hospital sitesin [place], [place], [place] and [place]. This disclosure is being madepursuant to the Care Everywhere program and may not contain all information available regarding this patient. Last updated 17.[facility] [employer] Allergies No known active allergies Medications * [...] Comments Blood Pressure 189/90 01/30/2022 8:53 AM FENCE LABORER Pulse 76 01/30/2022 8:53 AM FENCE LABORER Temperature - - Respiratory Rate - - Oxygen Saturation - - Inhaled Oxygen Concentration - - Weight 93.4 kg (206 lb) 01/30/2022 8:53 AM FENCE LABORER Height 162.6 cm (5' 4) 01/30/2022 8:53 AM FENCE LABORER Body Mass Index 35.36 01/30/2022 8:53 AM FENCE LABORER Plan of Treatment Health Maintenance Due Date [...] 09/04/1999 ZOSTER VACCINE (1 of 2) 09/04/1999 DEPRESSION SCREENING 02/09/2024 Respiratory Syncytial Virus (RSV) Vaccine Pt: or over 60 yrs (1 - 1-dose 75+ series) 2024 COVID-19 VACCINE (2 - 2024-2 6 season) 2024 04/28/2020 INFLUENZA VACCINE (#1) 2024 2, 11/06/2019 HEPATITIS [...] complete this topic Insurance MEDICARE Care Teams Electric Welder Relationship Specialty Start Date End Date Willam Tee MD [address] [place] [address] PCP - General 06/30/21
--- OUTSIDE RECORDS SUMMARY | 2024-11-10 08:44 | XMS_ITS | Clinical Summary ---
Author Organization [facility] Address [address] [place] [address] Care Team Providers Care Wildlife Biostation Research Ecologist Name Role Phone Willam Tee MD Primary [...] inhalation 2 times daily. Active Vit C-Vit Z-Mzmhqu-KvVp-Marley tein (PRESERVISION) 226 mg-200 unit -5 mg-0.8 [...] st Contact Info) Description 03/09/2025 8:30 AM YARD BRAKEMAN Office Visit [facility] Oncology and Hematology - [place] [address] [place] [address] Sang Kruger MD [address] [facility] [address] [place] [address] Health Maintenance Due Date Last [...] 08/20/2021, 05/09/2015 Colorectal Cancer Screening 08/21/2031 Insurance MEDICARE PART A AND B BCBS SUPP MEDICARE PART A AND B BCBS [facility] Care Teams Wildlife Biostation Research Ecologist Relationship Specialty Start Date End Date Willam Tee MD [address] [place] [address] PCP - General Family Practice 06/07/17
--- OUTSIDE RECORDS SUMMARY | 2024-11-10 08:44 | XMS_ITS | Clinical Summary ---
Author Organization [facility] Address [address] [place] [address] Phone Care Team Providers Care Postulant Name Role Phone Willam Tee MD Primary Care Provider [phone] Allergies No known active allergies Medications ALPRAZolam [...] Comments Blood Pressure 110/64 03/31/2021 9:44 AM UNION STEWARD Pulse - - Temperature 36.6 C (97.9 F) 03/31/2021 9:44 AM UNION STEWARD Respiratory Rate 18 03/31/2021 9:44 AM UNION STEWARD Oxygen Saturation - - Inhaled Oxygen Concentration - - Weight 96.2 kg (212 lb) 03/31/2021 9:44 AM UNION STEWARD Height 162.6 cm (5' 4) 03/31/2021 9:44 AM UNION STEWARD Body Mass Index 36.39 03/31/2021 9:44 AM UNION STEWARD Plan of Treatment Health Maintenance Due Date Last Done Comments Pneumococcal PPSV23/PCV13 65 + Years / Low and Medium Risk (1 of 2 - PCV) 09/04/1999 Influenza Vaccine (#1) 2024 Insurance MEDICARE [facility] Care Teams Postulant Relationship Specialty Start Date End Date Willam Tee MD [address] [place] [address] PCP - General Family Medicine 08/01/19
[2024-11-10 13:48] LABS: Anion Gap 9 mmol/L (4-12); Blood Urea Nitrogen 21 mg/dL (7-17); Calcium 9.0 mg/dL (8.4-10.2); Carbon Dioxide 28 mmol/L (22-30); Chloride 102 mmol/L (98-107); Estimated Glomerular Filt Rate 55; Glucose 114 mg/dL (65-110); Potassium 3.8 mmol/L (3.4-5.0); Sodium 139 mmol/L (137-145)
== END 2024-11-10 08:38 | disposition home or self-care (01) ==
LOC: ANHLAB 08:38
PROVIDERS: PCP Physician Assistant Medical; Visit Provider Physician Assistant Medical
DX: N18.30 Chronic kidney disease, stage 3 unspecified (principal)
CPT/HCPCS: 36415; 80048

== ENCOUNTER 2024-11-20 07:25 | Outpatient (CLI) | payer MEDICARE, SELFPAY ==
--- NOTE | ~2024-11-20 | MM_ITS ---
EXAMINATION: MM screening salud BI w jazmin HISTORY: Screening TECHNIQUE: Craniocaudal and mediolateral oblique 3-D tomosynthesis images were obtained and synthetic 2-D images were generated. CAD analysis was submitted and interpreted. COMPARISON: 10/29/2023 BREAST PARENCHYMAL COMPOSITION: The breasts are heterogeneously dense, which may obscure small masses. FINDINGS: There is no evidence of suspicious mass, calcification, or architectural distortion to suggest malignancy. There has been no suspicious interval change. IMPRESSION: 1. No mammographic evidence of malignancy. Recommend routine screening mammography in one year. BI-RADS Category 2: Benign finding(s) Reviewed, dictated and finalized at location Q. IMPRESSION: 1. No mammographic evidence of malignancy. Recommend routine screening mammogra phy in one year. BI-RADS Category 2: Benign finding(s)
--- OUTSIDE RECORDS SUMMARY | 2024-11-20 07:29 | XMS_ITS | Clinical Summary ---
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 Social History Tobacco Use Types Packs/Day [...] Comments Blood Pressure 181/74 12/22/2022 8:16 AM GUEST HOUSE MANAGER Pulse 58 12/22/2022 8:16 AM GUEST HOUSE MANAGER Temperature - - Respiratory Rate - - Oxygen Saturation 98% 12/22/2022 8:16 AM GUEST HOUSE MANAGER Inhaled Oxygen Concentration - - Weight 97.3 kg (214 lb 6.4 oz) 12/22/2022 8:16 A M GUEST HOUSE MANAGER Height 162.6 cm (5' 4) 12/19/2021 9:15 AM GUEST HOUSE MANAGER Body Mass Index 36.8 12/19/2021 9:15 AM GUEST HOUSE MANAGER Plan of Treatment Upcoming Encounters Date Type Department Care Team (Late st Contact Info) Description 12/26/2024 8:00 AM GUEST HOUSE MANAGER Appointment [facility] Radiation Oncology [address] [place] [address] [place] [address] Raghu Helm MD [address] [place] [address] [place] [address] Health Maintenance Due Date Last Done Comments Colorectal Cancer Screening Colonoscopy (10 Years) 1949 Hepatitis C 09/04/1967 DTaP, Tdap and Td Vaccines (1 - Tdap) 1968 Zoster Vaccines (1 of 2) 09/04/1999 Annual Medicare Wellness Visit 2014 Dexa Scan (General) 2014 Pneumococcal Vaccine: 50+ Years (2 of 2 - PCV20 or PCV21) 11/15/2017 11/15/2016 RSV Immunization or 60+ Years (1 - 1-dose 75+ series) 2024 COVID-19 Vaccine (2 - season) 2024 04/28/2020 Influenza Adult (#1) 2024 12/09/2021, 11/06/2019, 10/18/2018, Additional history exists Hepatitis A Vaccines Aged Out No long er eligible based on patient's age to complete this topic Meningococcal B Vaccine Aged Out No l onger eligible based on patient's age to complete this topic Meningococcal Vaccine Aged Out No kirk deric eligible based on patient's age to complete this topic RSV Immunizations Under 20 Months Aged Out No longer eligible based on patient's age to complete this topic Insurance MEDICARE [facility] Care Teams Architectural Design Professor Relationship Specialty Start Date End Date Willam Tee MD [address] [address] PCP - General FAMILY PRACTICE 08/03/18
--- OUTSIDE RECORDS SUMMARY | 2024-11-20 07:29 | XMS_ITS | Clinical Summary ---
Author Organization [facility] Address [address] [place] [address] Phone Care Team Providers Care Napper Grinder Name Role Phone Willam Tee MD Primary Care Provider [phone] Allergies No known active allergies Medications ALPRAZolam [...] Comments Blood Pressure 110/64 03/31/2021 9:44 AM SKIN CARE SPECIALIST Pulse - - Temperature 36.6 C (97.9 F) 03/31/2021 9:44 AM SKIN CARE SPECIALIST Respiratory Rate 18 03/31/2021 9:44 AM SKIN CARE SPECIALIST Oxygen Saturation - - Inhaled Oxygen Concentration - - Weight 96.2 kg (212 lb) 03/31/2021 9:44 AM SKIN CARE SPECIALIST Height 162.6 cm (5' 4) 03/31/2021 9:44 AM SKIN CARE SPECIALIST Body Mass Index 36.39 03/31/2021 9:44 AM SKIN CARE SPECIALIST Plan of Treatment Health Maintenance Due Date Last Done Comments Pneumococcal PPSV23/PCV13 65 + Years / Low and Medium Risk (1 of 2 - PCV) 09/04/1999 Influenza Vaccine (#1) 2024 Insurance MEDICARE [facility] Care Teams Napper Grinder Relationship Specialty Start Date End Date Willam Tee MD [address] [place] [address] PCP - General Family Medicine 08/01/19
--- OUTSIDE RECORDS SUMMARY | 2024-11-20 07:30 | XMS_ITS | Clinical Summary ---
Author Organization [facility] Address [address] [place] [address] Care Team Providers Care Administrative Asst Name Role Phone Willam Tee MD Primary [...] inhalation 2 times daily. Active Vit C-Vit C-Jzprlt-RdVl-Marley tein (PRESERVISION) 226 mg-200 unit -5 mg-0.8 [...] st Contact Info) Description 03/09/2025 8:30 AM BLOOD COORDINATOR Office Visit [facility] Oncology and Hematology - [place] [address] [place] [address] Sang Kruger MD [address] [facility] [address] [place] [address] Health Maintenance Due Date Last [...] SUPP MEDICARE PART A AND B BCBS [facility] Care Teams Administrative Asst Relationship Specialty Start Date End Date Willam Tee MD [address] [place] [phone] PCP - General Family Practice 06/07/17
--- OUTSIDE RECORDS SUMMARY | 2024-11-20 07:30 | XMS_ITS | Clinical Summary ---
Author Organization [facility] [employer] Address [address] [place] [address] Care Team Providers Care Continuous Washer Operator Name Role Phone Willam Tee MD Primary Care Provider [phone] Source Comments [facility] [employer],non-owned Affiliates and Associated Physician Practices is amultiple site organization consisting of ambulatory clinics and hospital sitesin [place], [place], [place] and [place]. This disclosure is being madepursuant to the Care Everywhere program and may not contain all information available regarding this patient. Last updated 17.[facility] [employer] Allergies No known active allergies Medications * [...] Comments Blood Pressure 189/90 01/30/2022 8:53 AM TECHNOLOGY PROGRAM MANAGER Pulse 76 01/30/2022 8:53 AM TECHNOLOGY PROGRAM MANAGER Temperature - - Respiratory Rate - - Oxygen Saturation - - Inhaled Oxygen Concentration - - Weight 93.4 kg (206 lb) 01/30/2022 8:53 AM TECHNOLOGY PROGRAM MANAGER Height 162.6 cm (5' 4) 01/30/2022 8:53 AM TECHNOLOGY PROGRAM MANAGER Body Mass Index 35.36 01/30/2022 8:53 AM TECHNOLOGY PROGRAM MANAGER Plan of Treatment Health Maintenance Due Date [...] complete this topic Insurance MEDICARE Care Teams Continuous Washer Operator Relationship Specialty Start Date End Date Willam Tee MD [address] [place] [address] PCP - General 06/30/21
== END 2024-11-20 07:26 | disposition home or self-care (01) ==
LOC: ANHIMG 07:28
PROVIDERS: PCP Physician Assistant Medical; Visit Provider Physician Assistant Medical
DX: Z12.31 Encounter for screening mammogram for malignant neoplasm of breast (principal)
CPT/HCPCS: 77063; 77067